=== PATIENT | female | born 2000 | race Two or more races ===

== ENCOUNTER 2024-02-28 10:11 | Observation (INO) | payer MEDICAID, SELFPAY ==
[2024-02-28] VITALS (130 sets, daily range): BP systolic 56–122; BP diastolic 35–86; PULSE 88–144; TEMP 36.6–37.2; O2SAT 60–100; BMI 33.1; BMI 34.4
--- NOTE | 2024-02-28 10:27 | ECG_ITS ---
[facility] Test Date: 2024-02-28 Pat Name: MAYELIN TAYLOR Department: Room: - Gender: Female Rn Lab: : 2000 Requested By: [id number] Order Number: [id number] Reading MD: LIZETH LARIOS Measurements Intervals [place] Rate: 90 P: 30 LA: 144 QRS: 49 QRSD: 72 T: 24 QT: 358 QTc: 406 Interpretive Statements 1100 Sinus rhythm 9110 normal ECG No previous ECG available for comparison Electronically Signed On 03-01-2024 7:32:32 EDT by LIZETH LARIOS
[2024-02-28] MEDS: 0.9 % SODIUM CHLORIDE 1,000 ML 1000 ML IV ×3 (10:45→19:00)
[2024-02-28 10:50] LABS: Basophils Percent Auto 0.2 % (0.2-2.0); Eosinophils Absolute Auto 0.1 10^3/uL (0.0-0.7); Eosinophils Percent Auto 0.8 % (0.9-7.0); Hematocrit 30.1 % (36.0-48.0); Hemoglobin 9.9 g/dL (12.0-16.0); Immature Granulocytes Abs Auto 0.02 10^3/uL (0.00-0.03); Immature Granulocytes Pct Auto 0.2 % (0.0-0.5); Lymphocytes Absolute Auto 2.1 10^3/uL (1.2-3.8); Lymphocytes Percent Auto 24.7 % (20.5-60.0); Mean Corpuscular HGB Conc 32.9 g/dL (29.9-35.2); Mean Corpuscular Hemoglobin 29.4 pg (26.7-34.0); Mean Corpuscular Volume 89.3 fL (81.0-99.0); Mean Platelet Volume 10.1 fL (9.5-13.5); Monocytes Absolute Auto 0.4 10^3/uL (0.3-0.8); Monocytes Percent Auto 4.8 % (1.7-12.0); Neutrophils Percent Auto 69.3 % (43.0-75.0); Platelet Count 335 10^3/uL (150-450); Red Blood Count 3.37 10^6/uL (4.20-5.40); Red Cell Distribution Width 13.8 % (11.0-15.0); White Blood Count 8.6 10^3/uL (4.0-11.0)
[2024-02-28 11:31] LABS: Alanine Aminotransferase 27 U/L (14-59); Albumin Level 3.4 g/dL (3.4-5.0); Alkaline Phosphatase 63 U/L (46-116); Anion Gap 11.8; Aspartate Amino Transferase 18 U/L (15-37); BUN Creatinine Ratio 11.9; Bilirubin Total 0.3 mg/dL (0.2-1.0); Calcium 8.3 mg/dL (8.5-10.1); Carbon Dioxide 24.9 mmol/L (21.0-32.0); Chloride 105 mmol/L (98-107); Estimated GFR (African America >60 (>=60); Estimated GFR (Non-African Ame >60 (>=60); Globulin 3.4 g/dL; Glucose 114 mg/dL (74-106); Potassium 3.7 mmol/L (3.5-5.1); Sodium 138 mmol/L (136-145); Total Protein 6.8 g/dL (6.4-8.2); Troponin I High Sensitivity 6.1 pg/mL (4.0-51.3)
[2024-02-28 11:32] LABS: HCG Quantitative 1747 mIU/mL; Magnesium 1.6 mg/dL (1.8-2.4)
--- NOTE | 2024-02-28 11:41 | US_ITS ---
[address] [address] Patient Name: MAYELIN TAYLOR MRN: [id number] date: 2000 Sex: F Assigned Patient Location: ER Current Patient Location: [place] Accession/Order Number: [id number] Exam Date: 02/28/2024 12:39 Report Date: 02/28/2024 14:51 At the request of: ANNMARIE NORRIS Procedure: US OB transvaginal EXAMINATION: US OB transvaginal INDICATION: vaginal bleeding 10 weeks . COMPARISON: 02/26/2024 TECHNIQUE: Transvaginal sonographic images of the pelvis were obtained. FINDINGS: Uterus size: 10.2 x 6.1 x 5.6 cm Uterus: Normal size and morphology. Normal myometrium. No intrauterine gestational sac identified. Closed cervical canal. Cervical length of 4.1 cm. Endometrial stripe thickness: 15 mm Endometrium: Normal thickness. Small volume heterogeneous avascular debris within the endometrial canal. Right Ovary: Not visualized. Right Adnexa: No abnormality. Left Ovary Size: 4.4 x 2.9 x 3.5 cm Left Ovary: Complicated 2.0 x 2.0 x 2.2 cm cyst containing echogenic debris. Left Ovarian Flow: Not performed. Left Adnexa: No abnormality. Free Fluid: None. US/US OB transvaginal IMPRESSION: 1. Gestational sac no longer present within the uterus. 2. Small volume hemorrhagic debris versus retained products of conception in the endometrial canal. 3. Left ovary 2.2 cm hemorrhagic cyst. 4. Right ovary not visualized. Electronically authenticated by: SILVESTRE ROLDAN Date: 02/28/2024 14:51
--- NOTE | 2024-02-28 12:25 | ED_ITS ---
HPI - Female Genitourinary General Chief complaint: Vaginal Bleeding Stated complaint: ABDOMINAL PAIN, POSSIBLE MISCARRIAGE Time Seen by Provider: 02/28/24 10:26 Source: patient Mode of arrival: walk-in Limitations: no limitations History of Present Illness HPI Narrative: The patient is 10 weeks according to her last evaluation by her OB doctor on February 09, at that time there was no heart sound detected and her was nonviable and she was supposed to go for D&C on March 08, 2 days ago the patient started having vaginal bleeding and she mentioned that she has been passing clots, she has been having sometimes episodes of blacking out when she is standing up or walking in the house, this happened 3 times one of them she was in the bathroom sitting up on the toilet seat. At that time she passed for few seconds and she woke up by herself according to her significant other at the bedside, the patient pale and look weak and tired She denies any nausea or vomiting and she denies any changes bowel movement, she mentioned that the bleeding has been a blood clot that according to her significant and more than her regular menstruation The patient last menstruation was December 05 Her last ultrasound done by her OB doctor on February 09 shows intrauterine and she did had 3 miscarriages before this 1 and she have only 1 kid who is 3 years old Related Data Home Medications ?Medication ?Instructions ?Recorded ?Confirmed No Known Home Medications 02/28/24 02/28/24 Allergies Allergy/AdvReac Type Severity Reaction Status Date / Time No Known Drug Allergies Allergy Verified 02/28/24 10:18 Review of Systems ROS Status of ROS 10 or more systems reviewed and unremark able except as noted in history and below [facility] Social History Highest level of school completed/degree received: Associate degree: o ccupational, technical, vocational program Exam Narrative Exam Narrative: Nurses notes and vital signs reviewed and patient is not hypoxic. General: Well-appearing and in no apparent distress. Skin: The patient is pale and tired No rash. Head: Normocephalic, atraumatic. Neck: Supple, non-tender. Eye: Pupils are equal, round and EOMI. No scleral icterus. Ears, Nose, Mouth, and Throat: TM are clear, no nasal mucosal hypertrophy. Oral mucosa is moist, no posterior oropharynx erythema, uvula is mid-line Cardiovascular: Regular Rate and Rhythm without murmur, gallop or rub. Respiratory: No accessory muscle use or respiratory distress. Lungs are clear to auscultation, no wheezing, rales or rhonchi Chest Wall: no tenderness Back: No midline thoracic or lumbar vertebral tenderness. No CVA tenderness Musculoskeletal: normal ROM, no calf or popliteal tenderness, no lower extremity edema/swelling GI: Abdomen is soft, non-distended. Normal bowel sounds. No masses appreciated. No tenderness to palpation. No rebound, guarding, or rigidity noted. Perineal exam shows a pad that almost have 50 cc of blood in it and almost 5 to 10 cc of blood dripping Neurological: A&O x4. No cranial nerve dysfunction observed. No truncal ataxia. Moves all extremities. Sensation intact. Psychiatric: Cooperative and interactive. Normal mood and affect. Constitutional Vital Signs, click to edit/add: Last Vital Signs Temp 99 F 02/28/24 20:57 Pulse 90 02/29/24 06:21 Resp 16 02/29/24 06:17 BP 93/55 02/29/24 06:15 Pulse Ox 99 02/29/24 01:30 O2 Del Method Room Air 02/28/24 20:57 Course Vital Signs Vital signs: Vital Signs Temperature 98.5 F 02/28/24 10:18 Pulse Rate 110 H 02/28/24 10:18 Respiratory Rate 18 02/28/24 10:18 Blood Pressure 100/74 02/28/24 10:18 Pulse Oximetry 100 02/28/24 10:18 Oxygen Delivery Method Room Air 02/28/24 10:18 Temperature 99 F 02/28/24 20:57 Pulse Rate 90 02/29/24 06:21 Respiratory Rate 16 02/29/24 06:17 Blood Pressure 93/55 02/29/24 06:15 Pulse Oximetry 99 02/29/24 01:30 Oxygen Delivery Method Room Air 02/28/24 20:57 MDM - Female Genitourinary MDM Narrative Medical decision making narrative: The patient EKG upon presentation showing sinus rhythm with a heart rate of [address] elevation or depression Patient was significantly orthostatic when she presented to us The patient initially was at the 90 systolic but she still looked pale and weak Her hemoglobin was 9.9 her last hemoglobin was 11.7 on February 09 according to the workup that she had and she did open her RemitPro nadine to show me the results from [facility] The patient after her blood pressure dropped to the 80s systolic she was put in Trendelenburg position. Back RBCs ordered for 2 units of blood ,initially the plan was to put her on Levophed but after speaking with Dr. Gonzalez and the FINANCIAL [employer]ER service we will hold on using the Levophed The patient will have ultrasound transvaginal obtained Patient be admitted for observation Right now the patient heart rate is 103 and her blood pressure is 103/56 Lab Data Labs: Lab Results 02/28/24 02/28/24 Range/Units 10:35 16:02 WBC 8.6 (4.0-11.0) 10^3/uL RBC 3.37 L (4.20-5.40) 10^6/uL Hgb 9.9 L 9.0 L (12.0-16.0) g/dL Hct 30.1 L 27.7 L (36.0-48.0) % MCV 89.3 (81.0-99.0) fL MCH 29.4 (26.7-34.0) pg MCHC 32.9 (29.9-35.2) g/dL RDW 13.8 (11.0-15.0) % Plt Count 335 (150-450) 10^3/uL MPV 10.1 (9.5-13.5) fL Neut % (Auto) 69.3 (43.0-75.0) % Lymph % (Auto) 24.7 (20.5-60.0) % Andrew % (Auto) 4.8 (1.7-12.0) % Eos % (Auto) 0.8 L (0.9-7.0) % Baso % (Auto) 0.2 (0.2-2.0) % Neut # (Auto) 6.0 (1.4-6.5) 10^3/uL Lymph # (Auto) 2.1 (1.2-3.8) 10^3/uL Andrew # (Auto) 0.4 (0.3-0.8) 10^3/uL Eos # (Auto) 0.1 (0.0-0.7) 10^3/uL Baso # (Auto) 0.0 (0.0-0.1) 10^3/uL Abs Immat Gran (auto) 0.02 (0.00-0.03) 10^3/uL Imm/Tot Granulo (auto) 0.2 (0.0-0.5) % PT 10.9 (9.0-11.6) sec INR 1.03 APTT 25.5 (22.3-36.2) sec Sodium 138 (136-145) mmol/L Potassium 3.7 (3.5-5.1) mmol/L Chloride 105 (98-107) mmol/L Carbon Dioxide 24.9 (21.0-32.0) mmol/L Anion Gap 11.8 BUN 8.0 (7.0-18.0) mg/dL Creatinine 0.67 (0.55-1.02) mg/dL Est GFR ( Amer) >60 (>=60) Est GFR (Non-Af Amer) >60 (>=60) BUN/Creatinine Ratio 11.9 Glucose 114 H (74-106) mg/dL Lactate 1.7 (0.4-2.0) mmol/L Calcium 8.3 L (8.5-10.1) mg/dL Magnesium 1.6 L 2.0 (1.8-2.4) mg/dL Total Bilirubin 0.3 (0.2-1.0) mg/dL AST 18 (15-37) U/L ALT 27 (14-59) U/L Alkaline Phosphatase 63 (46-116) U/L Troponin I High Sens 6.1 (4.0-51.3) pg/mL Total Protein 6.8 (6.4-8.2) g/dL Albumin 3.4 (3.4-5.0) g/dL Globulin 3.4 g/dL Albumin/Globulin Ratio 1.0 TSH 3.539 (0.358-3.740) uIU/mL Free T4 0.83 (0.76-1.46) ng/dL HCG, Quant 1747 mIU/mL Blood Type O Positive Antibody Screen Negative Crossmatch See Detail Discharge Plan Discharge Chief Complaint: Vaginal Bleeding Clinical Impression: Incomplete miscarriage, Abnormal vaginal bleeding, Acute hypotension, Hypomagnesemia Patient Disposition: Admitted as Observation Time of Disposition Decision: 11:49 Condition: Good Discharge Date/Time: 02/28/24 14:00
[2024-02-28] MEDS: ONDANSETRON PF 4 MG/2 ML VIAL IV ×2 (12:42→19:45)
[2024-02-28] MEDS: MAGNESIUM SULFATE IN WATER 2 GM/50 ML PREMIX IV (12:42)
--- NOTE | 2024-02-28 14:35 | PC.NURSE ---
Called Dr Gonzalez. No answer so left a message that patient has arrived to floor and awaiting orders.
--- NOTE | 2024-02-28 14:36 | PC.NURSE ---
Dr Gonzalez returned phone call and will be here in thirty minutes to see patient.
[2024-02-28 16:25] LABS: Hematocrit 27.7 % (36.0-48.0)
[2024-02-28] MEDS: 0.9 % SODIUM CHLORIDE 1,000 ML 999 ML IV (16:45)
--- NOTE | 2024-02-28 16:51 | P.HP_ITS ---
HPI H&P: HPI History of Present Illness Chief complaint: syncope, hypotension, hypothyroidism not treated Narrative: PATIENT PRESENTED TO ED COMPLAINING OF GENERAL DISCOMFORT, BLEEDING, S/P SAB FEBRUARY 27 AT TEN WEEKS. ORTHOSTATIC BY BLOOD PRESSURE AND HEART RATE. THE ED PHYSICIAN DID NOT RELAY THAT THIS PATIENT IS HYPOTHYROID AND HAS NOT TAKEN HER THYROID MEDICINE FOR THE LAST 12 PLUS WEEKS. THE REASON FOR NOT TAKING HER THYROID MEDICINE WAS THAT SHE WAS AND DID NOT KNOW IF THYROID MEDICINE WAS SAFE IN . HER HEALTH CARE IS [facility]IA [facility] VISITS IN A HEALTH CARE SETTING AND SHE NEVER HEARD BACK FROM THEM. HER CURRENT BLEEDING IS NOT HEAVY, JUST BLOOD CLOTS, AND THE UTERINE TRANSVAGINAL ULTRASOUND IS NOT INDICATING ANY NEED FOR URGENT D AND C. HER HEMOGLOBIN IS UNCHANGED FROM 02/27 THUS CAN NOT ATTRIBUTE THESE ORTHOSTATIC EPISODES TO OBSTETRIC REASONS. SHE HAS RECEIVED A UNIT OF PRBC'S, HER MAGNESIUM HAS BEEN REPLETED, THE REST OF HER CMP IS NORMAL. ECG IS NORMAL. A STAT THYROXINE, FREE T4 AND T3 ARE PENDING. DR. RIVERA THE HOSPITALIST HAS BEEN CONSULTED. AT THE TIME DR. RIVERA WAS CONSULTED IT WAS NOT KNOW TO ME (DR. DIALLO) OR DR. RIVERA THAT THIS PATIENT HAS HYPOTHYROIDISM AND HAS NOT BEEN TAKING HER MEDICATION FOR OVER A MONTH. PRESENTLY THE PATIENT IS IN ICU THOUGH ADMITTED TO MED SURG. THIS IS BECAUSE OF THE TWO SYNCOPAL EPISODES WHICH AT THE TIME NO EXPLANATION COULD BE FOUND. PRESENTLY DR. RIVERA IS EVALUATING THIS PATIENT AND AWAIT HER IMPRESSIONS ON FURTHER INVESTIGATIVE STUDIES NEEDED AND WHERE BEST TO COMPLETE THEM Opioid HPI Opioid Management Most Recent Pain and Opioid Data: Last Pain Scale 6 02/28/24 10:45 Last Pain Assessment 02/28/24 16:16 Last ED Pain Assessment 02/28/24 10:45 Last ORT Total Score 4 02/28/24 16:12 Last ORT Risk Category Moderate Risk 02/28/24 16:12 Pain management goals: NOT APPLICABLE Review of Systems ROS Narrative STATED ABOVE Constitutional Reports: fatigue Cardiovascular Reports: lightheadedness Gastrointestinal Reports: abdominal pain and nausea Neurological Reports: numbness in extremities Psychiatric Reports: other (CHANGE IN MOOD DESCRIBED BY PARTNER, NOT MOOD SWINGS) PFSH PFSH Social History Highest level of school completed/degree received: Associate degree: occupational, technical, vocational program Meds Home Medications and Allergies Home Medications ?Medication ?Instructions ?Recorded ?Confirmed ?Type No Known Home Medications 02/28/24 02/28/24 History Allergies Allergy/AdvReac Type Severity Reaction Status Date / Time No Known Drug Allergies Allergy Verified 02/28/24 10:18 Exam Narrative Exam Narrative: FEELS LETHARGIC, HAS NUMBNESS IN FINGERTIPS BILATERALLY, S/P SAB ON 02/28/24 WITHOUT SIGNIFICANT BLEEDING, DEMONSTRATING 4 DISTINCT SYNCOPAL EPISODES TWO OF WHICH WITNESSED BY DR. DIALLO, STOPPED TAKING HER THYROID MEDICINE OVER A MONTH AGO BECUASE SHE WAS AND CONCERNED MEDICATION WOULD HARM BABY AND DOCTORS CARING FOR HER DID NOT RETURN CALL REGARDING SAFETY OF THYROID IN . CURRENTLY HAS SOME NAUSEA WITHOUT VOMITING. URINALYSIS IS NORMAL. Constitutional Vital Signs, click to edit/add: Last Vital Signs Temp 98.9 F 02/28/24 14:25 Pulse 115 H 02/28/24 15:47 Resp 16 02/28/24 14:25 BP 111/64 02/28/24 14:25 Pulse Ox 100 02/28/24 14:25 O2 Del Method Room Air 02/28/24 14:25 Documenting provider has reviewed patient's vital signs: yes Common normals: oriented x3, alert and well nourished Exam limitations: altered mental status (HAS HAD 4 SYNCOPAL EPISODES IN LAST 5 HOURS) General appearance: cooperative, comfortable, well kempt, well developed and lethargic Nutritional appearance: overweight Orientation/consciousness: Yes oriented to person, Yes oriented to place and Yes oriented to time [place] Common normals: normocephalic, head/scalp atraumatic and hearing grossly normal bilaterally Head and scalp: normal to inspection Face and sinus: normal facial exam Nose: external nose normal General ear: other (STATES HER HEARING SEEMS MUTED) External ear: external ears normal Mouth: oral and palatal mucosa normal Eye Common normals: PERRL, conjunctivae normal and no scleral icterus General eye: normal appearance of both eyes Visual acuity: acuity normal Neck & C-Spine Common normals: full ROM, no lymphadenopathy, supple and no meningeal signs Thyroid: thyroid normal Chest Common normals: inspection of chest normal Respiratory Common normals: normal respiratory effort, no retractions and no use of accessory muscles Cardio Common normals: regular rate and regular rhythm GI Common normals: Normal to inspection, nondistended, normoactive bowel sounds present, soft to palpation, non-tender and no hepatosplenomegaly Inspection: pannus present Auscultation: normoactive bowel sounds Palpation: soft Common normals: no CVA tenderness, external appearance normal and appearance of the cervix normal (NORMAL TRANSVAGINAL ULTRASOUND) Bladder/kidney exam: catheter in place and other (BLEEDING CAUSED BY ANDRADE INSERTION) External Female Exam: normal appearance of the urethra Bimanual exam- vagina & uterus: normal bimanual exam (TRANSVAGINAL ULTRASOUND REVIEWED AND ESSENTIALLY UNREMARKABLE) Back & Pelvis Common normals: no thoracic nor lumbar tenderness Extremity Common normals: normal to inspection, full ROM, no joint enlargement and no calf tenderness Neuro Common normals: oriented x3, CN's II-XII intact bilaterally, moves all extremities, no focal motor deficits and no sensory deficits noted (BILATERAL FINGER TIPS NUMB) Sensorium/orientation: awake, alert, oriented to person, oriented to place and oriented to time Speech: speech normal Other: PER DR. RIVERA, THIS PATIENT HAD BEEN ON SSRI AND WELLBUTRIN AND VISTARIL. IN ADDITION SHE WAS ON THYROID MEDICATION WHICH WAS STARTED AFTER PATIENT STOPPED ALL OF HER MEDS COLD [place] AND BECAME SO DEPRESSED AND FEELING LETHARGIC THAT SHE STARTED DRINKING RED BULL. THESE MEDS WERE STOPPED BECAUSE THE PATIENT FOUND OUT SHE WAS AND WAS CONCERNED THEY WOULD HARM HER BABY. SHE DID NOT HAVE ADEQUATE CARE AT THE TIME AND DID WHAT SHE THOUGHT WAS BEST. Psych Common normals: mental status grossly normal, thought process normal, cooperative, affect normal and speech normal Appearance: well kempt Attitude: calm and engaged Activity/motor behavior: appropriate eye contact Speech: normal speech Mood and affect: euthymic mood Thought process: normal thought process Results Labs Labs: Short CBC 02/28/24 02/28/24 Range/Units 10:35 16:02 WBC 8.6 (4.0-11.0) 10^3/uL Hgb 9.9 L 9.0 L (12.0-16.0) g/dL Hct 30.1 L 27.7 L (36.0-48.0) % Plt Count 335 (150-450) 10^3/uL BMP 02/28/24 10:35 Sodium 138 Potassium 3.7 Chloride 105 Carbon Dioxide 24.9 BUN 8.0 Creatinine 0.67 Glucose 114 H Calcium 8.3 L Liver Function 02/28/24 Range/Units 10:35 Total Bilirubin 0.3 (0.2-1.0) mg/dL AST 18 (15-37) U/L ALT 27 (14-59) U/L Alkaline Phosphatase 63 (46-116) U/L Albumin 3.4 (3.4-5.0) g/dL Assessment and Plan Assessment and Plan (1) Hypomagnesemia: Assessment and Plan: MAGNESIUM DEFICIT CORRECTED IN ED (2) Acute hypotension: Assessment and Plan: IT IS NOW BELIEVED THAT THIS PATIENT'S SYNCOPAL EPISODES DUE TO CESSATION QUICK LY OF SSRI, WELLBUTRIN, VISTARIL, AND THYROID MEDICATION. NONE OF THESE MEDICATIONS WERE REPORTED BY THE ED PHYSICIAN WHO ASSUMED ALL PRESENTING PROBLEM DUE TO SAB. HOWEVER, NOT ACTIVELY BLEEDING, HEMOGLOBIN STABLE SINCE 02/27, AND PELVIC ULTRASOUND ESSENTIALLY UNREMARKABLE. HAS BEEN TRANSFERRED TO ICU GIVEN THESE 4 EPISODES OF SYNCOPE AND PENDING RESPONSE TO RESUMPTION OF HOME MEDICATIONS WHICH PATIENT ABRUPTLY STOPPED. (3) Abnormal vaginal bleeding: Assessment and Plan: S/P TEN WEEK LOSS WITH NORMAL BLEEDING AND CURRENT UNREMARKABLE ULTRASOUND OF UTERUS (4) Incomplete miscarriage: Assessment and Plan: FOLLOW HCG TO LESS THAN OR EQUAL TO 5 (5) Hypothyroidism: Assessment and Plan: PATIENT WAS PUT ON THYROID MEDICATION AFTER STOPPING HER TWO ANTIDEPRESSANTS ABRUPTLY AND COMPLAINING OF DEPRESSION AND LETHARGY TO PHYSICIAN, SHE WAS STARTED ON THYROXIN WHICH SHE ALSO ABRUPTLY STOPPED THINKING IT WOULD HARM BABY BUT BEGAN DRINKING REDBULL Qualifiers: Hypothyroidism type: unspecified Qualified Code(s): E03.9 - Hypothyroidism, unspecified (6) SAB (spontaneous ): Assessment and Plan: FOLLOWING QUANTS TO LESS THAN OR EQUAL TO 5 Urinary Catheter Management Urinary Catheter Management Urethral: Cath placed during this visit: yes Urethral indwelling: Yes Reason for continuing: other continuation reason (WILL BE ABLE TO DISCONTINUE ANDRADE WHEN NO LONGER SYNCOPAL WHICH IS LIKELY DUE TO CESSATION OF MEDICATIONS LISTED ABOVE WITHOUT TAPERING) Insertion date: 02/28/24 Insertion time: 16:12
--- NOTE | 2024-02-28 16:52 | P.CN_ITS ---
Consult Note: HPI Data of Consult Requesting Physician: Griselda Gonzalez MD Primary Care Provider: Non-Staff Physician, Consult Narrative Reason for consult: hypotension Narrative: Patient is a 23 y.o female who presented to the ER today after having a 10 week demise at home. She continues to pass large clots, and had an episode of bleeding for 1 hour while at work this week. She denies any prior complications with , but had 2 other 1st trimester miscarriages. She has been getting her OB care in [place] and recently moved to [place]. She recently diagnosed with hypothyroidism, also has history of depression. When she found out she was 10 weeks ago, she stopped all her medications including her thyroid medication. She is always tired so has been drinking red bulls and monster drinks. She has one healthy 3 year old boy. Her family history is limited but her mothers side has diabetes and HTN. She personally has no prior history of HTN or DM2. Her Boyfriend is present at bedside today. When she presented to ER she was treated for symptomatic anemia from vaginal/uterine bleeding from miscarriage. Patient received 1 unit of PRBC's. She continued to have hypotension 80's/50's [address] tachycardia. Dr. Gonzalez of director index evaluated the patient and ultrasound and feels that a d&C is not warranted at this time. I was consulted for continued hypotension, and a syncopal episode lasting a few seconds. She has no known heart issues and never had issues with this at home. cc:: CC: Griselda Gonzalez MD Review of Systems ROS Narrative ROS: a complete review of systems were reviewed with patient and are positive as below or listed in History of Chief Complaint. General: no fever, chills, night sweats Head: no headache, trauma, visual changes, nausea or vomiting Skin: no reported rashes, itching or sores Eyes: no blurriness of vision Ears: no reported hearing loss, vertigo, earache, or tinnitus Throat: no sore throat, hoarseness, swelling of neck, or tongue pain Heart: no chest pain Lungs: no shortness of breath or cough GI: no diarrhea or vomiting/nausea Urinary: no urinary urgency, frequency or pain Neuro: numbness or tingling in both hands HEM: vaginal bleeding ENDO:thyroid problems Psych: anxiety and depression PFSH PFSH Social History Highest level of school completed/degree received: Associate degree: occupational, technical, vocational program Meds Home Medications and Allergies Home Medications ?Medication ?Instructions ?Recorded ?Confirmed ?Type No Known Home Medications 02/28/24 02/28/24 History Allergies Allergy/AdvReac Type Severity Reaction Status Date / Time No Known Drug Allergies Allergy Verified 02/28/24 10:18 Exam Narrative Exam Narrative: General: Patient is alert, and oriented to person, place and time with normal affect, proper hygiene, skin pallor Skin: no visible rashes, or ulcers Head: atraumatic, acephalic Eyes: PERRLA, no nystagmus present, conjunctiva clear, no scleral icterus Ears: normal gross auditory acuity Heart: increased rate and normal rhythm, no murmurs/rubs/gallops Lungs: no audible wheezes, crackles and normal breath sounds all lung pantoja Abdomen: Normal audible bowel sounds, no distension, No palpable masses, no organomegaly, no rebound/guarding/ or rigidity Musculoskeletal:no swelling bilateral lower extremities Neuro: CN II-X grossly intact Constitutional Vital Signs, click to edit/add: Last Vital Signs Temp 98.9 F 02/28/24 14:25 Pulse 115 H 02/28/24 15:47 Resp 16 02/28/24 14:25 BP 111/64 02/28/24 14:25 Pulse Ox 100 02/28/24 14:25 O2 Del Method Room Air 02/28/24 14:25 Results Labs Labs: Short CBC 02/28/24 02/28/24 Range/Units 10:35 16:02 WBC 8.6 (4.0-11.0) 10^3/uL Hgb 9.9 L 9.0 L (12.0-16.0) g/dL Hct 30.1 L 27.7 L (36.0-48.0) % Plt Count 335 (150-450) 10^3/uL BMP 02/28/24 10:35 Sodium 138 Potassium 3.7 Chloride 105 Carbon Dioxide 24.9 BUN 8.0 Creatinine 0.67 Glucose 114 H Calcium 8.3 L Liver Function 02/28/24 Range/Units 10:35 Total Bilirubin 0.3 (0.2-1.0) mg/dL AST 18 (15-37) U/L ALT 27 (14-59) U/L Alkaline Phosphatase 63 (46-116) U/L Albumin 3.4 (3.4-5.0) g/dL Assessment and Plan Assessment and Plan (1) Acute hypotension: Assessment and Plan: Give 1 L fluid bolus, give 2 units of PRBC's, check CBC q12 hours, may need surgical intervention if Hb continues to drop. Rule out infection with UA, latic acid, thyroid studies, Urine drug screen and chest X-ray. patient also needs echo but cannot get at [facility] on the weekend. (2) Hypothyroidism: Assessment and Plan: recheck TSH and Free T4, restart levothyroxine as i think this is contributing. Qualifiers: Hypothyroidism type: unspecified Qualified Code(s): E03.9 - Hypothyroidism, unspecified (3) Hypomagnesemia: Assessment and Plan: replaced and recheck was normal 2.0. (4) Abnormal vaginal bleeding: Assessment and Plan: will follow along with director index (5) Depression: Assessment and Plan: patient was taking celexa, wellbutrin and Vistaril, restart Celexa. Qualifiers: Depression Type: unspecified Qualified Code(s): F32.A - Depression, unspecified Plan patient is a full code, work up pending, if symptoms worsen or do not improve will need transferred to higher level care for full cardiac work up, echocardiogram, etc.
--- NOTE | 2024-02-28 16:52 | XR_ITS ---
The [address] [address] Patient Name: MAYELIN TAYLOR MRN: [id number] date: 2000 Sex: F Assigned Patient Location: ICU Current Patient Location: ICU Accession/Order Number: [id number] Exam Date: 02/28/2024 17:10 Report Date: 02/28/2024 18:24 At the request of: WILL RIVERA Procedure: XR chest 1V EXAM: XR chest 1V HISTORY: hypotension, syncope COMPARISON: None. TECHNIQUE: Chest X-ray AP, 1 view FINDINGS: Support devices: None. Lungs/pleura: No consolidation, effusion, or pneumothorax. Heart and mediastinum: Normal contours. Bones: No acute abnormality identified. XR/XR chest 1V Impression: No radiographic evidence of acute cardiopulmonary process. Electronically authenticated by: JACE JARVIS Date: 02/28/2024 18:24
--- NOTE | 2024-02-28 17:01 | PC.NURSE ---
Patient rang to use restroom around 1330 to use the restroom. Patient dangled on the side of the bed, stood up, no dizziness. Walked to restroom with adjusto writer operator. Patient sat on the toilet and stated, I don't feel so good. Patient said I feel like I'm going to pass out adjusto writer operator stood in front of patient and continued saying her name and talking to her. Patient went unresponsive times 4 in about 3 minutes. Hot Packer was able to revive patient's concisus with a sternum rub. Hot Packer immediately put on the call light for assistance due to patient continuing to go in and out of consciousness. Hot Packer then yelled for help. Fabi, Maira, and Maliha arrived with Dr Gonzalez. patient was alert when they arrived. Fabi obtained vitals while Luly helped with stabilizing patients position on the toilet. Maira obtained a wheelchair. Patient was taken to bed via w/c and transferred without difficulty. Around 1600 Hot Packer was placing a Urbina catheter per Dr Gonzalez's order patient is on bedrest and she wanted an accurate output. Hot Packer had placed a blood pressure cuff on patient prior to this procedure in case she had another unresponsive event. Patient again stated again, I do not feel so well. Then patient went unresponsive as adjusto writer operator was giving patient the sternum rub she started the BP vitals machine. Patients BP was 63/57. Hot Packer continued to push the vitals machine while patient was becoming alert. The next BP was 79/54. The last one was 84/56. Hot Packer came out and gave the information to Dr Gonzalez. Hot Packer explained that patient's color during this even was very dusky and gutierrez. Dr Gonzalez went and assessed patient. During that time she had told me to do a hospitalist consult STAT. Dr Carl requested I call her. Upon conversation it was decided for patient to be transferred to the unit until the patient could be transferred out to another facility. Patient was taken immediately to ICU by Maira and myself.
[2024-02-28 17:02] LABS: INR 1.03; Partial Thromboplastin Time 25.5 sec (22.3-36.2); Prothrombin Time 10.9 sec (9.0-11.6)
[2024-02-28 17:11] LABS: Free T4 0.83 ng/dL (0.76-1.46)
[2024-02-28 17:14] LABS: Lactate/Lactic Acid 1.7 mmol/L (0.4-2.0)
[2024-02-28 17:15] LABS: Thyroid Stimulating Hormone 3.539 uIU/mL (0.358-3.740)
[2024-02-28] MEDS: ACETAMINOPHEN 325 MG TABLET 650 MG PO (19:44)
[2024-02-28] MEDS: METHYLERGONOVINE MALEATE 0.2 MG TABLET PO (20:00)
[2024-02-28] MEDS: 0.9 % SODIUM CHLORIDE 1,000 ML 100 ML IV (20:34)
[2024-02-28 23:53] LABS: Hematocrit 24.4 % (36.0-48.0); Hemoglobin 8.2 g/dL (12.0-16.0)
[2024-02-29] VITALS (154 sets, daily range): BP systolic 73–117; BP diastolic 37–73; PULSE 60–126; TEMP 36.4–37.1; O2SAT 97–100
[2024-02-29 05:52] LABS: Basophils Percent Auto 0.4 % (0.2-2.0); Eosinophils Percent Auto 0.5 % (0.9-7.0); Hemoglobin 7.2 g/dL (12.0-16.0); Immature Granulocytes Abs Auto 0.02 10^3/uL (0.00-0.03); Immature Granulocytes Pct Auto 0.2 % (0.0-0.5); Lymphocytes Absolute Auto 2.8 10^3/uL (1.2-3.8); Lymphocytes Percent Auto 34.4 % (20.5-60.0); Mean Corpuscular HGB Conc 33.8 g/dL (29.9-35.2); Mean Corpuscular Hemoglobin 30.3 pg (26.7-34.0); Mean Corpuscular Volume 89.5 fL (81.0-99.0); Mean Platelet Volume 10.7 fL (9.5-13.5); Monocytes Absolute Auto 0.7 10^3/uL (0.3-0.8); Monocytes Percent Auto 8.1 % (1.7-12.0); Neutrophils Absolute Auto 4.6 10^3/uL (1.4-6.5); Neutrophils Percent Auto 56.4 % (43.0-75.0); Platelet Count 173 10^3/uL (150-450); Red Blood Count 2.38 10^6/uL (4.20-5.40); Red Cell Distribution Width 13.8 % (11.0-15.0); White Blood Count 8.1 10^3/uL (4.0-11.0)
[2024-02-29 05:55] LABS: Hematocrit 21.3 % (36.0-48.0)
[2024-02-29 06:15] LABS: HCG Quantitative 573 mIU/mL
[2024-02-29 06:17] LABS: Anion Gap 8.3; BUN Creatinine Ratio 15.8; Calcium 7.7 mg/dL (8.5-10.1); Carbon Dioxide 23.5 mmol/L (21.0-32.0); Chloride 110 mmol/L (98-107); Estimated GFR (African America >60 (>=60); Estimated GFR (Non-African Ame >60 (>=60); Glucose 102 mg/dL (74-106); Potassium 3.8 mmol/L (3.5-5.1); Sodium 138 mmol/L (136-145)
[2024-02-29] MEDS: LACTATED RINGER'S SOLUTION 1,000 ML 200 ML IV (07:00)
--- NOTE | 2024-02-29 07:16 | PM.PN ---
Progress Note: Subjective Subjective Interval history: Overnight, patient continues to pass vaginal blood clots with some minimal cramping. Recheck Hemoglobin this morning was 7.9 despite transfusion of 2 units yesterday. Patient BP 90/50's. She says she feels better but still appears pale, still having feeling of passing out. She received 2L of fluid yesterday. I have ordered 2 more units of PRBC's today along with LR @200, minimal urine output. Per RESISTOR TESTING MACHINE OPERATOR recs she was given Methergine last night. She still continues to pass large clots. discussed normal thyroid labs despite not taking her medication recently, normal chest X-ray, lactate, liver and coagulation labs. At this point I feel her Uterine bleeding is causing, symptomatic anemia and hypotension related to volume loss. Exam Narrative Exam Narrative: General: Patient is alert, and oriented to person, place and time with normal affect, proper hygiene Skin: no visible rashes, or ulcers, pallor Head: atraumatic, acephalic Eyes: PERRLA, no nystagmus present, conjunctiva clear, no scleral icterus Ears: normal gross auditory acuity Heart: Normal rate and rhythm, no murmurs/rubs/gallops Lungs: no audible wheezes, crackles and normal breath sounds all lung pantoja Abdomen: Normal audible bowel sounds, no distension, No palpable masses, no organomegaly, no rebound/guarding/ or rigidity Neuro: CN II-X grossly intact Constitutional Vital Signs, click to edit/add: Last Vital Signs Temp 99 F 02/28/24 20:57 Pulse 90 02/29/24 06:21 Resp 16 02/29/24 06:17 BP 93/55 02/29/24 06:15 Pulse Ox 99 02/29/24 01:30 O2 Del Method Room Air 02/28/24 20:57 Progress Note: Objective Labs Labs: Short CBC 02/28/24 02/28/24 02/28/24 Range/Units 10:35 16:02 23:45 WBC 8.6 (4.0-11.0) 10^3/uL Hgb 9.9 L 9.0 L 8.2 L (12.0-16.0) g/dL Hct 30.1 L 27.7 L 24.4 L (36.0-48.0) % Plt Count 335 (150-450) 10^3/uL 07/21/24 Range/Units 05:42 WBC 8.1 (4.0-11.0) 10^3/uL Hgb 7.2 L (12.0-16.0) g/dL Hct 21.3 L* (36.0-48.0) % Plt Count 173 (150-450) 10^3/uL BMP 02/28/24 02/29/24 10:35 05:42 Sodium 138 138 Potassium 3.7 3.8 Chloride 105 110 H Carbon Dioxide 24.9 23.5 BUN 8.0 9.0 Creatinine 0.67 0.57 Glucose 114 H 102 Calcium 8.3 L 7.7 L Liver Function 02/28/24 Range/Units 10:35 Total Bilirubin 0.3 (0.2-1.0) mg/dL AST 18 (15-37) U/L ALT 27 (14-59) U/L Alkaline Phosphatase 63 (46-116) U/L Albumin 3.4 (3.4-5.0) g/dL Progress Note: A&P Assessment and Plan (1) Acute blood loss anemia: (2) Symptomatic anemia: (3) Abnormal vaginal bleeding: (4) Incomplete miscarriage: (5) Hypothyroidism: Assessment and Plan: continue levothyroxine 50mcg daily Qualifiers: Hypothyroidism type: unspecified Qualified Code(s): E03.9 - Hypothyroidism, unspecified (6) Hypomagnesemia: Assessment and Plan: replaced yesterday, normal today (7) Depression: Assessment and Plan: restart celexa Qualifiers: Depression Type: unspecified Qualified Code(s): F32.A - Depression, unspecified Plan patient still hypotensive, still having presyncopal events. I have restarted levothyroxine at 50mcg daily, and celexa 10mg daily. Patient still continues to Pass large blood clots vaginally. She was given Methergine x 1 last night. Hemoglobin down to 7.9, will transfuse with 2 more PRBC s, all other work up negative. I feel her uterine/vaginal blood loss is the only explanation, causing symptomatic anemia and significant hypovolemia. Continue fluid resuscitation and blood transfusions to maintain Hemoglobin >9. The goal is to stop her uterine/vaginal bleeding and would appreciate restrictive preparation operator recommendation on this. Patient may need Transferred to higher level of care if bleeding continues despite best efforts. Urinary Catheter Management Urinary Catheter Management Urethral: Cath placed during this visit: yes Urethral indwelling: Yes Reason for continuing: acute urinary retention Insertion date: 02/28/24 Insertion time: 16:12
[2024-02-29] MEDS: LEVOTHYROXINE SODIUM 25 MCG TABLET 50 MCG PO (08:26)
[2024-02-29] MEDS: METHYLERGONOVINE MALEATE 0.2 MG TABLET PO (08:27)
[2024-02-29] MEDS: CITALOPRAM HYDROBROMIDE 20 MG TABLET 10 MG PO (09:39)
--- NOTE | 2024-02-29 13:50 | PM.DST ---
Transfer Discharge Sum: Prov Provider Date of admission: 02/28/24 16:30 Primary care physician: Non-Staff Physician, Admitting clinician: Griselda Gonzalez Attending physician on admission: Griselda Gonzalez Consults: 02/28/24 16:30 Consult to Hospitalist Routine Consulting Provider: Sonya Carl Reason for consultation: medical/medication management Attending physician on discharge: Griselda Gonzalez Discharging clinician: Griselda Gonzalez Anticipated date of transfer: 02/29/24 DS: Diagnosis Discharge Diagnosis (1) Syncopal episodes: Assessment and plan: patient has recurrent syncopal episodes associated with changing position and lying supine in bed. not related to low magnesium, abnormal bleeding s /p SAB on 02/27, or hypothyroidism . needs a cardiology and heme-onc evaluation which this hospital can not provide. the patient is to be transferred to a tertiary care hospital, ([facility]) who can provide this patient with the necessary diagnostic evaluation (2) Acute blood loss anemia: Assessment and plan: not currently bleeding, s/p SAB 02/27. presented with hemoglobin of 9.9. not 7.1 due to dilutional effect of crystalloid. on pelvic ultrasound uterus normal size, endometrium normal, no products of conception, SAB occurred at ten weeks after ultrasound showed no pole. Has received two units of PRBC's (3) Depression: Assessment and plan: patient stopped celexa and wellbutrin when found out in late December early January. did not discuss with doctor. did not have OB. the celexa was restarted. no suicidal ideation or severe depression presently. apparently she was started on thyroid medication when the patient voiced complaint that her celexa and wellbutrin were not completely effective in treating depression however her T3 and free T4 normal Qualifiers: Depression Type: unspecified Qualified Code(s): F32.A - Depression, unspecified Plan RECURRENT SYNCOPAL EPISODES OF UNKNOWN ETIOLOGY. NEED TO TRANSFER TO [facility] TO HAVE CARDIOLOGY AND HEME-ONC CONSULT Transfer Discharge Sum: Med Medications Active and Home Medications: Home Medications No Known Home Medications 02/28/24 [History Confirmed 02/28/24] Active Medications Acetaminophen (Acetaminophen 325 Mg Tablet) 650 mg PO Q4H PRN PRN Reason: Pain Last Admin: 02/28/24 19:44 Dose: 650 mg Celecoxib (Citalopram Hydrobromide 20 Mg Tablet) 10 mg PO QD COUNT INCLUDES THE [facility] Last Admin: 02/29/24 09:39 Dose: 10 mg Sodium Chloride (Sodium Chloride 0.9% 250 Ml) 250 mls @ 10 mls/hr IV .Q24H PRN PRN Reason: LINE CLEARANCE Lactated Ringer's (Lactated Ringers) 1,000 mls @ 250 mls/hr IV .Q4H HUGH Sodium Chloride (Sodium Chloride 0.9% 1,000 Ml) 1,000 mls @ 1,000 mls/hr IV .Q1H ONE Stop: 02/29/24 14:41 Levothyroxine Sodium (Levothyroxine Sodium 25 Mcg Tablet) 50 mcg PO ACB HUGH Last Admin: 02/29/24 08:26 Dose: 50 mcg Methylergonovine Maleate (Methylergonovine Maleate 0.2 Mg Tablet) 0.2 mg PO Q6H PRN PRN Reason: Uterine Contractility/Contract Last Admin: 02/29/24 08:27 Dose: 0.2 mg Ondansetron HCl (Ondansetron Pf 4 Mg/2 Ml Vial) 4 mg IV Q6H PRN PRN Reason: Nausea And Vomiting Last Admin: 02/28/24 19:45 Dose: 4 mg Transfer Discharge Sum: Hosp Hospital Course Hospital course: STABLE IN ICU Status at Discharge Cognitive capacity at transfer: NORMAL COGNITIVE FUNCTION Functional capacity at transfer: bed bound Overall status at transfer: patient is not back to baseline Time Spent with Patient Time attestation: Total time spent providing and/or coordinating transfer services: Total time spent: greater than 30 minutes Exam Constitutional: Vital Signs, click to edit/add: Last Vital Signs Temp 98.4 F 02/29/24 10:57 Pulse 83 02/29/24 12:16 Resp 16 02/29/24 12:16 BP 89/48 L 02/29/24 12:15 Pulse Ox 98 02/29/24 12:15 O2 Del Method Room Air 02/29/24 10:57 Documenting provider has reviewed patient's vital signs: yes Common normals: no apparent distress, oriented x3, healthy appearing, alert and well nourished General appearance: cooperative, comfortable and well developed Nutritional appearance: overweight Orientation/consciousness: Yes oriented to person, Yes oriented to place and Yes oriented to time HENMT: Common normals: normocephalic, head/scalp atraumatic, hearing grossly normal bilaterally and moist oral mucous membranes Face and sinus: normal facial exam Eye: Common normals: PERRL, EOMs intact bilaterally, conjunctivae normal and no scleral icterus General eye: normal appearance of both eyes Alignment: alignment normal Neck & C-Spine: Common normals: full ROM, no lymphadenopathy, supple, no meningeal signs and thyroid normal Respiratory: Common normals: normal respiratory effort, no retractions, no use of accessory muscles and clear to auscultation bilaterally Effort & inspection: able to speak in complete sentences Auscultation: clear to auscultation bilaterally Cardio: Common normals: no JVD, regular rate and regular rhythm GI: Common normals: Normal to inspection, nondistended, normoactive bowel sounds present, soft to palpation and non-tender : Common normals: no CVA tenderness Bladder/kidney exam: catheter in place Bimanual exam- vagina & uterus: other (TRANSVAGINAL PELVIC ULTRASOUND ESSENTIALLY WNL, SMALL BLOOD COLLECTION A) Discharge Plan Discharge Disposition: [facility] Acute Care Hospital Condition: Serious Assessment: stable but continued diagnostic evaluation needs to occur at a tertiary care hospital Activity Restrictions/Additional Instructions: bedrest Discharge Location: [facility]
[2024-02-29] MEDS: 0.9 % SODIUM CHLORIDE 1,000 ML 1000 ML IV (14:00)
[2024-02-29 14:13] LABS: Hematocrit 25.3 % (36.0-48.0); Hemoglobin 8.8 g/dL (12.0-16.0)
[2024-02-29] MEDS: LACTATED RINGER'S SOLUTION 1,000 ML 250 ML IV (15:27)
--- NOTE | 2024-02-29 19:16 | PC.NURSE ---
Patient transfered to [facility] rm A539, [facility] transport left with patient at 1848, patient was alert, orientated, stable. Nurse report called to [phone].
[2024-03-02 08:11] LABS: Triiodothyronine (T3) 113 ng/dL (71-180)
== END 2024-02-29 18:48 | disposition short-term general hospital (02) ==
LOC: ER 12:30 → ICU 16:53
PROVIDERS: Family Medicine; Admitting Provider Obstetrics & Gynecology; Emergency Provider Emergency Medicine; Visit Provider Obstetrics & Gynecology
DX: R55 Syncope and collapse (principal); D62 Acute posthemorrhagic anemia; E83.42 Hypomagnesemia; I95.9 Hypotension, unspecified; E03.9 Hypothyroidism, unspecified; N93.9 Abnormal uterine and vaginal bleeding, unspecified; O03.4 Incomplete spontaneous abortion without complication; F32.A Depression, unspecified; T43.206A Underdosing of unspecified antidepressants, initial encounter; T38.1X6A Underdosing of thyroid hormones and substitutes, initial encounter
CPT/HCPCS: 36410; 36415; 36430; 36592; 51702; 71045; 76817; 80048; 80053; 80307; 83605; 83735; 83880; 84439; 84443; 84480; 84484; 84702; 85014; 85018; 85025; 85610; 85730; 86850; 86900; 86901; 86923; 93005; 96361; 96376; 99285; C1887; G0378; J2405; J3475; P9016

== ENCOUNTER 2024-03-03 11:02 | Emergency (ER) | payer MEDICAID, SELFPAY ==
[2024-03-03] VITALS (19 sets, daily range): BP systolic 94–108; BP diastolic 58–73; PULSE 68–89; TEMP 36.7; O2SAT 98–100; BMI 33.7
--- NOTE | 2024-03-03 11:32 | ECG_ITS ---
[facility] Test Date: 2024-03-03 Pat Name: MAYELIN TAYLOR Department: Room: - Gender: Female Whittling Room Operator: : 2000 Requested By: Order Number: [id number] Reading MD: LIZETH LARIOS Measurements Intervals [place] Rate: 78 P: 24 SD: 156 QRS: 60 QRSD: 78 T: 53 QT: 368 QTc: 401 Interpretive Statements 1100 Sinus rhythm 9110 normal ECG Compared to ECG 02/28/2024 10:53:39 No significant changes Electronically Signed On 03-03-2024 13:37:26 EDT by LIZETH LARIOS
--- NOTE | 2024-03-03 11:49 | ED.CHESTPAI1 ---
HPI - Chest Pain General Chief Complaint: Chest Pain Stated Complaint: SOB Time Seen by Provider: 03/03/24 11:20 Source: patient Mode of arrival: walk-in Limitations: no limitations History of Present Illness HPI narrative: The patient was just in the hospital after she was discharged Friday from [facility] for vaginal bleeding and D&C after miscarriage The patient is coming to us with chest pressure that she started having last night she is denying any nausea vomiting or dizziness She also denying any coughing but she mentioned that it is mostly a pressure in the middle of the chest that been continuous since last night Related Data Home Medications ?Medication ?Instructions ?Recorded ?Confirmed bupropion HCl 150 mg 24 hr tablet, 150 mg PO DAILY 03/03/24 03/03/24 extended release citalopram 10 mg tablet 10 mg PO DAILY 03/03/24 03/03/24 hydroxyzine HCl 25 mg tablet 25 mg PO DAILY 03/03/24 03/03/24 ketorolac 10 mg tablet 10 mg PO BID 03/03/24 03/03/24 levothyroxine 50 mcg tablet 50 mcg PO DAILY 03/03/24 03/03/24 Allergies Allergy/AdvReac Type Severity Reaction Status Date / Time No Known Drug Allergies Allergy Verified 02/28/24 10:18 Review of Systems ROS Status of ROS 10 or more systems reviewed and unremarkable except as noted in history and below [facility] Medical History (Updated 02/29/24 @ 14:03 by Griselda Gonzalez MD) Incomplete miscarriage ?O03.4 - Incomplete spontaneous without complication (ICD-10) Hypomagnesemia ?E83.42 - Hypomagnesemia (ICD-10) Abnormal vaginal bleeding ?N93.9 - Abnormal uterine and vaginal bleeding, unspecified (ICD-10) Acute hypotension ?I95.9 - Hypotension, unspecified (ICD-10) Hypothyroidism ?E03.9 - Hypothyroidism, unspecified (ICD-10) SAB (spontaneous ) ?O03.9 - Complete or unspecified spontaneous without complication (ICD-10) Social History Highest level of school completed/degree received: Associate degree: occupational, technical, vocational program Exam Narrative Exam Narrative: Nurses notes and vital signs reviewed and patient is not hypoxic. General: Well-appearing and in no apparent distress. Skin: Warm, dry, no pallor noted. No rash. Head: Normocephalic, atraumatic. Neck: Supple, non-tender. Eye: Pupils are equal, round and EOMI. No scleral icterus. Ears, Nose, Mouth, and Throat: TM are clear, no nasal mucosal hypertrophy. Oral mucosa is moist, no posterior oropharynx erythema, uvula is mid-line Cardiovascular: Regular Rate and Rhythm without murmur, gallop or rub. Respiratory: No accessory muscle use or respiratory distress. Lungs are clear to auscultation, no wheezing, rales or rhonchi Chest Wall: no tenderness Back: No midline thoracic or lumbar vertebral tenderness. No CVA tenderness Musculoskeletal: normal ROM, no calf or popliteal tenderness, no lower extremity edema/swelling GI: Abdomen is soft, non-distended. Normal bowel sounds. No masses appreciated. No tenderness to palpation. No rebound, guarding, or rigidity noted. Neurological: A&O x4. No cranial nerve dysfunction observed. No truncal ataxia. Moves all extremities. Sensation intact. Psychiatric: Cooperative and interactive. Normal mood and affect. Constitutional Vital Signs, click to edit/add: Last Vital Signs Temp 98.1 F 03/03/24 11:17 Pulse 80 03/03/24 11:17 Resp 18 03/03/24 11:17 BP 107/73 03/03/24 11:17 Pulse Ox 99 03/03/24 11:17 O2 Del Method Room Air 03/03/24 11:17 Course Vital Signs Vital signs: Vital Signs Temperature 98.1 F 03/03/24 11:17 Pulse Rate 80 03/03/24 11:17 Respiratory Rate 18 03/03/24 11:17 Blood Pressure 107/73 03/03/24 11:17 Pulse Oximetry 99 03/03/24 11:17 Oxygen Delivery Method Room Air 03/03/24 11:17 Temperature 98.1 F 03/03/24 11:17 Pulse Rate 80 03/03/24 11:17 Respiratory Rate 18 03/03/24 11:17 Blood Pressure 107/73 03/03/24 11:17 Pulse Oximetry 99 03/03/24 11:17 Oxygen Delivery Method Room Air 03/03/24 11:17 MDM - Chest Pain MDM Narrative Medical decision making narrative: The patient EKG showing sinus rhythm with a heart rate of [address] elevation or depression The patient had a CBC chemistry as well as D-dimer ordered test is not ordered at the patient just had miscarriage few days ago Discharge Plan Discharge Patient Disposition: Still a Patient
[2024-03-03 11:51] LABS: Basophils Absolute Auto 0.1 10^3/uL (0.0-0.1); Basophils Percent Auto 0.7 % (0.2-2.0); Eosinophils Absolute Auto 0.1 10^3/uL (0.0-0.7); Eosinophils Percent Auto 1.6 % (0.9-7.0); Hematocrit 27.5 % (36.0-48.0); Hemoglobin 8.9 g/dL (12.0-16.0); Immature Granulocytes Abs Auto 0.03 10^3/uL (0.00-0.03); Immature Granulocytes Pct Auto 0.4 % (0.0-0.5); Lymphocytes Absolute Auto 3.1 10^3/uL (1.2-3.8); Lymphocytes Percent Auto 40.7 % (20.5-60.0); Mean Corpuscular HGB Conc 32.4 g/dL (29.9-35.2); Mean Corpuscular Hemoglobin 29.9 pg (26.7-34.0); Mean Corpuscular Volume 92.3 fL (81.0-99.0); Mean Platelet Volume 9.5 fL (9.5-13.5); Monocytes Absolute Auto 0.4 10^3/uL (0.3-0.8); Monocytes Percent Auto 5.8 % (1.7-12.0); Neutrophils Absolute Auto 3.9 10^3/uL (1.4-6.5); Neutrophils Percent Auto 50.8 % (43.0-75.0); Platelet Count 284 10^3/uL (150-450); Red Blood Count 2.98 10^6/uL (4.20-5.40); Red Cell Distribution Width 14.2 % (11.0-15.0); White Blood Count 7.7 10^3/uL (4.0-11.0)
[2024-03-03 12:16] LABS: D Dimer 1.03 mg/L FEU (<=0.59)
[2024-03-03 12:17] LABS: Alanine Aminotransferase 35 U/L (14-59); Alkaline Phosphatase 57 U/L (46-116); Anion Gap 9.4; Aspartate Amino Transferase 19 U/L (15-37); BUN Creatinine Ratio 15.3; Bilirubin Total 0.3 mg/dL (0.2-1.0); Calcium 8.4 mg/dL (8.5-10.1); Carbon Dioxide 28.3 mmol/L (21.0-32.0); Chloride 103 mmol/L (98-107); Estimated GFR (African America >60 (>=60); Estimated GFR (Non-African Ame >60 (>=60); Globulin 3.1 g/dL; Glucose 81 mg/dL (74-106); Potassium 3.7 mmol/L (3.5-5.1); Sodium 137 mmol/L (136-145); Total Protein 6.1 g/dL (6.4-8.2); Troponin I High Sensitivity <4.0 pg/mL (4.0-51.3)
--- NOTE | 2024-03-03 12:24 | CT_ITS ---
The [address] [address] Patient Name: MAYELIN TAYLOR MRN: [id number] date: 2000 Sex: F Assigned Patient Location: ER Current Patient Location: ER Accession/Order Number: [id number] Exam Date: 03/03/2024 13:23 Report Date: 03/03/2024 13:58 At the request of: SHANNON ROMANO Procedure: CT angio chest EXAM: CT pulmonary angiogram of the chest using 98 mL of IV iodinated contrast. 3-D imaging was performed. Dose reduction technique used: Automated exposure control and/or adjustment of the mA and/or kV according to patient size and/or use of iterative reconstruction technique. REASON FOR EXAM: dimer elevated COMPARISON: None FINDINGS: No pulmonary emboli. No aortic dissection. No pneumothorax. No acute airspace opacities. No acute fractures. No concerning pulmonary nodules. No definite lymphadenopathy in the chest. Trace bilateral pleural effusions. Remainder unremarkable. CT/CT angio chest IMPRESSION: No pulmonary embolism or acute abnormalities in chest. Electronically authenticated by: ANDRE VELIZ Date: 03/03/2024 13:58
== END 2024-03-03 14:38 | disposition home or self-care (01) ==
PROVIDERS: Emergency Medicine; Emergency Provider Emergency Medicine
DX: D64.9 Anemia, unspecified (principal)
CPT/HCPCS: 36415; 71275; 80053; 84484; 85025; 85378; 93005; 99285; Q9967

== ENCOUNTER 2024-11-23 09:06 | Emergency (ER) | payer MEDICAID, SELFPAY ==
[2024-11-23 09:17] VITALS: BP 99/73; PULSE 74; TEMP 36.9; O2SAT 100; BMI 31.9
--- OUTSIDE RECORDS SUMMARY | 2024-11-23 09:23 | XMS_ITS | CCD ---
Author Organization [facility] Care Team Providers Care Wind Instrument Repairer Name Role Phone MELISSA HERNANDEZ Referring Unavail able ANISHA GEORGE Admitting Unavailable ANISHA GEORGE Attending Unavailable PHYSICIAN, UNKNOWN Referring Unavailable PCP, NOT IN SYSTEM Primary Care Unavailable QUINN ZAVALETA Consulting Unavailable LINDSEY HAWKINS I Consulting Unavailable ZAIRA BEAN Consulting Unavailable ACE SERNA Attending Unavailable PCP, NOT IN SYSTEM Primary Care Unavailable MOISÉS DIALLO Referring Unavailable PCP, NOT IN SYSTEM Primary Care Unavailable Le Scott K Attending Unavailable Le, Scott K Admitting Unavailable Provider, None Primary Care Unavailable PCP, NOT IN SYSTEM Primary Care Unavailable PCP, NOT IN SYSTEM Primary Care Unavailable PCP, NOT IN SYSTEM Primary Care Unavailable PCP, NOT IN SYSTEM Primary Care Unavailable GABRIEL BOOKER Attending Unavailable [place]YES Referring Unavailable PCP, NOT IN SYSTEM Primary Care Unavailable ZACH TOMI M Attending Unavailable GABRIEL BOOKER Referring Unavailable PCP, NOT IN SYSTEM Primary Care Unavailable ZACH TOMI M Admitting Unavailable ZACH TOMI M Attending Unavailable ZACH TOMI M Referring Unavailable PCP, NOT IN SYSTEM Primary Care Unavailable YAMEL JAY Attending Unavailable PCP, NOT IN SYSTEM Primary Care Unavailable Unavailable Primary Care Provider Unavailabl e RANJITH KIRBY Attending Unavailable KIRBY, RANJITH Referring Unavailable PCP, NOT IN SYSTEM Primary Care Unavailable RANJITH KIRBY Attending Unavailable RANJITH KIRBY Referring Unavailable PCP, NOT IN SYSTEM Primary Care Unavailable AILYN GARCIA Attending Unavailable AILYN GARCIA Referring Unavailable PCP, NOT IN SYSTEM Primary Care Unavailable JAREK WILKES Referring Unavailable GIL DEWEY Primary Care Unavailable PCP, NOT IN SYSTEM Primary Care Unavailable JONATHAN LEMA Attending Unavailable PCP, NOT IN SYSTEM Primary Care Unavailable GABRIEL BOOKER Referring Unavailable PCP, NOT IN SYSTEM Primary Care Unavailable GABRIEL BOOKER Referring Unavailable PCP, NOT IN SYSTEM Primary Care Unavailable PCP, NOT IN SYSTEM Primary Care Unavailable AILYN GARCIA Attending Unavailable SKY GUERRA Attending Unavailable SKY GUERRA Referring Unavailable PCP, NOT IN SYSTEM Primary Care Unavailable KRISTEL ALFARO Attending Unavailable PCP, NOT IN SYSTEM Primary Care Unavailable Allergies Allergy Classification Reported Allergen(s) Allergy Type Date of Onset Reaction(s) Facility (5 sources) peanut allergenic extract; Translations: [PEANUT] Drug Allergy 2 [facility] Repository (1 source) Peanut-Containin g Drug Products Propensity to adverse reactions to drug 2 Rash [facility] Problems Active Problems Problem Classification Problem Date Documented Date Episodic/Chronic Abdominal pain (7 sources) Generalized abdominal pain; Translations: [Epigastric pain] Onset: 01-03-2024 Episodic Administrative/social admission (2 sources) Persons encountering health services in other specified circumstances; Translations: [Persons encountering health services in other specified circumstances] Onset: 03-01-2024 Episodic Biliary tract disease (3 sources) Cholesterolosis of gallbladder; Translations: [Calculus of gallbladder without cholecystitis without obstruction] Onset: 04-05-2024 Episodic Menstrual disorders (3 sources) Amenorrhea, unspecified; Translations: [Amenorrhea] Onset: 02-04-2024 02-04-2024 Chronic Mood disorders (1 source) Severe major depression, single episode, without psychotic features; Translations: [Major depressive disorder, single episode, severe without psychotic features] Onset: 10-08-2023 02-04-2024 Chronic Other complications of (2 sources) Missed ; Translations: [Missed ] Onset: 02-29-2024 Episodic Other nervous system disorders (1 source) Other acute postprocedural pain; Translations: [Other acute postprocedural pain] Onset: 04-13-2024 Episodic Residual codes; unclassified (1 source) Less than 8 weeks gestation of ; Translations: [Less than 8 weeks gestation of ] Onset: 02-04-2024 Episodic Residual codes; unclassified (1 source) Pain, unspecified; Translations: [Pain, unspecified] Onset: 03-01-2024 Episodic Syncope (2 sources) Syncope and collapse; Translations: [Syncope] Onset: 02-29-2024 Episodic Thyroid disorders (3 sources) Hypothyroidism, unspecified; Translations: [Hypothyroidism, unspecified] Onset: 03-01-2024 Chronic Unclassified (1 source) New Patient Onset: 03-15-2024 Unclassified (1 source) Cholelithiasis Onset: 04-05-2024 Past or Other Problems Problem Classification Problem Date Documented Da te Episodic/Chronic Nonspecific chest pain (2 sources) Chest pain, unspecified; Translations: [Chest pain] Onset: 03-14-2024 Episodic Nutritional deficiencies (2 sources) Deficiency of other specified B group vitamins; Translations: [Deficiency of other specified B group vitamins] Onset: 03-15-2024 Episodic Other and delivery including normal (3 sources) Encounter for supervision of other normal , first trimester; Translations: [Normal ] Onset: 01-03-2024 02-04-2024 Episodic Residual codes; unclassified (1 source) Gestation period, 6 weeks; Translations: [Less than 8 weeks gestation of ] 02-04-2024 Episodic Results Test Name Value Interpretation Reference Range Facil ity HCG.beta subunit IA 3rd IS Q non 11-19-2024 SERUM B HCG,3RD I.S. <5 Normal [facility] Comment on above: Result Comment: NEW REFERENCE RANGE WEEKS (SINCE LMP) MIU/mL 3 WEEKS 5 - 50 4 WEEKS 5 - 426 5 WEEKS 18 - 7,340 6 WEEKS 1,080 - 56,500 7-8 WEEKS 7,650 - 229,000 9-12 WEEKS 25,700 - 288,000 13-16 WEEKS 13,300 - 254,000 17-24 WEEKS 4,060 - 165,400 25-40 WEEKS 3,640 - 117,000 MALES AND NON- FEMALES - <5 MIU/mL This test has been FDA approved for use in only. Elevated levels are not necessarily diagnostic for trophoblastic or nontrophoblastic neoplasms. Performed By: #### C MINNIE, CMP, 53175-4 #### [facility] ([id number]) [address] [place] [address] 82614 CBC AND AUTO DIFFon 11-01-19 ABSOLUTE BASOPHIL 0.1 X10E9/L Normal 0.0-0.2 [facility] Comment on above: Performed By: #### Isabel HARTMAN CMP, #### [facility] ([id number]) [address] [place] [address] 75755 ABSOLUTE NEUTROPHIL 3.5 X10E9/L Normal 1.5-6.6 [facility] Comment on above: Performed By: #### Isabel HARTMAN [facility], #### [facility] ([id number]) [address] [place] [address] 71856 Basophils/100 WBC (Bld) 0.8 % Normal [facility] Comment on above: Performed By: #### Isabel HARTMAN [facility], #### [facility] ([id number]) [address] [place] [address] 63136 Eosinophils (Bld) [#/Vol] 0.1 10*3/uL Normal 0.0-0.4 [facility] Comment on above: Performed By: #### Isabel HARTMAN [facility], #### [facility] ([id number]) [address] [place] [address] 80558 Eosinophils/100 WBC (Bld) 1.7 % Normal [facility] Comment on above: Performed By: #### Isabel HARTMAN [facility], #### [facility] ([id number]) [address] [place] [address] 55648 Erythrocyte distribution width (RBC) [Ratio] 14.4 % Normal 11.5-15.0 [facility] Comment on above: Performed By: #### Isabel HARTMAN CMP, #### [facility] ([id number]) [address] [place] [address] 25745 Hematocrit (Bld) [Volume fraction] 35.7 % Normal 35-47 [facility] Comment on above: Performed By: #### C MONALISA HARTMAN, #### [facility] ([id number]) [address] [place] [address] 41942 Hemoglobin (Bld) [Mass/Vol] 11.9 g/dL Normal 11.7-15.5 [facility] Comment on above: Performed By: #### Isabel HARTMAN CMP, #### [facility] ([id number]) [address] [place] [address] 72355 Lymphocytes (Bld) [#/Vol] 3.2 10*3/uL Normal 1.0-3.5 [facility] Comment on above: Performed By: #### Isabel HARTMAN CMP, #### [facility] ([id number]) [address] [place] [address] 39173 Lymphocytes/100 WBC (Bld) 43.6 % Normal [facility] Comment on above: Performed By: #### Isabel HARTMAN CMP, #### [facility] ([id number]) [address] [place] [address] 69549 MCH (RBC) [Entitic mass] 28.7 pg Normal 27-34 [facility] Comment on above: Performed By: #### Isabel HARTMAN CMP, #### [facility] ([id number]) [address] [place] [address] 76224 MCHC (RBC) [Mass/Vol] 33.5 g/dL Normal 32-36 [facility] Comment on above: Performed By: #### Isabel HARTMAN CMP, #### [facility] ([id number]) [address] [place] [address] 94226 MCV (RBC) [Entitic vol] 86 fL Normal 80-100 [facility] Comment on above: Performed By: #### C MINNIE, CMP, #### [facility] ([id number]) [address] [place] [address] 69868 Monocytes (Bld) [#/Vol] 0.4 10*3/uL Normal 0-0.9 [facility] Comment on above: Performed By: #### Isabel HARTMAN, CMP, #### [facility] ([id number]) [address] [place] [address] 28953 Monocytes/100 WBC (Bld) 6.2 % Normal [facility] Comment on above: Performed By: #### Isabel HARTMAN, CMP, #### [facility] ([id number]) [address] [place] [address] 44515 Neutrophils/100 WBC (Bld) 47.7 % Normal [facility] Comment on above: Performed By: #### Isabel BCA, CMP, #### [facility] ([id number]) [address] [place] [address] 02706 Platelet mean volume (Bld) [Entitic vol] 8.5 fL Normal 7-12 [facility] Comment on above: Performed By: #### Isabel HARTMAN, CMP, #### [facility] ([id number]) [address] [place] [address] 18664 Platelets (Bld) [#/Vol] 325 10*3/uL Normal 150-450 [facility] Comment on above: Performed By: #### Isabel HARTMAN, CMP, #### [facility] ([id number]) [address] [place] [address] 50361 RBC COUNT 4.16 X10E12/L Normal 3.80-5.20 [facility] Comment on above: Performed By: #### Isabel HARTMAN, CMP, #### [facility] ([id number]) [address] [place] [address] 82247 WBC (Bld) [#/Vol] 7.3 10*3/uL Normal 4.0-11.0 [facility] Comment on above: Performed By: #### C BCA, CMP, #### [facility] ([id number]) [address] [place] [address] 42470 COMPREHENSIVE METABOLIC PANE Dylan 10-31-2024 Albumin [Mass/Vol] 4.0 g/dL Normal 3.2-5.3 [facility] Comment on above: Performed By: #### C MINNIE, CMP, #### [facility] ([id number]) [address] [place] [address] 80848 ALP [Catalytic activity/Vol] 76 U/L Normal 39-130 [facility] Comment on above: Performed By: #### C BCA, CMP, #### [facility] ([id number]) [address] [place] [address] 32388 ALT [Catalytic activity/Vol] 25 U/L Normal 0-31 [facility] Comment on above: Performed By: #### C BCA, CMP, #### [facility] ([id number]) [address] [place] [address] 76652 Anion gap [Moles/Vol] 7 mmol/L Normal 5-15 [facility] Comment on above: Performed By: #### C BCA, CMP, #### [facility] ([id number]) [address] [place] [address] 94290 AST [Catalytic activity/Vol] 29 U/L Normal 0-41 [facility] Comment on above: Performed By: #### C BCA, CMP, #### [facility] ([id number]) [address] [place] [address] Bilirubin [Mass/Vol] 0.3 mg/dL Normal 0.3-1.2 [facility] Comment on above: Performed By: #### C MONALISA HARTMAN, #### [facility] ([id number]) [address] [place] [address] 94558 Calcium [Mass/Vol] 8.8 mg/dL Normal 8.5-10.5 [facility] Comment on above: Performed By: #### C MONALISA HARTMAN, #### [facility] ([id number]) [address] [place] [address] 36035 Chloride [Moles/Vol] 106 mmol/L Normal 98-109 [facility] Comment on above: Performed By: #### C MONALISA HARTMAN, #### [facility] ([id number]) [address] [place] [address] 51832 CO2 [Moles/Vol] 25 mmol/L Normal 22-32 [facility] Comment on above: Performed By: #### C MONALISA HARTMAN, #### [facility] ([id number]) [address] [place] [address] 48148 Creatinine [Mass/Vol] 0.55 mg/dL Normal 0.40-1.00 [facility] Comment on above: Result Comment: METH OD TRACEABLE TO IDMS STANDARD Performed By: #### C MONALISA HARTMAN, #### [facility] ([id number]) [address] [place] [address] [place] [address] eGFR (CKD-EPI) NON-RACE DEPENDENT >90 Normal >59 [facility] Comment on above: Result Comment: Reported eGFR is based on the CKD-EPI 2020 equation that does not use a race coefficient. Performed By: #### C MONALISA HARTMAN, #### [facility] ([id number]) [address] [place] [address] 42195 Glucose [Mass/Vol] 97 mg/dL Normal 65-99 [facility] Comment on above: Performed By: #### C MONALISA HARTMAN, #### [facility] ([id number]) [address] [place] [address] 62198 Potassium [Moles/Vol] 3.9 mmol/L Normal 3.5-5.0 [facility] Comment on above: Performed By: #### C MONALISA HARTMAN, #### [facility] ([id number]) [address] [place] [address] 16756 Protein [Mass/Vol] 7.2 g/dL Normal 6.0-8.0 [facility] Comment on above: Performed By: #### C MONALISA HARTMAN, #### [facility] ([id number]) [address] [place] [address] 00286 Sodium [Moles/Vol] 138 mmol/L Normal 134-146 [facility] Comment on above: Performed By: #### C MONALISA HARTMAN, #### [facility] ([id number]) [address] [place] [address] 30948 Urea nitrogen [Mass/Vol] 10 mg/dL Normal 5-23 [facility] Comment on above: Performed By: #### C MONALISA HARTMAN, #### [facility] ([id number]) [address] [place] [address] 42925 HCG ( test) Ql (U)o n 10-31-2024 Beta HCG ( test) Ql (U) Negative Normal NEG [facility] Comment on above: Performed By: #### C MINNIE CMP, #### [facility] ([id number]) [address] [place] [address] 77764 LIPASEon 10-31-2024 Lipase [Catalytic activity/Vol] 36 U/L Normal 17-40 [facility] Comment on above: Performed By: #### C MINNIE CMP, #### [facility] ([id number]) [address] [place] [address], [place] [address] URN MACROSCOPIC NURon 2024 BILIRUBIN VICKI Negative Normal NEG [facility] Comment on above: Performed By: #### C MINNIE CMP, #### [facility] ([id number]) [address] [place] [address] [place] [address] BLOOD/HGB VICKI Negative Normal NEG [facility] Comment on above: Performed By: #### C MINNIE CMP, #### [facility] ([id number]) [address] [place] [address], [place] [address] GLUCOSE VICKI Negative Normal NEG [facility] Comment on above: Performed By: #### Isabel HARTMAN CMP, #### [facility] ([id number]) [address] [place] [address], [place] [address] KETONES VICKI Negative Normal NEG [facility] Comment on above: Performed By: #### Isabel HARTMAN CMP, #### [facility] ([id number]) [address] [place] [address], [place] [address] LEUKOCYTE ESTERASE VICKI Negative Normal NEG [facility] Comment on above: Performed By: #### Isabel HARTMAN CMP, #### [facility] ([id number]) [address] [place] [address], [place] [address] NITRITE VICKI Negative Normal NEG [facility] Comment on above: Performed By: #### Isabel HARTMAN, CMP, #### [facility] ([id number]) [address] [place] [address] [place] [address] PH VICKI 5.5 Normal 5.0-8.5 [facility] Comment on above: Performed By: #### Isabel HARTMAN CMP, #### [facility] ([id number]) [address] [place] [address] PROTEIN VICKI Trace Abnormal NEG [facility] Comment on above: Performed By: #### C BCA, [facility], #### [facility] ([id number]) [address] [place] [address] 33052 SPECIFIC GRAVITY VICKI >=1.030 Normal 1.003-1.035 [facility] Comment on above: Performed By: #### C BCA, [facility], 75336-5 #### [facility] ([id number]) [address] [place] [address] 79296 UROBILINOGEN VICKI 0.2 eu/dL Normal <1.1 [facility] Comment on above: Performed By: #### C MINNIE, [facility], 19843-3 #### [facility] ([id number]) [address] [place] [address] 76767 HCG ( test) Ql (U)o n 04-13-2024 Beta HCG ( test) Ql (U) Negative Normal NEG [facility] Comment on above: Performed By: #### 2 106-3 #### [facility] ([id number]) [address] [place] [address] Surgical Pathologyon 024 Surgical Pathology Normal [facility] Comment on above: Result Comment: [facility] [address] [place] [address] Surgical Pathology Consultation Patient Name:JOSÉ MIGUEL TAYLORB:2000 (Age: 23)Gender:FTaken:4Reported:4Physician(s):TOMI SERRANO ([id number])Copy To: Rec. #:[id number]: #[id number] Final Pathologic Diagnosis Gallbladder, cholecystectomy: Chronic cholecystitis and cholelithiasis. Report Electronically Signed Out cjb/04/19/2024vimal Rendon MD Interpretation performed at [facility], [address] [place] [address], License number: [id number]. Clinical History Calculus of gallbladder without cholecystitis without obstruction K80.20. Gallbladder polyp K82.4. Gross Description Received in formalin labeled TAYLOR, gallbladder is an intact gallbladder that measures, 7.4 x 2.9 x 2.5 cm with a cystic duct of 0.2 cm. No lymph node is identified adjacent to the cystic duct. The serosal surface is green-olivares with an area of green-olivares granular soft tissue consistent with hepatic bed. The gallbladder is opened and filled with green tenacious bile. Yellow granular calculi are identified within the lumen, 0.2-1.7 cm. The mucosa is green and velvety with yellow striations. The gallbladder wall is 0.1-0.2 cm in thickness. Marine Equipment Test Engineer cross-sections are submitted within a single cassette. (1, ss, [id number],m2) DM. dm/04/14/2024GR Specimen(s) Received Gallbladder Fee Codes(s): 1; 36786 US ABDOMEN LMTDon 03-24-2024 US ABDOMEN LMTD US ABDOMEN LMTD US ABDOMEN LMTD HISTORY: Generalized postprandial abdominal pain COMPARISON: None TECHNIQUE: Multiple real-time grayscale images were obtained in transverse and sagittal projections of the right upper quadrant. Color Doppler was used. FINDINGS: Visualized portions of liver are homogenous in echotexture without demonstrated focal lesion. No intrahepatic biliary dilatation. The common duct is not dilated and measures 0.3 cm. Echogenic focus with posterior acoustic shadowing and twinkling artifact in the gallbladder neck measuring 1.5 cm. Multiple echogenic, nonmobile bowel, non-shadowing foci projecting into the gallbladder lumen from the gallbladder wall measuring up to 2 mm. No gallbladder wall thickening or pericholecystic fluid demonstrated. Technologist reports negative sonographic Hankins's sign. The gallbladder wall measures 0.2 cm. Pancreas difficult to visualize secondary to overlying bowel gas. Provided images of the right kidney show no abnormalities. IMPRESSION: * Cholelithiasis without sonographic evidence of acute cholecystitis. If clinical concern for acute cholecystitis, consider HIDA scan. * Multiple tiny gallbladder polyps. Approved by Resident Rolanda Hopper DO on 03/24/2024 10:30 AM Johnny Tobar MD have personally reviewed the image(s) and agree with and/or edited the report Finalized by Johnny Alatorre MD on 03/24/2024 10:48 AM Normal [facility] FREE T4on 03-22-2024 Free T4 [Mass/Vol] 0.77 ng/dL Normal 0.61-1.60 [facility] Comment on above: Performed By: #### C MINNIE [facility], 05828-0 #### [facility] ([id number]) [address] [place] [address] 30171 TSH Qnon 03-22-2024 TSH 7.04 uIU/mL High 0.49-4.67 [facility] Comment on above: Performed By: #### C MINNIE [facility], #### [facility] ([id number]) [address] [place] [address] 19001 VITAMIN B12on 03-22-2024 Cobalamin (Vitamin B12) [Mass/Vol] 207 pg/mL Normal 180-914 [facility] Comment on above: Performed By: #### C MINNIE [facility], 92224-1 #### [facility] ([id number]) [address] [place] [address] CTA CHESTon 03-15-[address] CTA CHEST CTA CHEST HISTORY: Chest pain, pulmonary embolism suspected. COMPARISON: CT earlier same day TECHNIQUE: Multidetector CT Angiogram performed with 100 mL of Omnipaque 350 IV contrast. Images obtained through the Chest including 3 -D Maximum intensity projection reconstructions constructed under concurrent physician supervision on a independent workstation. 3 D images obtained to improve visualization of vascular detail. Automatic exposure control (AEC) was utilized. 3D reformatted images confirm the source data findings. All CT scans at this facility use dose modulation, iterative reconstruction, and/or weight based dosing when appropriate to reduce radiation dose to as low as reasonably achievable. FINDINGS: Lower neck: Visible thyroid unremarkable Lymph nodes: No supraclavicular, axillary, mediastinal adenopathy. Chest wall/Osseous structures: Vertebral body heights and alignment maintained. Upper abdomen: No acute findings in the visualized upper abdomen. Heart and Aorta: Heart is not enlarged. No pericardial effusion. No significant coronary artery calcifications. Thoracic aorta is nonaneurysmal. Lung: Central airways patent. No pneumothorax or pleural effusion. No focal airspace disease. Pulmonary artery: No filling defect in the main portal trunk, lobar, or segmental branches to suggest pulmonary embolism. IMPRESSION: * No acute cardiopulmonary process. No pulmonary embolism. Approved by Resident Donte Forbes DO on 03/14/2024 11:55 PM I, Alan Dyer MD have personally reviewed the image(s) and agree with and/or edited the report Finalized by Alan Dyer MD on 03/15/2024 12:01 AM Normal [facility] CBC AND AUTO DIFFon 03-14-20 24 ABSOLUTE BASOPHIL 0.0 X10E9/L Normal 0.0-0.2 [facility] Comment on above: Performed By: #### 2 0415-6, 43018-2, PINR, CMP, 60627-6, 86295-4, 86868-3, CBCA #### [facility] ([id number]) [address] [place] [address] 16510 ABSOLUTE NEUTROPHIL 4.4 X10E9/L Normal 1.5-6.6 [facility] Comment on above: Performed By: #### 2 0415-6, 85011-4, PINR, CMP, 59036-9, 64353-4, 00353-1, CBCA #### [facility] ([id number]) [address] [place] [address] 70715 Basophils/100 WBC (Bld) 0.5 % Normal [facility] Comment on above: Performed By: #### 2 0415-6, 41315-5, PINR, CMP, 48300-6, 91030-1, 54100-9, CBCA #### [facility] ([id number]) [address] [place] [address] 45157 Eosinophils (Bld) [#/Vol] 0.1 10*3/uL Normal 0.0-0.4 [facility] Comment on above: Performed By: #### 2 0415-6, 37544-6, PINR, CMP, 96744-5, 05347-2, 63445-0, CBCA #### [facility] ([id number]) [address] [place] [address] 74998 Eosinophils/100 WBC (Bld) 1.2 % Normal [facility] Comment on above: Performed By: #### 2 0415-6, 75067-0, PINR, CMP, 16523-7, 13953-4, 07601-8, CBCA #### [facility] ([id number]) [address] [place] [address] 25413 Erythrocyte distribution width (RBC) [Ratio] 13.8 % Normal 11.5-15.0 [facility] Comment on above: Performed By: #### 2 0415-6, 93340-0, PINR, CMP, 38349-2, 63618-7, 19511-0, CBCA #### [facility] ([id number]) [address] [place] [address] 27712 Hematocrit (Bld) [Volume fraction] 28.6 % Low 35-47 [facility] Comment on above: Performed By: #### 2 0415-6, 08865-8, PINR, CMP, 96492-3, 00139-0, 68467-4, CBCA #### [facility] ([id number]) [address] [place] [address] 99542 Hemoglobin (Bld) [Mass/Vol] 9.5 g/dL Low 11.7-15.5 [facility] Comment on above: Performed By: #### 2 0415-6, 17035-0, PINR, CMP, 79503-6, 38322-3, 08183-9, CBCA #### [facility] ([id number]) [address] [place] [address] 74002 Lymphocytes (Bld) [#/Vol] 2.1 10*3/uL Normal 1.0-3.5 [facility] Comment on above: Performed By: #### 2 0415-6, 46257-5, PINR, CMP, 31677-3, 39327-5, 98190-8, CBCA #### [facility] ([id number]) [address] [place] [address] 53725 Lymphocytes/100 WBC (Bld) 30.1 % Normal [facility] Comment on above: Performed By: #### 2 0415-6, 93325-9, PINR, CMP, 28365-1, 05830-2, 39054-3, CBCA #### [facility] ([id number]) [address] [place] [address] 33948 MCH (RBC) [Entitic mass] 29.5 pg Normal 27-34 [facility] Comment on above: Performed By: #### 2 0415-6, 21502-4, PINR, CMP, 15680-5, 53450-1, 66267-5, CBCA #### [facility] ([id number]) [address] [place] [address] 30406 MCHC (RBC) [Mass/Vol] 33.4 g/dL Normal 32-36 [facility] Comment on above: Performed By: #### 2 0415-6, 46995-6, PINR, CMP, 18990-6, 20114-7, 90846-0, CBCA #### [facility] ([id number]) [address] [place] [address] 02409 MCV (RBC) [Entitic vol] 89 fL Normal 80-100 [facility] Comment on above: Performed By: #### 2 0415-6, 36079-0, PINR, CMP, 08449-0, 71937-6, 71549-6, CBCA #### [facility] ([id number]) [address] [place] [address] 15655 Monocytes (Bld) [#/Vol] 0.4 10*3/uL Normal 0-0.9 [facility] Comment on above: Performed By: #### 2 0415-6, 38569-1, PINR, CMP, 97502-5, 88258-2, 73190-7, CBCA #### [facility] ([id number]) [address] [place] [address] 16458 Monocytes/100 WBC (Bld) 5.1 % Normal [facility] Comment on above: Performed By: #### 2 0415-6, 05402-9, PINR, CMP, 76986-5, 23029-6, 14803-6, CBCA #### [facility] ([id number]) [address] [place] [address] 53277 Neutrophils/100 WBC (Bld) 63.1 % Normal [facility] Comment on above: Performed By: #### 2 0415-6, 59138-7, PINR, CMP, 45227-7, 84152-1, 58389-2, CBCA #### [facility] ([id number]) [address] [place] [address] 18602 Platelet mean volume (Bld) [Entitic vol] 8.1 fL Normal 7-12 [facility] Comment on above: Performed By: #### 2 0415-6, 36456-0, PINR, CMP, 40293-6, 16661-7, 23329-8, CBCA #### [facility] ([id number]) [address] [place] [address] 65666 Platelets (Bld) [#/Vol] 349 10*3/uL Normal 150-450 [facility] Comment on above: Performed By: #### 2 0415-6, 67733-9, PINR, CMP, 07377-1, 21626-2, 13766-4, CBCA #### [facility] ([id number]) [address] [place] [address] 69142 RBC COUNT 3.23 X10E12/L Low 3.80-5.20 [facility] Comment on above: Performed By: #### 2 0415-6, 93933-5, PINR, CMP, 86235-2, 70072-3, 99414-7, CBCA #### [facility] ([id number]) [address] [place] [address] 77194 WBC (Bld) [#/Vol] 6.9 10*3/uL Normal 4.0-11.0 [facility] Comment on above: Performed By: #### 2 0415-6, 30144-4, PINR, CMP, 94041-8, 53931-5, 53936-5, CBCA #### [facility] ([id number]) [address] [place] [address] 94029 COMPREHENSIVE METABOLIC PANE Dylan 03-14-2024 Albumin [Mass/Vol] 3.6 g/dL Normal 3.2-5.3 [facility] Comment on above: Performed By: #### 2 106-3 #### [facility] ([id number]) [address] [place] [address] 37268 ALP [Catalytic activity/Vol] 61 U/L Normal 39-130 [facility] Comment on above: Performed By: #### 2 106-3 #### [facility] ([id number]) [address] [place] [address] 44168 ALT [Catalytic activity/Vol] 21 U/L Normal 0-31 [facility] Comment on above: Performed By: #### 2 106-3 #### [facility] ([id number]) [address] [place] [address] 48449 Anion gap [Moles/Vol] 6 mmol/L Normal 5-15 [facility] Comment on above: Performed By: #### 2 106-3 #### [facility] ([id number]) [address] [place] [address] 44002 AST [Catalytic activity/Vol] 21 U/L Normal 0-41 [facility] Comment on above: Performed By: #### 2 106-3 #### [facility] ([id number]) [address] [place] [address] 01025 Bilirubin [Mass/Vol] 0.4 mg/dL Normal 0.3-1.2 [facility] Comment on above: Performed By: #### 2 106-3 #### [facility] ([id number]) [address] [place] [address] 20035 Calcium [Mass/Vol] 8.5 mg/dL Normal 8.5-10.5 [facility] Comment on above: Performed By: #### 2 106-3 #### [facility] ([id number]) [address] [place] [address] 53809 Chloride [Moles/Vol] 107 mmol/L Normal 98-109 [facility] Comment on above: Performed By: #### 2 106-3 #### [facility] ([id number]) [address] [place] [address] 73315 CO2 [Moles/Vol] 24 mmol/L Normal 22-32 [facility] Comment on above: Performed By: #### 2 106-3 #### [facility] ([id number]) [address] [place] [address] 33310 Creatinine [Mass/Vol] 0.67 mg/dL Normal 0.40-1.00 [facility] Comment on above: Result Comment: METH OD TRACEABLE TO IDMS STANDARD Performed By: #### 2 106-3 #### [facility] ([id number]) [address] [place] [address] 22531 eGFR (CKD-EPI) NON-RACE DEPENDENT >90 Normal >59 [facility] Comment on above: Result Comment: Reported eGFR is based on the CKD-EPI 2020 equation that does not use a race coefficient. Performed By: #### 2 106-3 #### [facility] ([id number]) [address] [place] [address] 18426 Glucose [Mass/Vol] 116 mg/dL High 65-99 [facility] Comment on above: Performed By: #### 2 106-3 #### [facility] ([id number]) [address] [place] [address] 04541 Potassium [Moles/Vol] 3.4 mmol/L Low 3.5-5.0 [facility] Comment on above: Performed By: #### 2 106-3 #### [facility] ([id number]) [address] [place] [address] 95309 Protein [Mass/Vol] 6.6 g/dL Normal 6.0-8.0 [facility] Comment on above: Performed By: #### 2 106-3 #### [facility] ([id number]) [address] [place] [address] 83625 Sodium [Moles/Vol] 137 mmol/L Normal 134-146 [facility] Comment on above: Performed By: #### 2 106-3 #### [facility] ([id number]) [address] [place] [address] 42810 Urea nitrogen [Mass/Vol] 9 mg/dL Normal 5-23 [facility] Comment on above: Performed By: #### 2 106-3 #### [facility] ([id number]) [address] [place] [address] CTA CHESTon 03-14-[address] CTA CHEST STUDY: CT angiography of the chest with contrast CLINICAL HISTORY: High pretest probability for pulmonary embolus. COMPARISON: None. TECHNIQUE: CT angiography of the chest was performed utilizing thin section axial images with coronal and sagittal reformatted images generated. 3-D maximum intensity projection coronal and sagittal reformatted images generated and reviewed. Images acquired following the uneventful administration of 100 cc Omnipaque 350 nonionic intravenous contrast. Automated exposure control was utilized. FINDINGS: Motion degraded exam, findings may be obscured. No pulmonary embolus to the lobar level. Dependent atelectasis. No pneumothorax or pleural effusion. Nonenlarged heart. No acute aortic pathology. Patent great vessels. No acute findings visualized upper abdomen. No aggressive osseous lesions. IMPRESSION: 1. Significantly motion degraded exam, confirmation and assessment. No pulmonary embolus to the lobar level. All CT scans at this facility use dose modulation, iterative reconstruction, and/or weight based dosing when appropriate to reduce radiation dose to as low as reasonably achievable. Finalized by Polo Duran MD on 03/14/2024 9:57 PM Normal [facility] Fibrin D-dimer DDU (PPP) [Ma ss/Vol]on 03-14-2024 D DIMER 281 ng/mL DDU High <255 [facility] Comment on above: Result Comment: Results >=255ng/mL DDU: Results may be indicative of the presence of VTE. The use of the Wells score and further diagnostic tests should be considered. Elevated D-Dimer levels can also be associated with DIC, neoplasm, , trauma and liver disease. Elevated levels of rheumatoid factor may lead to an overestimation of the D-Dimer level. Performed By: #### 2 0415-6, 53676-5, PINR, CMP, 67781-4, 50891-2, 45565-0, CBCA #### [facility] ([id number]) [address] [place] [address] HCG ( test) IAjeremiah bradshaw Ql (S)on 03-14-2024 SERUM Positive Abnormal NEG [facility] Comment on above: Performed By: #### 2 106-3 #### [facility] ([id number]) [address] [place] [address] 38339 HCG ( test) Ql (U)o n 03-14-2024 Beta HCG ( test) Ql (U) Indeterminate: Repeat in 48-72 hrs Abnormal NEG [facility] Comment on above: Performed By: #### 2 106-3 #### [facility] ([id number]) [address] [place] [address] 86418 HCG.beta subunit IA 3rd IS Q non 03-14-2024 HCG.beta subunit Qn 11 m[IU]/mL Normal [facility] Comment on above: Result Comment: NEW REFERENCE RANGE WEEKS (SINCE LMP) MIU/mL 3 WEEKS 5 - 50 4 WEEKS 5 - 426 5 WEEKS 18 - 7,340 6 WEEKS 1,080 - 56,500 7-8 WEEKS 7,650 - 229,000 9-12 WEEKS 25,700 - 288,000 13-16 WEEKS 13,300 - 254,000 17-24 WEEKS 4,060 - 165,400 25-40 WEEKS 3,640 - 117,000 MALES AND NON- FEMALES - <5 MIU/mL This test has been FDA approved for use in only. Elevated levels are not necessarily diagnostic for trophoblastic or nontrophoblastic neoplasms. Performed By: #### 2 106-3 #### [facility] ([id number]) [address] [place] [address] 71549 MAGNESIUMon 03-14-2024 Magnesium [Mass/Vol] 2.1 mg/dL Normal 1.8-2.6 [facility] Comment on above: Performed By: #### 2 106-3 #### [facility] ([id number]) [address] [place] [address] 99071 PROTIME AND INRon 03-14-2024 INR Coag (PPP) [Relative time] 1.0 {INR} Normal 0.8-1.1 [facility] Comment on above: Performed By: #### 2 0415-6, 39663-9, PINR, CMP, 40682-3, 77896-8, 59297-2, CBCA #### [facility] ([id number]) [address] [place] [address] [place] [address] PT Coag (PPP) [Time] 11.9 s Normal 9.8-13.2 [facility] Comment on above: Result Comment: NEW REFERENCE RANGE Performed By: #### 2 0415-6, 90027-2, PINR, CMP, 86306-1, 49016-9, 59120-4, CBCA #### [facility] ([id number]) [address] [place] [address] [place] [address] Troponin I.cardiac High sens itivity method [Mass/Vol]on 03-14-2024 1 HOUR TROP I, HIGH SENSITIVITY <2 Normal <16 [facility] Comment on above: Performed By: #### 2 106-3 #### [facility] ([id number]) [address] [place] [address] [place] [address] TROPONIN I, HIGH SENSITIVITY <2 Normal <16 [facility] Comment on above: Performed By: #### 2 106-3 #### [facility] ([id number]) [address] [place] [address] [place] [address] URN MACROSCOPIC NURon 2023 BILIRUBIN VICKI Negative Normal NEG [facility] Comment on above: Performed By: #### 2 106-3 #### [facility] ([id number]) [address] [place] [address] [place] [address] BLOOD/HGB VICKI Trace Abnormal NEG [facility] Comment on above: Performed By: #### 2 106-3 #### [facility] ([id number]) [address] [place] [address] [place] [address] GLUCOSE VICKI Negative Normal NEG [facility] Comment on above: Performed By: #### 2 106-3 #### [facility] ([id number]) [address] [place] [address] 28388 KETONES VICKI Trace Abnormal NEG [facility] Comment on above: Performed By: #### 2 106-3 #### [facility] ([id number]) [address] [place] [address] 00300 LEUKOCYTE ESTERASE VICKI Negative Normal NEG [facility] Comment on above: Performed By: #### 2 106-3 #### [facility] ([id number]) [address] [place] [address] 71606 NITRITE VICKI Negative Normal NEG [facility] Comment on above: Performed By: #### 2 106-3 #### [facility] ([id number]) [address] [place] [address] 69487 PH VICKI 6.0 Normal 5.0-8.5 [facility] Comment on above: Performed By: #### 2 106-3 #### [facility] ([id number]) [address] [place] [address] 12555 PROTEIN VICKI Negative Normal NEG [facility] Comment on above: Performed By: #### 2 106-3 #### [facility] ([id number]) [address] [place] [address] 21556 SPECIFIC GRAVITY VICKI >=1.030 Normal 1.003-1.035 [facility] Comment on above: Performed By: #### 2 106-3 #### [facility] ([id number]) [address] [place] [address] 13998 UROBILINOGEN VICKI 0.2 eu/dL Normal <1.1 [facility] Comment on above: Performed By: #### 2 106-3 #### [facility] ([id number]) [address] [place] [address] 83530 XR CHEST 1 VWon 03-14-2024 XR CHEST 1 VW XR CHEST 1 VW XR CHEST 1 VW: 03/14/2024 6:30 PM CLINICAL INDICATION: Pain TECHNIQUE: AP view of the chest COMPARISON: 02/28/2024. FINDINGS: The cardiomediastinal silhouette and pulmonary vessels are within normal limits. Lungs and pleural spaces are clear. There is no pneumothorax. IMPRESSION: No acute cardiopulmonary process. Finalized by Celestine Mcdonnell MD on 03/14/2024 6:50 PM Normal [facility] aPTT Coag (PPP) [Time]on aPTT Coag (Bld) [Time] 35 s Normal 26-37 [facility] Comment on above: Result Comment: NEW REFERENCE RANGE Performed By: #### 2 106-3 #### [facility] ([id number]) [address] [place] [address], [place] [address] Coding Summaryon 03-08-2024 Coding Summary HTMLBase 64 YcbnastpLEq0jUe+PGhlYW Q+BH9JNMTpE96lvOCqdN7c Y1OUIKzDFltjNNQJOUbHGr GdzqEcJD8yrIYbTAFj IC8+ZT5aHGKxJflmnFUck2 J2mTB2E10kdn4sPPbxmEJ5 VRSjKlIiaeovt2jxhZb4DG cuNmluOyBt RZHadJ87PBF8mW60Gg37wD CwySEej7dhwQx2ZiUtIMOa CIF7uZzfTDslu0ZpCRSsV7 4rqSTtq4Z6 HOTrgCpdhDRyZpOroCK6kW 4cMUelytiad5qpcvciRbg2 yw26oIPnp5M2oOW3G9Zzba X4XKOhbHDn PkczgYMVmI3bczjmi4cuit lpSzPmJYSwKMd3VEs3LJLv gVdgBwJtBC14DIU8QUQegw SyF7KfQGZk vTjoIkZ0s6N6Wn8YB2PIEz mcO4HUCFJWGMemyWD+PC90 pt37E2DrMmqgUsy2ZUBxSF G2jAR5dX3i JRBkADqls0T1uFP2R0Wgge Rkdc3cg1ppGBNlCQrjH13d uIVsg3U6KTZhcCW9DTJieI axKwZtkE15 Oyc+LFDcjAqsz2PlXiajv0 ewe8elfAu3OaciOOEosrSo sCykVIQ6v4XlVl0wZLNmqO I0kGK0lQ2k PsFgMdC5JAjwC260ZxLffM GgEnhfE11fU7XbzUX+PHRy Djq8IFBdaNglOP8eJ0AvSA RpbmctbGVm nVakSP6cRFFtxfedGQVpdU 1aZUEpK9m7LlZyTaW0JJgi V9CfHLNoewprQy45oI6gIm HfJtA6IMjx D2KyheT8UWAduGXhZYcrFO L9L30fl2Y5FUGbUZBqYRE3 eUH5zX3ntDerbbnycNEnvQ sgdmVydGlj AWzmIAlmH864WQSpnPsoRc NvZGluZyBEYXRlOiAgMDcv MjkvMjAyNDwvdGQ+PHRkIH K8wAfxULGd vEXfAQezHv0tgHpirTrnEU 0pQAXvnqnqDONcgN9hNOSu bTHexIdfBD2aUSBkanxmw9 59QoQmBSY0 VBGikJYfZ1HbpO2sWvRdTQ PqWGGvP8HcwGCvXIabM107 ZKpwXjB0VLOulePnX3IrWI FsaWduOiB0 y6X2Ew6Lc3KuwlqxE9EyiD QtHsFwAjqwXLw3T6TtKxwp dHI+TP07BXCoIV10KRb5IB H5eBjhYRmr OWWqS8VawS5kFqTeGKWbFP RkOyc+PHRhYmxlIHdpZHRo QCvuXFAzYgKxqYjpZO4fCi 9yZGVyLWNv dQrhuHVcPyTqv2ocIFYrSQ vzCO1asYqnE0AwwIC8YJTn o1n8Sw96O83pG1YygBT+PG OrgOB0yEF1 oL8lSqIgPlE9ZJcbC241Li MnyRSlFrpdn3ktx8rnjCb5 RfI0ZZBrdyNanLosHPB5e3 NgPv90D64r IHdpZHRoPSIxNSUiIHZhbG hwbj5irE2wIz4+PGNvbCB3 eUI9yC8tBoXjJuK9ZItnT8 49InRvcCIv Malmp6ftd2lnaYi0ClQrVO OlbxUytYlpALV4z1OpHr71 D8MwrAaar9YuNnc5ho51wG Aen2M4uAJ2 N8GwEGWcowdteMSdyQqwSB 4mVGVixdwqEPDggS8bHMXf A0a1KtBfLqJ4WDxuD1Djqz V7MGPjeBHj TSBxiIEMvU3efnbnj0grcp ppArUiBDTbQCm1BGh4KQYc nAzvNnRkCBG9EjN5DYP2lW FqaE2saTsy rytftY0eIgs+SVW4xFIgnW SWGG2sLkuriNW+PHRkIHN0 gQjzCRqiDUIicI9bSXUtW1 v1AsQhBtP2 OKieR1NcaqW4LAFntCLbNB WguHZUhI4rwxugi3hnktir DgCuVKTpRQs3GZn3KFMilL duOiBsZWZ0 SmO1KSA4wKPthL0foOejok zfzL2tBsb+QmlydGggRGF0 LKx9Y2ZjWxl1FKRdkLruET 0ncGFkZGlu Ox6gzLseaVvcMX9gJJYxwa twu690XnDue2kfIXKjsSXo GSrgBQE3V84ba5W5CGNqOT ZwBFE0iUO1 eY7imRayxeqyaYZbsFsedu FwhFsqARqlKEdcX299SYOb kLsdPjGgXVs7V9KgAgz3AZ GdjBdsGC6j bCNpCNyaSl3ryTyfvKscUS 3lJCYzhqmnv409LuAgd9as UUIemOLoESqwYNN4H73qr7 Q7OETyPEWy ISF6cQW1aI2klJxuebcvcN VmdDsgdmVydGljYWwtYWxp S267SCJzsZvlFpJzvMh7J9 JjJzi0LLEh yIdkCS5zwZSvJHneXz3rnX qitJcqWI3oQGFedncto649 LeQtv8xoPVPjeOVkVOouIM B0V74ex5I8 MSZiONEaCDA8qXA7vA6wwT lnbjogbGVmdDsgdmVydGlj SCqvDXmuL513YUVhaRhuCg BhdGllbnQg XMbsTEi9M1SlGzykvUJ+PC 34GHWdAW25sCBpsLTco9au hSh3FeWtVSEjZNR6eKghWA zfd5DgVHBu M30koTGkp6U3ENYocAcqjY LnGaEivJU8qU7qVNezcjhk l8txpcupGygjj8gaed08qX 94E74wLXwp ZHRoPSIzMCUiIHZhbGlnbj 3vzZ4nBt9+NYUpnDI9xTT8 fK5gFBVcXqR2RYqmW025Ch RvcCIvPjxj h2agj1hbuPg4MkK6FWYshx MovNueWOS0d0AmGe96G09w IHdpZHRoPSIyMCUiIHZhbG ugfj9joK9u Ii8+MDTbyAW4wAM5pU5eKy NmKwJ0PMsgV512PgWhtEQl BljfV00pN7ZhjHD+PHRyPj n1PEXnpAfs GW1kvWMxGRlhXp3oZHA6Go DsGyLyCLobS0GpUIYybkvr crdtmKM0FVFdNRKcrE27Bq 9udDogMTBw uFCDnM7gqnrds9nydebwSr NrXBRaXTx2WOq8KHEtwHvv TfDqQRF5RuH7ZWB3gKJrrQ 1hbGlnbjog oD8mR8RcNLSpgdmlQg89aZ 7tBaYuSqK3YEfoIoh+R09N MLshUByCPUMATZzYBD93AZ 38kUSun1Z9 gQN6G3FdLZTvgciyptmhyV E3TLCsRNEkoY67bVGgASwf Of1qy3A9l019JTEuEGCtiE 10Gu4hsHvo XEDskYCOrH5kbwkns0jvxe waHjRaQKDpENc0SYc9SWBu pZwiIcUpLTI1ItV3RAJ2dX SimF6qmRya jqrliV8oDhd+MDQvMjMvMj AwMjwvdGQ+OGXgEWL9xIxy LBltTZZpjW1nHGRmJ3u7Rn IiVbJ3DUxy H0PqAPVewcakBy71jX6yCg QuCyA5UOwvW2TpkgD7LREv uGVmRPjaKSO7M05yr1Y9ET MwMDAwMDA7 iRI8mN2xvIevqzuliHDpvN ibsgTroKnbKHnlDYeyZ623 IHRvcDsnPjIyIFllYXJzPC 39OJ14vCAj b8X8nOH6V4OmMVSkolcmfy nffXO8LSNdRSZfbB64eWYr GDmyMz2ab9R5j910UTJwYZ PijQ47Xu1i lMarGHPigBVLdB5igphae6 bljegiZfRbOARqDFc0TSw3 IMMjxRawLfAoYRY8DrW8YD L2lMEnlR1n cMysemhjoS0cVpi+RkVNQU iDFY49RV43rYIdz2C9qKT6 C7VwFHCqavokdkkobBT5ES NtCCAeqH88 iVTvYTujFd7nt5T4i171KF LjMIKbkE14Fx4yoCerTHFp tYMAqK0jglrjh9jlydvmRs AwMDAwMDt0 GLi9THEcgEovZqVxHZD3Cz D6KGQ4vNQoyQ5xvQfxuuae vM5qDph+VS4slxrdhqO4CW 16NZ88G3Rr PjwvdGFibGU+PHRhYmxlIH dpZHRoPScxMDAlJyBzdHls HH2dZs5qBVBpQFRipZiyyW XwOcBtn6uk NFYsQBllIB9bzLfiH1JzbK S5LSFib4q8Ew28S75cU9Mp dXA+QUZnxOW8aRL9mR1aKr GbOvJ6RJzt R401NfIlfSJaPdekb4dvz6 ujoUj3YjRfOOYrtrYbyEdx OOM8t9QbAo82I29jMOvkHF RoPSIyMCUi TSIgaUpfkb3uaN6xVn8+PG GrvGO1tPG3uO8xDyChBaJ2 ICttM635WlWatTOmQdewY3 8uF6RxpRC+ CGVkBom3RHXkeGhwUM6bbD DzYDaqVk5xPHG5RnYzWiXa WYnxO1QzJKYsiihstorlcC R3PDRuITGc xL27Ho3jyFduVe0mVSNnCV E1HQMfcLCnP5UwrV5yItGt LNDxATCcL6XblNXjNCahT5 36FHzzXzR1 SEYodlTnJ1GoDBOquIhrWp K8n4E5Iu8QtBjfsMYaEL6m WcHfOTx8R9KrGjy2GBDbwG ziSF3vbKDg NGjgHr4crEthlEfnTT6gZU Dsgwpvk711AsPjc5qbIRFp nWTjPQkaZZJ0B05ri0W7VY MwMDAwMDA7 hMM8bX4wdKpocqvnbULovS spyrQtoTxfXRnaOYpvH957 UDFsyMihWrHYLnx6E3GbEh r3GVWduXfu VM2cbQRmAZagNl6nuIwlgE vxDZ5zAFBoitcyl271ZdQv w5dkKSMmaCCqEEapIIQ2V5 7ny6C4EEUj KZIqDPV9fRN6cZ8crTjcrf ogbGVmdDsgdmVydGljYWwt AEenQ291JPOtqSysHb2MOk u7A7AbShf4 TOMewKsvXG3hyEByEKnbHl 1heIkfwUnqAC2yYHIyufff e605WtXma9dyVNCcuXPkER muWKP9Z78u n9C6YYBxETNdSIX3iLB2uW 1hbGlnbjogbGVmdDsgdmVy dDvjILmxKHafF579AEArrQ snPlBheWVy OjwvdGQ+OF76qh53F8OfAe ouYfu0SBKfARU2hCS2wE2r YLOuROgwc7A5rCJ4P8Brez Okjp2yz5nt YXB (more content not included)... Normal [facility] CBC AND AUTO DIFFon 03-01-20 24 ABSOLUTE BASOPHIL 0.0 X10E9/L Normal 0.0-0.[address] [facility] Comment on above: Performed By: #### C BCA, 4679-7, 45490-2, 68215-4, 2143-6, THYR, 2276-4, 2284-8, 2132-9, CMP, FEPR, 2532-0, 04214-1, 2777-1, 47408-6 #### [facility] ([id number]) [address], [address] [place] [address] ABSOLUTE NEUTROPHIL 6.2 X10E9/L Normal 1.5-6.6 [facility] Comment on above: Performed By: #### C BCA, 4679-7, 36652-2, 88086-0, 2143-6, THYR, 2276-4, 2284-8, 2132-9, CMP, FEPR, 2532-0, 19490-9, 2777-1, 10704-8 #### [facility] ([id number]) [address], [address] [place] [address] Basophils/100 WBC (Bld) 0.2 % Normal [facility] Comment on above: Performed By: #### C BCA, 4679-7, 86594-1, 00758-6, 2143-6, THYR, 2276-4, 2284-8, 2132-9, CMP, FEPR, 2532-0, 91407-8, 2777-1, 62177-3 #### [facility] ([id number]) [address], [address] [place] [address] Eosinophils (Bld) [#/Vol] 0.0 10*3/uL Normal 0.0-0.4 [facility] Comment on above: Performed By: #### C BCA, 4679-7, 43810-8, 44764-6, 2143-6, THYR, 2276-4, 2284-8, 2132-9, CMP, FEPR, 2532-0, 27389-9, 7-1, 55689-7 #### [facility] ([id number]) [address], [address] [place] [address] Eosinophils/100 WBC (Bld) 0.2 % Normal [facility] Comment on above: Performed By: #### C BCA, 4679-7, 32289-4, 17407-4, 2143-6, THYR, 2276-4, 2284-8, 2132-9, CMP, FEPR, 2532-0, 06986-4, 2777-1, 99882-4 #### [facility] ([id number]) [address], [address] [place] [address] Erythrocyte distribution width (RBC) [Ratio] 14.6 % Normal 11.5-15.0 [facility] Comment on above: Performed By: #### C BCA, 4679-7, 38850-0, 47262-7, 2143-6, THYR, 2276-4, 2284-8, 2132-9, CMP, FEPR, 2532-0, 40162-6, 2777-1, 01391-2 #### [facility] ([id number]) [address], [facility] [address] [place] [address] Hematocrit (Bld) [Volume fraction] 26.9 % Low 35-47 [facility] Comment on above: Performed By: #### C BCA, 4679-7, 94652-0, 99032-6, 2143-6, THYR, 2276-4, 2284-8, 2132-9, CMP, FEPR, 2532-0, 97379-7, 2777-1, 87122-1 #### [facility] ([id number]) [address], [facility] [address] [place] [address] Hemoglobin (Bld) [Mass/Vol] 9.3 g/dL Low 11.7-15.5 [facility] Comment on above: Performed By: #### C BCA, 4679-7, 21591-3, 30337-6, 2143-6, THYR, 2276-4, 2284-8, 2132-9, CMP, FEPR, 2532-0, 35024-4, 2777-1, 44620-4 #### [facility] ([id number]) [address] [address] Lymphocytes (Bld) [#/Vol] 1.1 10*3/uL Normal 1.0-3.5 [facility] Comment on above: Performed By: #### C BCA, 4679-7, 66775-1, 97821-3, 2143-6, THYR, 2276-4, 2284-8, 2132-9, CMP, FEPR, 2532-0, 58718-2, 2777-1, 40101-7 #### [facility] ([id number]) [address], [address] [place] [address] Lymphocytes/100 WBC (Bld) 14.6 % Normal [facility] Comment on above: Performed By: #### C BCA, 4679-7, 46104-7, 81170-0, 2143-6, THYR, 2276-4, 2284-8, 2132-9, CMP, FEPR, 2532-0, 79051-6, 2777-1, 50350-3 #### [facility] ([id number]) [address], [address] [place] [address] MCH (RBC) [Entitic mass] 30.3 pg Normal 27-34 [facility] Comment on above: Performed By: #### C BCA, 4679-7, 25598-9, 80631-8, 2143-6, THYR, 2276-4, 2284-8, 2132-9, CMP, FEPR, 2532-0, 34100-8, 2777-1, 67727-6 #### [facility] ([id number]) [address], [address] [place] [address] MCHC (RBC) [Mass/Vol] 34.5 g/dL Normal 32-36 [facility] Comment on above: Performed By: #### C BCA, 4679-7, 50918-0, 58159-5, 2143-6, THYR, 2276-4, 2284-8, 2132-9, CMP, FEPR, 2532-0, 40427-8, 2777-1, 62733-3 #### [facility] ([id number]) [address], [address] [place] [address] MCV (RBC) [Entitic vol] 88 fL Normal 80-100 [facility] Comment on above: Performed By: #### C BCA, 4679-7, 35425-3, 42762-8, 2143-6, THYR, 2276-4, 2284-8, 2132-9, CMP, FEPR, 2532-0, 39881-4, 2777-1, 64056-8 #### [facility] ([id number]) [address], [address] [place] [address] Monocytes (Bld) [#/Vol] 0.2 10*3/uL Normal 0-0.9 [facility] Comment on above: Performed By: #### C BCA, 4679-7, 88446-5, 92578-5, 2143-6, THYR, 2276-4, 2284-8, 2132-9, CMP, FEPR, 2532-0, 31424-2, 7-1, 73126-8 #### [facility] ([id number]) [address], [address] [place] [address] Monocytes/100 WBC (Bld) 2.4 % Normal [facility] Comment on above: Performed By: #### C BCA, 4679-7, 40198-9, 99314-1, 2143-6, THYR, 2276-4, 2284-8, 2-9, CMP, FEPR, 2532-0, 02762-7, 7-1, 88240-8 #### [facility] ([id number]) [address], [address] [place] [address] Neutrophils/100 WBC (Bld) 82.6 % Normal [facility] Comment on above: Performed By: #### C BCA, 4679-7, 86496-2, 71152-7, 2143-6, THYR, 2276-4, 2284-8, 2132-9, CMP, FEPR, 2532-0, 92571-7, 2777-1, 43552-5 #### [facility] ([id number]) [address], [address] [place] [address] Platelet mean volume (Bld) [Entitic vol] 8.6 fL Normal 7-12 [facility] Comment on above: Performed By: #### C BCA, 4679-7, 05288-4, 93755-8, 2143-6, THYR, 2276-4, 2284-8, 2132-9, CMP, FEPR, 2532-0, 19877-8, 2777-1, 87426-0 #### [facility] ([id number]) [address], [address] [place] [address] Platelets (Bld) [#/Vol] 195 10*3/uL Normal 150-450 [facility] Comment on above: Performed By: #### C MINNIE, 4679-7, 77365-0, 29268-4, 2143-6, THYR, 2276-4, 2284-8, 2132-9, CMP, FEPR, 2532-0, 31054-0, 2777-1, 80676-8 #### [facility] ([id number]) [address], [facility] [address] [place] [address] RBC COUNT 3.07 X10E12/L Low 3.80-5.20 [facility] Comment on above: Performed By: #### C BCA, 4679-7, 91290-9, 64435-3, 2143-6, THYR, 2276-4, 2284-8, 2132-9, CMP, FEPR, 2532-0, 42461-8, 2777-1, 28051-5 #### [facility] ([id number]) [address], [address] [place] [address] WBC (Bld) [#/Vol] 7.6 10*3/uL Normal 4.0-11.[address] [facility] Comment on above: Performed By: #### C BCA, 4679-7, 05379-0, 09524-0, 2143-6, THYR, 2276-4, 2284-8, 2132-9, CMP, FEPR, 2532-0, 31695-4, 2777-1, 97849-5 #### [facility] ([id number]) [address], [address] [place] [address] COMPREHENSIVE METABOLIC PANE Dylan 03-01-2024 Albumin [Mass/Vol] 3.5 g/dL Normal 3.2-5.[address] [facility] Comment on above: Performed By: #### C BCA, 4679-7, 62642-8, 89187-4, 2143-6, THYR, 2276-4, 2284-8, 2132-9, CMP, FEPR, 2532-0, 63998-6, 2777-1, 43025-6 #### [facility] ([id number]) [address], [address] [place] [address] ALP [Catalytic activity/Vol] 39 U/L Normal 39-130 [facility] Comment on above: Performed By: #### C BCA, 4679-7, 80888-0, 14276-3, 2143-6, THYR, 2276-4, 2284-8, 2131-9, CMP, FEPR, 2532-0, 32130-3, 2777-1, 19826-0 #### [facility] ([id number]) [address], [address] [place] [address] ALT [Catalytic activity/Vol] 13 U/L Normal 0-31 [facility] Comment on above: Performed By: #### C BCA, 4679-7, 37740-4, 35085-7, 2143-6, THYR, 2276-4, 2284-8, 2132-9, CMP, FEPR, 2532-0, 74335-7, 2777-1, 91431-9 #### [facility] ([id number]) [address], [address] [place] [address] Anion gap [Moles/Vol] 5 mmol/L Normal 5-15 [facility] Comment on above: Performed By: #### C BCA, 4679-7, 70504-2, 76523-7, 2143-6, THYR, 2276-4, 2284-8, 2132-9, CMP, FEPR, 2532-0, 40191-1, 2777-1, 41567-5 #### [facility] ([id number]) [address], [address] [place] [address] AST [Catalytic activity/Vol] 15 U/L Normal 0-41 [facility] Comment on above: Performed By: #### C BCA, 4679-7, 95227-3, 96932-8, 2143-6, THYR, 2276-4, 2284-8, 2132-9, CMP, FEPR, 2532-0, 76566-7, 2777-1, 14286-3 #### [facility] ([id number]) [address], [address] [place] [address] Bilirubin [Mass/Vol] 0.3 mg/dL Normal 0.3-1.2 [facility] Comment on above: Performed By: #### C BCA, 4679-7, 30640-6, 32605-3, 2143-6, THYR, 2276-4, 2284-8, 2132-9, CMP, FEPR, 2532-0, 85129-1, 2777-1, 60170-2 #### [facility] ([id number]) [address], [address] [place] [address] Calcium [Mass/Vol] 8.4 mg/dL Low 8.5-10.[address] [facility] Comment on above: Performed By: #### C BCA, 4679-7, 73290-5, 96921-2, 2143-6, THYR, 2276-4, 2284-8, 2132-9, CMP, FEPR, 2532-0, 98547-3, 2777-1, 88216-0 #### [facility] ([id number]) [address], [address] [place] [address] Chloride [Moles/Vol] 110 mmol/L High 98-109 [facility] Comment on above: Performed By: #### C BCA, 4679-7, 74799-2, 90967-1, 2143-6, THYR, 2276-4, 2284-8, 2132-9, CMP, FEPR, 2532-0, 89439-8, 2777-1, 61174-6 #### [facility] ([id number]) [address], [address] [place] [address] CO2 [Moles/Vol] 26 mmol/L Normal 22-32 [facility] Comment on above: Performed By: #### C BCA, 4679-7, 33459-4, 17451-2, 2143-6, THYR, 2276-4, 2284-8, 2132-9, CMP, FEPR, 2532-0, 02498-6, 2777-1, 38838-5 #### [facility] ([id number]) [address], [address] [place] [address] Creatinine [Mass/Vol] 0.48 mg/dL Normal 0.40-1.00 [facility] Comment on above: Result Comment: METH OD TRACEABLE TO IDMS STANDARD Performed By: #### C BCA, 4679-7, 91815-4, 54470-4, 2143-6, THYR, 2276-4, 2284-8, 2132-9, CMP, FEPR, 2532-0, 63677-3, 2777-1, 73361-8 #### [facility] ([id number]) [address], [address] [place] [address] eGFR (CKD-EPI) NON-RACE DEPENDENT >90 Normal >59 [facility] Comment on above: Result Comment: Reported eGFR is based on the CKD-EPI 2020 equation that does not use a race coefficient. Performed By: #### C BCA, 4679-7, 77634-7, 48225-5, 2143-6, THYR, 2276-4, 2284-8, 2132-9, CMP, FEPR, 2532-0, 64407-7, 2777-1, 41120-4 #### [facility] ([id number]) [address], [address] [place] [address] Glucose [Mass/Vol] 117 mg/dL High 65-[address] [facility] Comment on above: Performed By: #### C BCA, 4679-7, 31298-2, 23772-8, 2143-6, THYR, 2276-4, 2284-8, 2132-9, CMP, FEPR, 2532-0, 32450-0, 7-1, 81579-6 #### [facility] ([id number]) [address], [address] [place] [address] Potassium [Moles/Vol] 4.3 mmol/L Normal 3.5-5.0 [facility] Comment on above: Performed By: #### C BCA, 4679-7, 19515-5, 47522-2, 2143-6, THYR, 2276-4, 2284-8, 2131-9, CMP, FEPR, 2532-0, 25433-7, 7-1, 02436-0 #### [facility] ([id number]) [address], [address] [place] [address] Protein [Mass/Vol] 5.3 g/dL Low 6.0-8.[address] [facility] Comment on above: Performed By: #### C BCA, 4679-7, 30611-9, 84248-6, 2143-6, THYR, 2276-4, 2284-8, 2132-9, CMP, FEPR, 2532-0, 13043-4, 2777-1, 95671-5 #### [facility] ([id number]) [address], [address] [place] [address] Sodium [Moles/Vol] 141 mmol/L Normal 134-[address] [facility] Comment on above: Performed By: #### C BCA, 4679-7, 27415-9, 17817-7, 2143-6, THYR, 2276-4, 2284-8, 2132-9, CMP, FEPR, 2532-0, 34703-3, 2777-1, 18002-5 #### [facility] ([id number]) [address], [address] [place] [address] Urea nitrogen [Mass/Vol] 5 mg/dL Normal 5-23 [facility] Comment on above: Performed By: #### C BCA, 4679-7, 38340-0, 35097-2, 2143-6, THYR, 2276-4, 2284-8, 2132-9, CMP, FEPR, 2532-0, 68096-2, 2777-1, 57790-6 #### [facility] ([id number]) [address] [facility], [address] [place] [address] PROTIME AND INRon 03-01-2024 INR Coag (PPP) [Relative time] 1.1 {INR} Normal 0.8-1.1 [facility] Comment on above: Performed By: #### C BCA, 4679-7, 89475-0, 12059-6, 2143-6, THYR, 2276-4, 2284-8, 2-9, CMP, FEPR, 2532-0, 32004-2, 2777-1, 01464-2 #### [facility] ([id number]) [address] [facility], [address] [place] [address] PT Coag (PPP) [Time] 12.7 s Normal 9.8-13.2 [facility] Comment on above: Performed By: #### C BCA, 4679-7, 88049-5, 17657-1, 2143-6, THYR, 2276-4, 2284-8, 2132-9, CMP, FEPR, 2532-0, 18961-5, 2777-1, 48064-8 #### [facility] ([id number]) [address], [address] [place] [address] aPTT Coag (PPP) [Time]on aPTT Coag (Bld) [Time] 31 s Normal 26-37 [facility] Comment on above: Performed By: #### C BCA, 4679-7, 74979-0, 70103-1, 2143-6, THYR, 2276-4, 2284-8, 2132-9, CMP, FEPR, 2532-0, 67423-3, 2777-1, 11122-0 #### [facility] ([id number]) [address], [address] [place] [address] CBC AND AUTO DIFFon 02-29-20 24 ABSOLUTE BASOPHIL 0.0 X10E9/L Normal 0.0-0.[address] [facility] Comment on above: Performed By: #### C BCA, 4679-7, 68311-1, 97714-8, 2143-6, THYR, 2276-4, 2284-8, 2131-9, CMP, FEPR, 2532-0, 46453-9, 2777-1, 74406-2 #### [facility] ([id number]) [address], [address] [place] [address] ABSOLUTE NEUTROPHIL 4.1 X10E9/L Normal 1.5-6.6 [facility] Comment on above: Performed By: #### C BCA, 4679-7, 12070-3, 81726-7, 2143-6, THYR, 2276-4, 2284-8, 2-9, CMP, FEPR, 2532-0, 39236-1, 2777-1, 15499-3 #### [facility] ([id number]) [address], [address] [place] [address] Basophils/100 WBC (Bld) 0.5 % Normal [facility] Comment on above: Performed By: #### C MINNIE, 4679-7, 44451-6, 64420-4, 2143-6, THYR, 2276-4, 2284-8, 2132-9, CMP, FEPR, 2532-0, 17797-9, 2777-1, 62845-9 #### [facility] ([id number]) [address], [address] [place] [address] Eosinophils (Bld) [#/Vol] 0.1 10*3/uL Normal 0.0-0.4 [facility] Comment on above: Performed By: #### C MINNIE, 4679-7, 29255-8, 70359-8, 2143-6, THYR, 2276-4, 2284-8, 2132-9, CMP, FEPR, 2532-0, 99494-3, 2777-1, 04984-2 #### [facility] ([id number]) [address], [address] [place] [address] Eosinophils/100 WBC (Bld) 0.9 % Normal [facility] Comment on above: Performed By: #### C MINNIE, 4679-7, 48773-5, 91164-9, 2143-6, THYR, 2276-4, 2284-8, 2132-9, CMP, FEPR, 2532-0, 17443-4, 7-1, 04076-1 #### [facility] ([id number]) [address], [address] [place] [address] Erythrocyte distribution width (RBC) [Ratio] 13.9 % Normal 11.5-15.0 [facility] Comment on above: Performed By: #### C MINNIE, 4679-7, 27345-6, 47903-7, 2143-6, THYR, 2276-4, 2284-8, 2132-9, CMP, FEPR, 2532-0, 29183-5, 2777-1, 67994-7 #### [facility] ([id number]) [address], [address] [place] [address] Hematocrit (Bld) [Volume fraction] 25.7 % Low 35-47 [facility] Comment on above: Performed By: #### C BCA, 4679-7, 76237-0, 70265-0, 2143-6, THYR, 2276-4, 2284-8, 2132-9, CMP, FEPR, 2532-0, 83805-3, 2777-1, 11439-4 #### [facility] ([id number]) [address], [address] [place] [address] Hemoglobin (Bld) [Mass/Vol] 9.0 g/dL Low 11.7-15.5 [facility] Comment on above: Performed By: #### C BCA, 4679-7, 10878-5, 21706-4, 2143-6, THYR, 2276-4, 2284-8, 2132-9, CMP, FEPR, 2532-0, 79796-0, 2776-1, 05639-8 #### [facility] ([id number]) [address], [address] [place] [address] Lymphocytes (Bld) [#/Vol] 3.1 10*3/uL Normal 1.0-3.5 [facility] Comment on above: Performed By: #### C BCA, 4679-7, 25479-4, 84412-1, 2143-6, THYR, 2276-4, 2284-8, 2132-9, CMP, FEPR, 2532-0, 01053-3, 277-1, 86968-5 #### [facility] ([id number]) [address], [address] [place] [address] Lymphocytes/100 WBC (Bld) 39.6 % Normal [facility] Comment on above: Performed By: #### C BCA, 4679-7, 57104-8, 18139-0, 2143-6, THYR, 2276-4, 2284-8, 2132-9, CMP, FEPR, 2532-0, 17941-7, 2777-1, 26206-2 #### [facility] ([id number]) [address], [address] [place] [address] MCH (RBC) [Entitic mass] 30.1 pg Normal 27-34 [facility] Comment on above: Performed By: #### C BCA, 4679-7, 41801-7, 78835-6, 2143-6, THYR, 2276-4, 2284-8, 2132-9, CMP, FEPR, 2532-0, 27520-0, 2777-1, 43304-7 #### [facility] ([id number]) [address], [address] [place] [address] MCHC (RBC) [Mass/Vol] 34.8 g/dL Normal 32-36 [facility] Comment on above: Performed By: #### C BCA, 4679-7, 58535-7, 31699-4, 2143-6, THYR, 2276-4, 2284-8, 2132-9, CMP, FEPR, 2532-0, 48601-4, 2777-1, 75495-3 #### [facility] ([id number]) [address], [address] [place] [address] MCV (RBC) [Entitic vol] 87 fL Normal 80-100 [facility] Comment on above: Performed By: #### C BCA, 4679-7, 47331-0, 56222-6, 2143-6, THYR, 2276-4, 2284-8, 2132-9, CMP, FEPR, 2532-0, 06708-6, 2777-1, 62121-9 #### [facility] ([id number]) [address], [address] [place] [address] Monocytes (Bld) [#/Vol] 0.5 10*3/uL Normal 0-0.9 [facility] Comment on above: Performed By: #### C MINNIE, 4679-7, 99143-3, 65437-6, 2143-6, THYR, 2276-4, 2284-8, 2132-9, CMP, FEPR, 2532-0, 05448-9, 2777-1, 62354-0 #### [facility] ([id number]) [address], [address] [place] [address] Monocytes/100 WBC (Bld) 6.2 % Normal [facility] Comment on above: Performed By: #### C MINNIE, 4679-7, 10589-4, 36221-9, 2143-6, THYR, 2276-4, 2284-8, 2132-9, CMP, FEPR, 2532-0, 35058-5, 7-1, 96824-9 #### [facility] ([id number]) [address], [address] [place] [address] Neutrophils/100 WBC (Bld) 52.8 % Normal [facility] Comment on above: Performed By: #### C MINNIE, 4679-7, 50311-8, 78352-0, 2143-6, THYR, 2276-4, 2284-8, 2132-9, CMP, FEPR, 2532-0, 72451-7, 2776-1, 50240-5 #### [facility] ([id number]) [address], [address] [place] [address] Platelet mean volume (Bld) [Entitic vol] 8.3 fL Normal 7-12 [facility] Comment on above: Performed By: #### C MINNIE, 4679-7, 11359-8, 94616-7, 2143-6, THYR, 2276-4, 2284-8, 2132-9, CMP, FEPR, 2532-0, 57416-4, 2777-1, 21400-5 #### [facility] ([id number]) [address], [address] [place] [address] Platelets (Bld) [#/Vol] 176 10*3/uL Normal 150-450 [facility] Comment on above: Performed By: #### C BCA, 4679-7, 51973-2, 73854-0, 2143-6, THYR, 2276-4, 2284-8, 2132-9, CMP, FEPR, 2532-0, 52078-2, 2777-1, 10688-5 #### [facility] ([id number]) [address], [address] [place] [address] RBC COUNT 2.98 X10E12/L Low 3.80-5.20 [facility] Comment on above: Performed By: #### C BCA, 4679-7, 67732-0, 91821-1, 2143-6, THYR, 2276-4, 2284-8, 2132-9, CMP, FEPR, 2532-0, 89104-3, 2777-1, 70699-0 #### [facility] ([id number]) [address], [address] [place] [address] WBC (Bld) [#/Vol] 7.9 10*3/uL Normal 4.0-11.[address] [facility] Comment on above: Performed By: #### C BCA, 4679-7, 58036-9, 27311-0, 2143-6, THYR, 2276-4, 2284-8, 2132-9, CMP, FEPR, 2532-0, 64124-1, 2777-1, 15191-0 #### [facility] ([id number]) [address], [address] [place] [address] COMPREHENSIVE METABOLIC PANE Dylan 02-29-2024 Albumin [Mass/Vol] 2.7 g/dL Low 3.2-5.[address] [facility] Comment on above: Performed By: #### C BCA, 4679-7, 58887-5, 33044-3, 2143-6, THYR, 2276-4, 2284-8, 2132-9, CMP, FEPR, 2532-0, 52413-2, 2777-1, 16884-8 #### [facility] ([id number]) [address], [address] [place] [address] ALP [Catalytic activity/Vol] 43 U/L Normal 39-130 [facility] Comment on above: Performed By: #### C BCA, 4679-7, 43377-4, 09748-6, 2143-6, THYR, 2276-4, 2284-8, 2132-9, CMP, FEPR, 2532-0, 54302-3, 2777-1, 81360-9 #### [facility] ([id number]) [address] [facility], [address] [place] [address] ALT [Catalytic activity/Vol] 9 U/L Normal 0-31 [facility] Comment on above: Performed By: #### C BCA, 4679-7, 00788-3, 79811-8, 2143-6, THYR, 2276-4, 2284-8, 2132-9, CMP, FEPR, 2532-0, 18864-4, 2777-1, 01804-4 #### [facility] ([id number]) [address], [address] [place] [address] Anion gap [Moles/Vol] 5 mmol/L Normal 5-15 [facility] Comment on above: Performed By: #### C BCA, 4679-7, 21413-3, 88082-5, 2143-6, THYR, 2276-4, 2284-8, 2132-9, CMP, FEPR, 2532-0, 70189-2, 2777-1, 28987-0 #### [facility] ([id number]) [address] [facility], [address] [place] [address] AST [Catalytic activity/Vol] 12 U/L Normal 0-41 [facility] Comment on above: Performed By: #### C BCA, 4679-7, 04590-0, 55568-4, 2143-6, THYR, 2276-4, 2284-8, 2132-9, CMP, FEPR, 2532-0, 86857-3, 2777-1, 18544-7 #### [facility] ([id number]) [address] [facility], [address] [place] [address] Bilirubin [Mass/Vol] 0.3 mg/dL Normal 0.3-1.2 [facility] Comment on above: Performed By: #### C BCA, 4679-7, 60085-2, 62927-8, 2143-6, THYR, 2276-4, 2284-8, 2-9, CMP, FEPR, 2532-0, 84503-4, 2776-1, 14192-0 #### [facility] ([id number]) [address] [facility], [address] [place] [address] Calcium [Mass/Vol] 7.8 mg/dL Low 8.5-10.[address] [facility] Comment on above: Performed By: #### C BCA, 4679-7, 56388-5, 91255-1, 2143-6, THYR, 2276-4, 2284-8, 2-9, CMP, FEPR, 2532-0, 07212-3, 7-1, 08152-3 #### [facility] ([id number]) [address] [facility], [address] [place] [address] Chloride [Moles/Vol] 115 mmol/L High 98-109 [facility] Comment on above: Performed By: #### C BCA, 4679-7, 86410-3, 06955-7, 2143-6, THYR, 2276-4, 2284-8, 2132-9, CMP, FEPR, 2532-0, 68552-1, 2777-1, 74013-0 #### [facility] ([id number]) [address], [address] [place] [address] CO2 [Moles/Vol] 21 mmol/L Low 22-32 [facility] Comment on above: Performed By: #### C BCA, 4679-7, 71050-6, 22237-2, 2143-6, THYR, 2276-4, 2284-8, 2132-9, CMP, FEPR, 2532-0, 19983-6, 2777-1, 98627-8 #### [facility] ([id number]) [address], [address] [place] [address] Creatinine [Mass/Vol] 0.40 mg/dL Normal 0.40-1.00 [facility] Comment on above: Result Comment: METH OD TRACEABLE TO IDMS STANDARD Performed By: #### C BCA, 4679-7, 06941-0, 28671-4, 2143-6, THYR, 2276-4, 2284-8, 2132-9, CMP, FEPR, 2532-0, 83045-0, 2777-1, 68903-9 #### [facility] ([id number]) [address], [address] [place] [address] eGFR (CKD-EPI) NON-RACE DEPENDENT >90 Normal >59 [facility] Comment on above: Result Comment: Reported eGFR is based on the CKD-EPI 2020 equation that does not use a race coefficient. Performed By: #### C BCA, 4679-7, 00478-3, 87604-2, 2143-6, THYR, 2276-4, 2284-8, 2132-9, CMP, FEPR, 2532-0, 98025-8, 2777-1, 70176-4 #### [facility] ([id number]) [address], [address] [place] [address] Glucose [Mass/Vol] 91 mg/dL Normal 65-[address] [facility] Comment on above: Performed By: #### C BCA, 4679-7, 53699-4, 43017-2, 2143-6, THYR, 2276-4, 2284-8, 2132-9, CMP, FEPR, 2532-0, 88560-4, 2777-1, 91273-2 #### [facility] ([id number]) [address], [address] [place] [address] Potassium [Moles/Vol] 3.9 mmol/L Normal 3.5-5.0 [facility] Comment on above: Performed By: #### C BCA, 4679-7, 80815-6, 18325-1, 2143-6, THYR, 2276-4, 2284-8, 2132-9, CMP, FEPR, 2532-0, 88165-6, 2777-1, 55871-9 #### [facility] ([id number]) [address], [address] [place] [address] Protein [Mass/Vol] 4.4 g/dL Low 6.0-8.[address] [facility] Comment on above: Performed By: #### C BCA, 4679-7, 58740-3, 97856-7, 2143-6, THYR, 2276-4, 2284-8, 2132-9, CMP, FEPR, 2532-0, 33237-3, 2777-1, 91129-4 #### [facility] ([id number]) [address], [address] [place] [address] Sodium [Moles/Vol] 141 mmol/L Normal 134-[address] [facility] Comment on above: Performed By: #### C BCA, 4679-7, 16114-2, 40006-4, 2143-6, THYR, 2276-4, 2284-8, 2132-9, CMP, FEPR, 2532-0, 42668-7, 2777-1, 64566-3 #### [facility] ([id number]) [address], [address] [place] [address] Urea nitrogen [Mass/Vol] 5 mg/dL Normal 5-23 [facility] Comment on above: Performed By: #### C BCA, 4679-7, 96130-1, 33654-6, 2143-6, THYR, 2276-4, 2284-8, 213-9, CMP, FEPR, 2532-0, 47186-8, 7-1, 93452-2 #### [facility] ([id number]) [address], [address] [place] [address] Cortisol [Mass/Vol]on 2023 CORTISOL 1.5 ug/dL Normal [facility] Comment on above: Result Comment: Due to the diurnal variation of cortisol levels in normal subjects, all cortisol measurements should be referenced to the time of day of sample collection. AM Cortisol Age>=6 6.7-22.4 ug/dL PM Cortisol Age>=6 <10 ug/dL Performed By: #### C BCA, 4679-7, 27344-6, 69547-5, 2143-6, THYR, 2276-4, 2284-8, 2131-9, CMP, FEPR, 2532-0, 18785-0, 2776-1, 71865-7 #### [facility] ([id number]) [address], [address] [place] [address] FERRITINon 02-29-2024 Ferritin [Mass/Vol] 56 ng/mL Normal 11-307 [facility] Comment on above: Performed By: #### C BCA, 4679-7, 32877-2, 12795-8, 2143-6, THYR, 2276-4, 2284-8, 213-9, CMP, FEPR, 2532-0, 60295-6, 2777-1, 63247-0 #### [facility] ([id number]) [address], [address] [place] [address] Folate [Mass/Vol]on 02-29-20 24 FOLIC ACID 9.5 ng/mL Normal >5.8 [facility] Comment on above: Result Comment: NEW REFERENCE RANGE Performed By: #### C BCA, 4679-7, 45502-7, 13448-8, 2143-6, THYR, 2276-4, 2284-8, 213-9, CMP, FEPR, 2532-0, 79721-4, 7-1, 02973-7 #### [facility] ([id number]) [address], [address] [place] [address] Glucose Glucometer (BldC) [M ass/Vol]on 02-29-2024 Glucose [Mass/Vol] 88 mg/dL Normal 65-[address] [facility] Haptoglobin Nephelometry [Ma ss/Vol]on 02-29-2024 HAPTOGLOBIN 33 mg/dL Normal 32-228 [facility] Comment on above: Performed By: #### C BCA, 4679-7, 64390-5, 13736-6, 2143-6, THYR, 2276-4, 2284-8, 213-9, CMP, FEPR, 2532-0, 21675-2, 7-1, 14017-8 #### [facility] ([id number]) [address], [address] [place] [address] IRON PROFILEon 02-29-2024 Iron [Mass/Vol] 171 ug/dL High 50-170 [facility] Comment on above: Performed By: #### C BCA, 4679-7, 30851-4, 47889-0, 2143-6, THYR, 2276-4, 2284-8, 2132-9, CMP, FEPR, 2532-0, 44986-7, 2777-1, 52776-4 #### [facility] ([id number]) [address], [address] [place] [address] IRON BINDING 287 ug/dL Normal 250-425 [facility] Comment on above: Performed By: #### C BCA, 4679-7, 61596-5, 04252-9, 2143-6, THYR, 2276-4, 2284-8, 2132-9, CMP, FEPR, 2532-0, 68667-7, 2777-1, 22946-0 #### [facility] ([id number]) [address], [address] [place] [address] IRON SATURATION 60 % SATURATION High 15-50 [facility] Comment on above: Performed By: #### C BCA, 4679-7, 08514-4, 48190-3, 2143-6, THYR, 2276-4, 2284-8, 2132-9, CMP, FEPR, 2532-0, 07272-5, 7-1, 51654-0 #### [facility] ([id number]) [address], [address] [place] [address] LDH [Catalytic activity/Vol] on 02-29-2024 LDH 124 U/L Normal 100-235 [facility] Comment on above: Performed By: #### C BCA, 4679-7, 26114-2, 70452-3, 2143-6, THYR, 2276-4, 2284-8, 2-9, CMP, FEPR, 2532-0, 99914-6, 7-1, 92857-5 #### [facility] ([id number]) [address], [address] [place] [address] Lactate (P carola) [Moles/Vol]o n 02-29-2024 LACTATE W/REFLEX 1.1 mmol/L Normal 0.4-2.0 [facility] Comment on above: Result Comment: Result did not trigger repeat Lactate, re-order if needed. Performed By: #### C BCA, 4679-7, 56117-8, 88364-9, 2143-6, THYR, 2276-4, 2284-8, 2132-9, CMP, FEPR, 2532-0, 90539-5, 2776-1, 82130-3 #### [facility] ([id number]) [address], [address] [place] [address] MAGNESIUMon 02-29-2024 Magnesium [Mass/Vol] 1.6 mg/dL Low 1.8-2.6 [facility] Comment on above: Performed By: #### C MINNIE, 4679-7, 67933-8, 68996-1, 2143-6, THYR, 2276-4, 2284-8, 2131-9, CMP, FEPR, 2532-0, 59761-8, 2776-, 81736-1 #### [facility] ([id number]) Formerly [facility], [facility], [address] [place] [address] PHOSPHORUSon 02-29-2024 Phosphate [Mass/Vol] 2.2 mg/dL Low 2.4-4.9 [facility] Comment on above: Performed By: #### C MINNIE, 4679-7, 29989-8, 62756-9, 2143-6, THYR, 2276-4, 2284-8, 2131-9, CMP, FEPR, 2532-0, 42314-0, 2776-1, 40984-5 #### [facility] ([id number]) [address] [address] [address], [address] [place] [address] Reticulocytes/100 RBC (Bld)o n 02-29-2024 RETICULOCYTE COUNT 1.4 % Normal 0.4-2.[address] [facility] Comment on above: Performed By: #### C MINNIE, 4679-7, 29272-4, 80018-2, 2143-6, THYR, 2276-4, 2284-8, 2132-9, CMP, FEPR, 2532-0, 84870-4, 7-1, 34127-8 #### [facility] ([id number]) [address], [address] [place] [address] THYROID PROFILEon 02-29-2024 Free T4 [Mass/Vol] 0.83 ng/dL Normal 0.61-1.[address] [facility] Comment on above: Performed By: #### C BCA, 4679-7, 01441-6, 00441-0, 2143-6, THYR, 2276-4, 2284-8, 2132-9, CMP, FEPR, 2532-0, 10398-3, 2777-1, 44107-9 #### [facility] ([id number]) [address], [address] [place] [address] TSH 11.84 uIU/mL High 0.49-4.67 [facility] Comment on above: Performed By: #### C BCA, 4679-7, 89293-5, 43981-1, 2143-6, THYR, 2276-4, 2284-8, 2132-9, CMP, FEPR, 2532-0, 20427-7, 2777-1, 40628-6 #### [facility] ([id number]) [address] [address], [address] [place] [address] Troponin I.cardiac High sens itivity method [Mass/Vol]on 02-29-2024 1 HOUR TROP I, HIGH SENSITIVITY <2 Normal <16 [facility] Comment on above: Performed By: #### C BCA, 4679-7, 11210-1, 32214-2, 2143-6, THYR, 2276-4, 2284-8, 2132-9, CMP, FEPR, 2532-0, 24473-2, 2777-1, 44520-7 #### [facility] ([id number]) [address], [address] [place] [address] TROPONIN I, HIGH SENSITIVITY <2 Normal <16 [facility] Comment on above: Performed By: #### C BCA, 4679-7, 92782-9, 75069-5, 2143-6, THYR, 2276-4, 2284-8, 2132-9, CMP, FEPR, 2532-0, 26841-7, 2777-1, 84036-0 #### [facility] ([id number]) [address] [address], [address] [place] [address] VITAMIN B12on 02-29-2024 Cobalamin (Vitamin B12) [Mass/Vol] 125 pg/mL Low 180-914 [facility] Comment on above: Performed By: #### C BCA, 4679-7, 14552-7, 07691-1, 2143-6, THYR, 2276-4, 2284-8, 2132-9, CMP, FEPR, 2532-0, 32871-0, 2777-1, 61349-0 #### [facility] ([id number]) [address], [address] [place] [address] ED Clinical Summaryon 2023 ED Clinical Summary [facility] Emergency Department [address] [place] [address] ED Clinical Summary PERSON INFORMATION Name: MAYELIN TAYLOR Age: 23 Years Sex: FEMALE : 2000 MRN: Acct#: Visit Reason: Vaginal bleeding - < 20 wks ; POSS MISCARRIGE Arrival: 02/26/2024 18:28:31 Discharge: 02/26/2024 20:06:00 LOS: 000 01:38 Check In: 02/26/2024 18:28:31 Checkout:02/26/2024 20:06:00 Address: [address] [address] PCP: Provider, None PROVIDER INFORMATION Provider Role Assigned Unassigned Scott Toney MD ED Provider 02/26/2024 18:34:07 Cathleen Whitney PROGRAM MANAGEMENT INTERN Nurse 02/26/2024 18:46:23 VITALS INFORMATION Vital Sign Triage Latest Temperature Tympanic Temperature Temporal Artery Pulse Rate O2 Sat 98 % 98 % Respiratory Rate 16 br/min 16 br/min Blood Pressure /73 mmHg /73 mmHg MEDICAL INFORMATION Medications Given: Medication Dose Route ketorolac 10 mg Oral Allergy Information: No known allergies PHYSICIAN DOCUMENTATION Patient: MAYELIN TAYLOR Age: 23 years Sex: FEMALE : 2000 Associated Diagnoses: demise before 20 weeks with retention of fetus; Incomplete miscarriage Author: Scott Toney MD Basic Information Time seen: Date & time 02/26/2024 18:41:00. History source: Patient. Arrival mode: Private vehicle. History limitation: None. History of Present Illness The patient presents with vaginal bleeding. presents with vaginal bleed. 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 US with 5wk demise. 10 wk gestation. At work today. Vaginal bleed and pelvic cramping. Using tampons. Advised to use pads Review of Systems Additional review of systems information: All other systems reviewed and otherwise negative, All systems reviewed as documented in chart. Health Status Allergies: No active allergies have been recorded.. Past Medical/ Family/ Social History Medical history: No active or resolved past medical history items have been selected or recorded., Reviewed as documented in chart. Surgical history: No active procedure history items have been selected or recorded., Reviewed as documented in chart. Family history: No family history items have been selected or recorded., Reviewed as documented in chart. Social history: Social & Psychosocial Habits No Data Available , Reviewed as documented in chart. Problem list: No qualifying data available , per nurse's notes. Physical Examination Vital Signs Vital Signs 02/26/2024 18:30 EDT Temperature Oral 37.0 DegC Heart Rate Monitored 86 bpm Respiratory Rate 16 br/min Systolic Blood Pressure 107 mmHg Diastolic Blood Pressure 73 mmHg SpO2 98 % Oxygen Therapy Room air . General: Alert, no acute distress. Skin: Warm, dry, intact. Head: Normocephalic, atraumatic. Eye: Normal conjunctiva. Cardiovascular: Regular rate and rhythm, No murmur, Normal peripheral perfusion, No edema. Respiratory: Lungs are clear to auscultation, respirations are non-labored, breath sounds are equal. Gastrointestinal: Soft, Non distended, Normal bowel sounds, Tenderness: Mild, suprapubic. Back: Normal range of motion. Musculoskeletal: Normal ROM, normal strength. Neurological: Alert and oriented to person, place, time, and situation, No focal neurological deficit observed. Medical Decision Making Differential Diagnosis: Vaginal bleeding, threatened , incomplete . Orders Launch Orders Radiology: US Limited (Order): 02/26/2024 18:57 EDT Stat, first trimester bleed. hx of demise, Allow Modification Per Radiologist, Transport Mode: Wheelchair, Launch Orders Pharmacy: ketorolac (Order): 10 mg, Oral, Once. Reexamination/ Reevaluation MDM: see above ddx Medical decision: stable with vaginal bleed. Rh+. Known demise at 5wk. Scheduled for d/c 03/08/24 Vag bleed today. Workup: Pelv US shows still retained product. Prelim US - still has product in uterus. ovaries neg. dispo: stable for OP f/u discussed with patient. 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 Disposition: Discharged: Time 02/26/2024 19:49:00, to home. Prescriptions: Launch prescriptions Pharmacy: ketorolac 10 mg oral tablet (Prescribe): 10 mg = 1 tab(s), Oral, TID, for 5 day(s), PRN: for pain, 15 tab(s), 0 Refill(s). Patient was given the following educational materials: Incomplete Miscarriage, Incomplete Miscarriage. Follow up with: ; Follow up with specialist Within 3 to 5 days Take ketorolac as needed for pain - every 6-8hr. May take Tylenol every 6hr as needed for pain. Contact CLAMSHELL OPERATOR for follow up. Return to ER as needed for any concerns. Counseled: Patient, Regarding diagnosis, Regarding diagnostic results, Regarding treatment plan, Re (more content not included)... Normal [facility] ED Note - Physicianon 2023 ED Note - Physician Patient: MAYELIN TAYLOR Age: 23 years Sex: FEMALE : 2000 Associated Diagnoses: demise before 20 weeks with retention of fetus; Incomplete miscarriage Author: Scott Toney MD Basic Information Time seen: Date & time 02/26/2024 18:41:00. History source: Patient. Arrival mode: Private vehicle. History limitation: None. History of Present Illness The patient presents with vaginal bleeding. presents with vaginal bleed. 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 US with 5wk demise. 10 wk gestation. At work today. Vaginal bleed and pelvic cramping. Using tampons. Advised to use pads Review of Systems Additional review of systems information: All other systems reviewed and otherwise negative, All systems reviewed as documented in chart. Health Status Allergies: No active allergies have been recorded.. Past Medical/ Family/ Social History Medical history: No active or resolved past medical history items have been selected or recorded., Reviewed as documented in chart. Surgical history: No active procedure history items have been selected or recorded., Reviewed as documented in chart. Family history: No family history items have been selected or recorded., Reviewed as documented in chart. Social history: Social & Psychosocial Habits No Data Available , Reviewed as documented in chart. Problem list: No qualifying data available , per nurse's notes. Physical Examination Vital Signs Vital Signs 02/26/2024 18:30 EDT Temperature Oral 37.0 DegC Heart Rate Monitored 86 bpm Respiratory Rate 16 br/min Systolic Blood Pressure 107 mmHg Diastolic Blood Pressure 73 mmHg SpO2 98 % Oxygen Therapy Room air . General: Alert, no acute distress. Skin: Warm, dry, intact. Head: Normocephalic, atraumatic. Eye: Normal conjunctiva. Cardiovascular: Regular rate and rhythm, No murmur, Normal peripheral perfusion, No edema. Respiratory: Lungs are clear to auscultation, respirations are non-labored, breath sounds are equal. Gastrointestinal: Soft, Non distended, Normal bowel sounds, Tenderness: Mild, suprapubic. Back: Normal range of motion. Musculoskeletal: Normal ROM, normal strength. Neurological: Alert and oriented to person, place, time, and situation, No focal neurological deficit observed. Medical Decision Making Differential Diagnosis: Vaginal bleeding, threatened , incomplete . Orders Launch Orders Radiology: US Limited (Order): 02/26/2024 18:57 EDT Stat, first trimester bleed. hx of demise, Allow Modification Per Radiologist, Transport Mode: Wheelchair, Launch Orders Pharmacy: ketorolac (Order): 10 mg, Oral, Once. Reexamination/ Reevaluation MDM: see above ddx Medical decision: stable with vaginal bleed. Rh+. Known demise at 5wk. Scheduled for d/c 03/08/24 Vag bleed today. Workup: Pelv US shows still retained product. Prelim US - still has product in uterus. ovaries neg. dispo: stable for OP f/u discussed with patient. 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 Disposition: Discharged: Time 02/26/2024 19:49:00, to home. Prescriptions: Launch prescriptions Pharmacy: ketorolac 10 mg oral tablet (Prescribe): 10 mg = 1 tab(s), Oral, TID, for 5 day(s), PRN: for pain, 15 tab(s), 0 Refill(s). Patient was given the following educational materials: Incomplete Miscarriage, Incomplete Miscarriage. Follow up with: ; Follow up with specialist Within 3 to 5 days Take ketorolac as needed for pain - every 6-8hr. May take Tylenol every 6hr as needed for pain. Contact CLAMSHELL OPERATOR for follow up. Return to ER as needed for any concerns. Counseled: Patient, Regarding diagnosis, Regarding diagnostic results, Regarding treatment plan, Regarding prescription, Patient indicated understanding of instructions. Notes: O+ type - no rhogam needed. [Electronically Signed on: 02/26/2024 19:54 EDT] Scott Toney MD [Verified on: 02/26/2024 19:54 EDT] Scott Toney MD [facility] ED Note-Nursingon 02-26-2024 ED Note-Nursing Patient arrives with c/o vaginal bleeding since noon and is 8 weeks . Patient states that she saturated 3-4 pads before coming in today, had to wait until she was off of work. 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 Patient states she has thyroid issues and did not know until this , does not take any medication. Patient is A+Ox4. Normal [facility] ED Patient Summaryon 024 ED Patient Summary [facility] - Emergency Department [address] [place] [address] PATIENT DISCHARGE INSTRUCTIONS Patient Information Name: MAYELIN TAYLOR Age: 23 Years Date of : 2000 Reason For Visit: Vaginal bleeding - < 20 wks ; POSS MISCARRIGE Arrival Time: 02/26/2024 18:28:31 Primary Care Physician: Provider, None Attending Physician: Scott Toney MD Comment: Visit Diagnosis: Diagnoses This Visit demise before 20 weeks with retention of fetus (O02.1) Incomplete miscarriage (O03.4) Vaginal bleeding - < 20 wks ([id number]) The Pharmacy at [facility] is open Friday through Friday from 9A to 6P and Friday and Friday from 9A to 5P Prescription Information: If you have been given a prescription for narcotics, seek immediate medical attention if you have any difficulty breathing or any sudden status changes such as confusion and sleepiness. If you or anyone you know is experiencing suicidal thoughts, mental health, alcohol and/or drug addiction problems; contact the [facility] 03/03 Crisis Hotline -Text 5ERTC lq 900703. If you received any narcotics, sedation, or any other medication that causes drowsiness for the next 24 hours, unless otherwise directed: ? Do not drive a car. ? Do not operate machinery such as power tools, lawn mowers, drills, sewing machines, or stoves ? Avoid alcoholic beverages and drugs for allergies, nerves, or sleep ? Do not make important personal or business decisions or sign any legal documents With: Address: When: Follow up with specialist Within 3 to 5 days Comments: Take ketorolac as needed for pain - every 6-8hr. May take Tylenol every 6hr as needed for pain. Contact CLAMSHELL OPERATOR for follow up. Return to ER as needed for any concerns Medication Information: The exam and treatment you received today in the [facility] Emergency Department were for an urgent problem and are not intended as complete care. It is important for you to follow up with a doctor, nurse practitioner, or physician?s first assistant manager for ongoing care. If your symptoms become worse or you do not improve as expected and you are unable to reach your usual health care provider, you should return to the Emergency Department, we are available 24 hours a day. For those patients who have received Radiology results, the interpretation of your X-ray as given to you by our Emergency Department physician is only a preliminary report. The Radiologist will review your films and if there is a change in the diagnosis you will be notified by phone. Please make sure you have provided a working phone number so we can reach you if necessary. In the event that you had a lab culture while you were a patient in the Emergency Department, you will be notified by phone if there is a need to change your antibiotic. Please make sure you have provided a working phone number so we can reach you if necessary. [facility] Emergency Department has provided you with a complete list of medications post discharge. Please inform your pharmacy technician/provider of your visit and for further instruction on these medications. Any specific questions regarding your chronic medications and dosages should be discussed with your primary care physician(s) and/or pharmacist. New Medications Printed Prescriptions ketorolac (ketorolac 10 mg oral tablet) 1 tab(s) Oral (given by mouth) 3 times per day as needed for pain for 5 Days. Refills: 0. Visit Information Allergies: Substance Reaction Symptoms Type Comments No known allergies Drug Vital Signs: Vitals and Measurements this Visit (last charted value for your 02/26/2024 visit) Vital Signs This Visit Temperature Oral: 37.0 DegC Heart Rate Monitored: 86 bpm Respiratory Rate: 16 br/min Systolic Blood Pressure: 107 mmHg Diastolic Blood Pressure: 73 mmHg SpO2: 98 % Oxygen Therapy: Room air Measurements This Visit Height/Length Measured: 160 cm Weight Measured: 88 kg Weight Dosin.000 kg Body Mass Index: 34.38 kg/m2 Problems List: Problem Onset Comments No Problems found Patient Education Incomplete Miscarriage An incomplete miscarriage happens when tissue from or part of the placenta, known as products of conception, remain in the body after a miscarriage. A miscarriage is the loss of before the 20th week. Most miscarriages happen in the first 3 months of . Sometimes, a miscarriage happens before a woman knows she is . Having a miscarriage can be an emotional experience. If you have had a miscarriage, talk with your health care provider about any questions you may have about: ? The loss of your baby. ? The grieving process. ? Your future plans. What are the causes? Many times, the cause of an incomplete miscarriage is not known. What increases (more content not included)... Normal [facility] US Limitedon 02-25 US Limited EXAM: US Limited HISTORY: first trimester bleed. hx of demise COMPARISON: None. TECHNIQUE: Transabdominal ultrasound of the pelvis with grayscale and Doppler interrogation FINDINGS: The uterus measured 9.71 cm in length x 4.60 cm AP x 6.23 cm transverse. On the images obtained, there appears to be hypoechoic blood products surrounding a 2.2 cm gestational sac. No pole or secondary yolk sac is seen. The right ovary measures 3.31 x 2.47 x 1.82 cm and the left ovary measures 3.80 x 2.57 x 2.40 cm. Blood flow within each ovary documented with color Doppler with normal arterial waveforms. No free fluid is seen within the pelvis. IMPRESSION: 1. Evidence for blood products distending the endometrial canal surrounding a retained gestational sac. No pole is seen, consistent with the clinical history of demise. 2. Normal ovaries. Final Dictated by: Zaira Del Cid MD Dictated DT/TM: 02/26/24 8:47 Signed (Electronic Signature): Zaira Del Cid MD 02/26/24 8:57 pm Technologist: PM Normal [facility] Chlamydia/GC DNA, Uron 02-04 Chlamydia Probe, Ur Negative Normal [facility] Comment on above: Result Comment: CHLA MYDIA TRACHOMATIS DNA not detected by nucleic acid amplification. This test is intended for medical purposes only and is not valid for the evaluation of suspected sexual abuse or for other forensic purposes. In certain contexts, culture may be required to meet applicable laws and regulations for diagnosis of C. trachomatis and N. gonorrhoeae infections. Per 2014 CDC recommendations, this test does not include confirmation of positive results by an alternative nucleic acid target. Performed By: #### U CGP #### [facility] [address] [place] [id number] Instructional Design Manager: Ferdinand Avelar MD Gonorrhea Probe, Ur Negative Normal NEG [facility] Comment on above: Result Comment: NEIS SERIA GONORRHOEAE DNA not detected by nucleic acid amplification. This test is intended for medical purposes only and is not valid for the evaluation of suspected sexual abuse or for other forensic purposes. In certain contexts, culture may be required to meet applicable laws and regulations for diagnosis of C. trachomatis and N. gonorrhoeae infections. Per 2014 CDC recommendations, this test does not include confirmation of positive results by an alternative nucleic acid target. Performed By: #### U CGP #### [address] [id number] Instructional Design Manager: Ferdinand Avelar MD Cult,Urineon 02-05-2024 Cult,Urine Specimen Description .CLEAN CATCH URINE Special Requests Site: Urine Culture NO GROWTH Report Status FINAL 02/05/[address] [facility] Comment on above: Performed By: #### U RC #### [address] [address] Instructional Design Manager: Ferdinand Avelar MD [facility] [address] [place] [address] Instructional Design Manager: Zaira Lizarraga MD HIV Ag/Abon 02-05-2024 HIV Ag/Ab Non-Reactive Normal NR [facility] Comment on above: Result Comment: No l aboratory evidence of HIV infection. If acute HIV infection is suspected, consider testing for HIV-1 RNA. Performed By: #### H IVCMB, GLYHGB, AHCV #### [facility] [address] [place] [address] [id number] Instructional Design Manager: Ferdinand Avelar MD HIV Screenon 02-05-2024 HIV 1+2 Ab+HIV1 p24 Ag IA Ql Non-Reactive NONREACTIVE [facility] Comment on above: No laboratory eviden ce of HIV infection. If acute HIV infection is suspected, consider testing for HIV-1 RNA. [facility] Hemoglobin A1Con 02-05-2024 Glucose [Mass/Vol] 100 mg/dL Normal [facility] Comment on above: Result Comment: The ADA and AACC recommend providing the estimated average glucose result to permit better patient understanding of their HBA1c result. Performed By: #### H IVCMB, GLYHGB, AHCV #### [facility] [address] [place], [place] [id number] Instructional Design Manager: Ferdinand Avelar MD HbA1c (Bld) [Mass fraction] 5.1 % Normal 4.0-6.0 [facility] Comment on above: Performed By: #### H IVCMB, GLYHGB, AHCV #### [facility] [address] [place] [id number] Instructional Design Manager: Ferdinand Avelar MD Hep C Abon 02-05-2024 Hep C Ab Non-Reactive Normal NR [facility] Comment on above: Result Comment: The hepatitis C procedure used in our laboratory is a Chemiluminescent test specific for three recombinant HCV antigens. A negative anti-HCV result indicates that the antibodies to hepatitis C virus are not present at this time. Individuals with reactive anti-HCV should be considered infected and infectious until proven otherwise. Confirmation of all equivocal or reactive results is recommended by ordering HCV RNA by PCR. Performed By: #### H IVCMB, GLYHGB, AHCV #### [facility] [address] [place] [address] Instructional Design Manager: Ferdinand Avelar MD Hepatitis C Antibodyon 02-04 HCV Ab IA Ql Non-Reactive NONREACTIVE [facility] Comment on above: The hepatitis C procedure used in our laboratory is a Chemiluminescent test specific for three recombinant HCV antigens. A negative anti-HCV result indicates that the antibodies to hepatitis C virus are not present at this time. Individuals with reactive anti-HCV should be considered infected and infectious until proven otherwise. Confirmation of all equivocal or reactive results is recommended by ordering HCV RNA by PCR. [facility] Profileon T.pallidum Ab Screen Non-Reactive Normal NR [facility] Comment on above: Result Comment: T. pallidum antibodies are not detected. There is no serological evidence of infection with T. pallidum (early primary syphilis cannot be excluded). Retest in 2-4 weeks if syphilis is clinically suspect. Performed By: #### P RENAT #### [facility] [address] [place], [place] [address] Instructional Design Manager: Ferdinand Avelar MD [facility] [address] [place] [address] Instructional Design Manager: Zaira Lizarraga MD Profile Ion 024 Basophils (Bld) [#/Vol] 0.03 10*3/uL [facility] Basophils/100 WBC (Bld) 0 % 0 - 2 % [facility] Eosinophils (Bld) [#/Vol] 0.08 10*3/uL [facility] Eosinophils/100 WBC (Bld) 1 % 1 - 4 % [facility] Erythrocyte distribution width (RBC) [Ratio] 14.6 % High 11.8 - 14.4 % [facility] HBV surface Ag IA Ql Non-Reactive NONREACTIVE [facility] Hematocrit (Bld) [Volume fraction] 34.6 % Low 36.3 - 47.1 % [facility] Hemoglobin (Bld) [Mass/Vol] 11.8 g/dL Low 11.9 - 15.1 g/dL [facility] Immature granulocytes (Bld) [#/Vol] [facility] Immature granulocytes/100 WBC (Bld) 0 % 0 [facility] Interpretation and review of laboratory results Abnormal [facility] Lymphocytes/100 WBC (Bld) 31 % 24 - 43 % [facility] Lymphocytes/100 WBC (Bld) 2.35 % [facility] MCH (RBC) [Entitic mass] 30.1 pg 25.2 - 33.5 pg [facility] MCHC (RBC) [Mass/Vol] 34.1 g/dL 28.4 - 34.8 g/dL [facility] MCV (RBC) [Entitic vol] 88.3 fL 82.6 - 102.9 fL [facility] Monocytes/100 WBC (Bld) 8 % 3 - 12 % [facility] Monocytes/100 WBC (Bld) 0.58 % [facility] Neutrophils/100 WBC (Bld) 60 % 36 - 65 % [facility] Nucleated RBC/100 WBC (Bld) [Ratio] 0.0 % 0.0 per 100 WBC [facility] Platelet mean volume (Bld) [Entitic vol] 10.5 fL 8.1 - 13.5 fL [facility] Platelets (Bld) [#/Vol] 372 10*3/uL [facility] RBC (Bld) [#/Vol] 3.92 10*6/uL Low 3.95 - 5.11 m/uL [facility] Rubella virus IgG IA Ql 59.7 IU/mL [facility] Comment on above: <10 NON REACTIVE Negative for Anti-Rubella IgG >=10 REACTIVE Positive for Anti Rubella IgG The presence of IgG antibody to Rubella virus is an indication of previous exposure either by prior infection or vaccination. Segmented neutrophils/100 WBC (Bld) 4.53 % [facility] T. pallidum Ab IA Ql (S) Non-Reactive NONREACTIVE [facility] Comment on above: T. pallidum antibodies are not detected. There is no serological evidence of infection with T. pallidum (early primary syphilis cannot be excluded). Retest in 2-4 weeks if syphilis is clinically suspect. WBC other (Bld) [#/Vol] 7.6 [facility] T4, 02-05-2024 Free T4 [Mass/Vol] 0.8 ng/dL Low 0.92 - 1. 68 ng/dL [facility] Interpretation and review of laboratory results Abnormal [facility] Thyroxine, 02-05-2024 Thyroxine, Free 0.8 ng/dL Low 0.92-1.68 [facility] Comment on above: Performed By: #### T SHX #### [facility] [address] [place] [address] Instructional Design Manager: Zaira Lizarraga MD #### FT4 #### [id number] [place], [place] [id number] Instructional Design Manager: Ferdinand Avelar MD TYPE AND SCREENon 0 02-04-2024 ABO and Rh group Nom (Bld) Blood group O Rh(D) positive [facility] Blood group antibodies identified Nom Negative [facility] Profileon Hep B Surf Ag Non-Reactive Normal NR [facility] Comment on above: Performed By: #### P RENAT #### [address] [address] Instructional Design Manager: Ferdinand Avelar MD [facility] [address] [place] [address] Dr. [place] [phone] Instructional Design Manager: Zaira Lizarraga MD Rubella Ab, IgG 59.7 IU/mL Normal [facility] Comment on above: Result Comment: <10 NON REACTIVE Negative for Anti-Rubella IgG >=10 REACTIVE Positive for Anti Rubella IgG The presence of IgG antibody to Rubella virus is an indication of previous exposure either by prior infection or vaccination. Performed By: #### P RENAT #### [address] [address] Instructional Design Manager: Ferdinand Avelar MD [facility] [address] [place] [address] Dr. [place] [phone] Instructional Design Manager: Zaira Lizarraga MD Abs. Basophil 0.03 k/uL Normal 0.00-0.20 [facility] Comment on above: Performed By: #### P RENAT #### [address] [address] Instructional Design Manager: Ferdinand Avelar MD [facility] [address] [place] [address] [place] [address] Instructional Design Manager: Zaira Lizarraga MD Abs.Imm.Granulocyte <0.03 Normal 0.00-0.30 [facility] Comment on above: Performed By: #### P RENAT #### [address] [address] Instructional Design Manager: Ferdinand Avelar MD [address] [place] [phone] Instructional Design Manager: Zaira Lizarraga MD Abs.Neutrophil (Seg) 4.53 k/uL Normal 1.50-8.10 [facility] Comment on above: Performed By: #### P RENAT #### [address] [address] Instructional Design Manager: Ferdinand Avelar MD [address] [place] [phone] Instructional Design Manager: Zaira Lizarraga MD Basophils/100 WBC (Bld) 0 % Normal 0-2 [facility] Comment on above: Performed By: #### P RENAT #### [address] [address] Instructional Design Manager: Ferdinand Avelar MD [address] [place] [phone] Instructional Design Manager: Zaira Lizarraga MD Eosinophils (Bld) [#/Vol] 0.08 10*3/uL Normal 0.00-0.44 [facility] Comment on above: Performed By: #### P RENAT #### [address] [address] Instructional Design Manager: Ferdinand vAelar MD [facility] [address] [place] [address] [place] [address] Instructional Design Manager: Zaira Lizarraga MD Eosinophils/100 WBC (Bld) 1 % Normal 1-4 [facility] Comment on above: Performed By: #### P RENAT #### [address] [address] Instructional Design Manager: Ferdinand Avelar MD [facility] [address] [place] [address] [place] [address] Instructional Design Manager: Zaira Lizarraga MD Erythrocyte distribution width (RBC) [Ratio] 14.6 % High 11.8-14.4 [facility] Comment on above: Performed By: #### P RENAT #### [facility] [address] [place] [address] Instructional Design Manager: Ferdinand Avelar MD [facility] [address] [place] [address] Dr. [place] [phone] Instructional Design Manager: Zaira Lizarraga MD Hematocrit (Bld) [Volume fraction] 34.6 % Low 36.3-47.1 [facility] Comment on above: Performed By: #### P RENAT #### [address] [place] [address] Instructional Design Manager: Ferdinand Avelar MD [address] [place] [phone] Instructional Design Manager: Zaira Lizarraga MD Hemoglobin (Bld) [Mass/Vol] 11.8 g/dL Low 11.9-15.1 [facility] Comment on above: Performed By: #### P RENAT #### [address] [place] [address] Instructional Design Manager: Ferdinand Avelar MD [facility] [address] [place] [address] Dr. [place] [phone] Instructional Design Manager: Zaira Lizarraga MD Immature granulocytes/100 WBC (Bld) 0 % Normal 0 [facility] Comment on above: Performed By: #### P RENAT #### [address] [address] Instructional Design Manager: Ferdinand Avelar MD [facility] [address] [place] [address] Dr. [place] [phone] Instructional Design Manager: aZira Lizarraga MD Lymphocytes (Bld) [#/Vol] 2.35 10*3/uL Normal 1.10-3.70 [facility] Comment on above: Performed By: #### P RENAT #### [address] [place] [address] Instructional Design Manager: Ferdinand Avelar MD [address] [place] [address] Instructional Design Manager: Zaira Lizarraga MD Lymphocytes/100 WBC (Bld) 31 % Normal 24-43 [facility] Comment on above: Performed By: #### P RENAT #### [address] [address] Instructional Design Manager: Ferdinand Avelar MD [address] [place] [address] Instructional Design Manager: Zaira Lizarraga MD MCH (RBC) [Entitic mass] 30.1 pg Normal 25.2-33.5 [facility] Comment on above: Performed By: #### P RENAT #### [address] [address] Instructional Design Manager: Ferdinand Avelar MD [address] [place] [phone] Instructional Design Manager: Zaira Lizarraga MD MCHC (RBC) [Mass/Vol] 34.1 g/dL Normal 28.4-34.8 [facility] Comment on above: Performed By: #### P RENAT #### [address] [address] Instructional Design Manager: Ferdinand Avelar MD [address] [place] [phone] Instructional Design Manager: Zaira Lizarraga MD MCV (RBC) [Entitic vol] 88.3 fL Normal 82.6-102.9 [facility] Comment on above: Performed By: #### P RENAT #### [address] [address] Instructional Design Manager: Ferdinand Avelar MD [address] [place] [address] Instructional Design Manager: Zaira Lizarraga MD Monocytes (Bld) [#/Vol] 0.58 10*3/uL Normal 0.10-1.20 [facility] Comment on above: Performed By: #### P RENAT #### [address] [address] Instructional Design Manager: Ferdinand Avelar MD [facility] [address] [place] [address] Dr. [place] [phone] Instructional Design Manager: Zaira Lizarraga MD Monocytes/100 WBC (Bld) 8 % Normal 3-12 [facility] Comment on above: Performed By: #### P RENAT #### [address] [address] Instructional Design Manager: Ferdinand Avelar MD [facility] [address] [place] [address] Dr. [place] [phone] Instructional Design Manager: Zaira Lizarraga MD Neutrophil (Seg) 60 % Normal 36-65 [facility] Comment on above: Performed By: #### P RENAT #### [address] [address] Instructional Design Manager: Ferdinand Avelar MD [address] [place] [address] Instructional Design Manager: Zaira Lizarraga MD NRBC Automated 0.0 per [address] [facility] Comment on above: Performed By: #### P RENAT #### [address] [address] Instructional Design Manager: Ferdinand Avelar MD [facility] [address] [place] [address] [place] [phone] Instructional Design Manager: Zaira Lizarraga MD Platelet mean volume (Bld) [Entitic vol] 10.5 fL Normal 8.1-13.5 [facility] Comment on above: Performed By: #### P RENAT #### [address] [address] Instructional Design Manager: Ferdinand Avelar MD [facility] [address] [place] [address] Dr. [place], [place] [phone] Instructional Design Manager: Zaira Lizarraga MD Platelets (Bld) [#/Vol] 372 10*3/uL Normal 138-453 [facility] Comment on above: Performed By: #### P RENAT #### [address] [place] [address] Instructional Design Manager: Ferdinand Avelar MD [address] [place] [phone] Instructional Design Manager: Zaira Lizarraga MD RBC (Bld) [#/Vol] 3.92 10*6/uL Low 3.95-5.11 [facility] Comment on above: Performed By: #### P RENAT #### [address] [address] Instructional Design Manager: Ferdinand Avelar MD [address] [place] [phone] Instructional Design Manager: Zaira Lizarraga MD WBC (Bld) [#/Vol] 7.6 10*3/uL Normal 3.5-11.3 [facility] Comment on above: Performed By: #### P RENAT #### [address] [address] Instructional Design Manager: Ferdinand Avelar MD [address] [address] Instructional Design Manager: Zaira Lizarraga MD Type + Scrnon 02-03 Type + Scrn Negative Normal [facility] Comment on above: Performed By: #### P RTYS #### [address] [place], [place] [phone] Instructional Design Manager: Zaira Lizarraga MD TSH w/reflex to FT4on 2023 Thyroid Stim. Horm. 6.24 uIU/mL High 0.30-5.00 [facility] Comment on above: Performed By: #### T SHX #### [facility] [address] [place] [address] Instructional Design Manager: Zaira Lizarraga MD #### FT4 #### [facility] [address] [place] [address] Instructional Design Manager: Ferdinand Avelar MD TSH with Reflexon 02-04-2024 Interpretation and review of laboratory results Abnormal [facility] TSH Qn 6.24 m[IU]/L High [facility] CBC AND AUTO DIFFon 01-03-20 ABSOLUTE BASOPHIL 0.0 X10E9/L Normal 0.0-0.2 [facility] Comment on above: Performed By: #### C MINNIE [facility], #### [facility] ([id number]) [address] [place] [address] ABSOLUTE NEUTROPHIL 4.3 X10E9/L Normal 1.5-6.6 [facility] Comment on above: Performed By: #### Isabel HARTMAN [facility], #### [facility] ([id number]) [address] [place] [address] Basophils/100 WBC (Bld) 0.4 % Normal [facility] Comment on above: Performed By: #### Isabel HARTMAN [facility], #### [facility] ([id number]) [address] [place] [address] Eosinophils (Bld) [#/Vol] 0.1 10*3/uL Normal 0.0-0.4 [facility] Comment on above: Performed By: #### Isabel HARTMAN CMP, #### [facility] ([id number]) [address] [place] [address] Eosinophils/100 WBC (Bld) 0.9 % Normal [facility] Comment on above: Performed By: #### Isabel HARTMAN CMP, #### [facility] ([id number]) [address] [place] [address] Erythrocyte distribution width (RBC) [Ratio] 15.0 % Normal 11.5-15.0 [facility] Comment on above: Performed By: #### Isabel HARTMAN CMP, #### [facility] ([id number]) [address] [place] [address] Hematocrit (Bld) [Volume fraction] 38.0 % Normal 35-47 [facility] Comment on above: Performed By: #### Isabel HARTMAN CMP, #### [facility] ([id number]) [address] [place] [address] Hemoglobin (Bld) [Mass/Vol] 12.9 g/dL Normal 11.7-15.5 [facility] Comment on above: Performed By: #### Isabel HARTMAN [facility], #### [facility] ([id number]) [address] [place] [address] Lymphocytes (Bld) [#/Vol] 0.8 10*3/uL Low 1.0-3.5 [facility] Comment on above: Performed By: #### Isabel HARTMAN CMP, #### [facility] ([id number]) [address] [place] [address] Lymphocytes/100 WBC (Bld) 14.8 % Normal [facility] Comment on above: Performed By: #### Isabel HARTMAN CMP, #### [facility] ([id number]) [address] [place] [address] MCH (RBC) [Entitic mass] 28.9 pg Normal 27-34 [facility] Comment on above: Performed By: #### Isabel HARTMAN CMP, #### [facility] ([id number]) [address] [place] [address] [place] [address] MCHC (RBC) [Mass/Vol] 33.9 g/dL Normal 32-36 [facility] Comment on above: Performed By: #### Isabel HARTMAN CMP, #### [facility] ([id number]) [address] [place] [address] MCV (RBC) [Entitic vol] 85 fL Normal 80-100 [facility] Comment on above: Performed By: #### Isabel HARTMAN CMP, #### [facility] ([id number]) [address] [place] [address] Monocytes (Bld) [#/Vol] 0.4 10*3/uL Normal 0-0.9 [facility] Comment on above: Performed By: #### Isabel HARTMAN CMP, #### [facility] ([id number]) [address] [place] [address] Monocytes/100 WBC (Bld) 7.6 % Normal [facility] Comment on above: Performed By: #### Isabel HARTMAN [facility], #### [facility] ([id number]) [address] [place] [address] Neutrophils/100 WBC (Bld) 76.3 % Normal [facility] Comment on above: Performed By: #### Isabel HARTMAN CMP, #### [facility] ([id number]) [address] [place] [address] Platelet mean volume (Bld) [Entitic vol] 7.7 fL Normal 7-12 [facility] Comment on above: Performed By: #### Isabel HARTMAN CMP, #### [facility] ([id number]) [address] [place] [address] Platelets (Bld) [#/Vol] 305 10*3/uL Normal 150-450 [facility] Comment on above: Performed By: #### C MINNIE, CMP, #### [facility] ([id number]) [address] [place] [address] RBC COUNT 4.45 X10E12/L Normal 3.80-5.20 [facility] Comment on above: Performed By: #### C BCA, CMP, #### [facility] ([id number]) [address] [place] [address] WBC (Bld) [#/Vol] 5.7 10*3/uL Normal 4.0-11.0 [facility] Comment on above: Performed By: #### C MINNIE, CMP, #### [facility] ([id number]) [address] [place] [address] COMPREHENSIVE METABOLIC PANE [facility] 01-03-2024 Albumin [Mass/Vol] 4.1 g/dL Normal 3.2-5.3 [facility] Comment on above: Performed By: #### C MINNIE, CMP, #### [facility] ([id number]) [address] [place] [address] ALP [Catalytic activity/Vol] 71 U/L Normal 39-130 [facility] Comment on above: Performed By: #### C BCA, CMP, #### [facility] ([id number]) [address] [place] [address]42 ALT [Catalytic activity/Vol] 34 U/L High 0-31 [facility] Comment on above: Performed By: #### C BCA, CMP, #### [facility] ([id number]) [address] [place] [address] Anion gap [Moles/Vol] 11 mmol/L Normal 5-15 [facility] Comment on above: Performed By: #### C BCA, CMP, #### [facility] ([id number]) [address] [place] [address] AST [Catalytic activity/Vol] 25 U/L Normal 0-41 [facility] Comment on above: Performed By: #### C BCA, CMP, #### [facility] ([id number]) [address] [place] [address]26 Bilirubin [Mass/Vol] 0.5 mg/dL Normal 0.3-1.2 [facility] Comment on above: Performed By: #### C BCA, CMP, #### [facility] ([id number]) [address] [place] [address]86 Calcium [Mass/Vol] 8.3 mg/dL Low 8.5-10.5 [facility] Comment on above: Performed By: #### C BCA, CMP, #### [facility] ([id number]) [address] [place] [address] 10072 Chloride [Moles/Vol] 102 mmol/L Normal 98-109 [facility] Comment on above: Performed By: #### C BCA, CMP, #### [facility] ([id number]) [address] [place] [address]271 CO2 [Moles/Vol] 19 mmol/L Low 22-32 [facility] Comment on above: Performed By: #### C BCA, CMP, #### [facility] ([id number]) [address] [place] [address]256 Creatinine [Mass/Vol] 0.56 mg/dL Normal 0.40-1.00 [facility] Comment on above: Result Comment: METH OD TRACEABLE TO IDMS STANDARD Performed By: #### C BCA, CMP, #### [facility] ([id number]) [address] [place] [address]61 eGFR (CKD-EPI) NON-RACE DEPENDENT >90 Normal >59 [facility] Comment on above: Result Comment: Reported eGFR is based on the CKD-EPI 2020 equation that does not use a race coefficient. Performed By: #### C MINNIE CMP, 97642-6 #### [facility] ([id number]) [address] [place] [address]3515 Glucose [Mass/Vol] 94 mg/dL Normal 65-99 [facility] Comment on above: Performed By: #### C MONALISA HARTMAN, #### [facility] ([id number]) [address] [place] [address] 28961 Potassium [Moles/Vol] 3.4 mmol/L Low 3.5-5.0 [facility] Comment on above: Performed By: #### C MONALISA HARTMAN, #### [facility] ([id number]) [address] [place] [address]178 Protein [Mass/Vol] 7.9 g/dL Normal 6.0-8.0 [facility] Comment on above: Performed By: #### C MINNIE CMP, #### [facility] ([id number]) [address] [place] [address] 19492 Sodium [Moles/Vol] 132 mmol/L Low 134-146 [facility] Comment on above: Performed By: #### C MINNIE CMP, #### [facility] ([id number]) [address] [place] [address] 07906 Urea nitrogen [Mass/Vol] 10 mg/dL Normal 5-23 [facility] Comment on above: Performed By: #### C BCA, CMP, #### [facility] ([id number]) [address] [place] [address] 26164 HCG ( test) Ql (U)o n 01-03-2024 Beta HCG ( test) Ql (U) Positive Abnormal NEG [facility] Comment on above: Performed By: #### 2 106-3 #### [facility] ([id number]) [address] [place] [address] 85461 HCG.beta subunit IA 3rd IS Q non 01-03-2024 HCG.beta subunit Qn 82 m[IU]/mL Normal [facility] Comment on above: Result Comment: NEW REFERENCE RANGE WEEKS (SINCE LMP) MIU/mL 3 WEEKS 5 - 50 4 WEEKS 5 - 426 5 WEEKS 18 - 7,340 6 WEEKS 1,080 - 56,500 7-8 WEEKS 7,650 - 229,000 9-12 WEEKS 25,700 - 288,000 13-16 WEEKS 13,300 - 254,000 17-24 WEEKS 4,060 - 165,400 25-40 WEEKS 3,640 - 117,000 MALES AND NON- FEMALES - <5 MIU/mL This test has been FDA approved for use in only. Elevated levels are not necessarily diagnostic for trophoblastic or nontrophoblastic neoplasms. Performed By: #### C BCA, [facility], 62840-8 #### [facility] ([id number]) [address] [place] [address] 43087 URN MACROSCOPIC NURon 2023 BILIRUBIN VICKI MODERATE Abnormal NEG [facility] Comment on above: Performed By: #### N UM #### [facility] ([id number]) [address] [place] [address] 21749 BLOOD/HGB VICKI Negative Normal NEG [facility] Comment on above: Performed By: #### N UM #### [facility] ([id number]) [address] [place] [address] 00519 GLUCOSE VICKI Negative Normal NEG [facility] Comment on above: Performed By: #### N UM #### [facility] ([id number]) [address] [place] [address] 07547 KETONES VICKI 80 mg/dL Abnormal NEG [facility] Comment on above: Performed By: #### N UM #### [facility] ([id number]) [address] [place] [address] 46914 LEUKOCYTE ESTERASE VICKI Negative Normal NEG [facility] Comment on above: Performed By: #### N UM #### [facility] ([id number]) [address] [place] [address] 62216 NITRITE VICKI Negative Normal NEG [facility] Comment on above: Performed By: #### N UM #### [facility] ([id number]) [address] [place] [address] 75209 PH VICKI 6.0 Normal 5.0-8.5 [facility] Comment on above: Performed By: #### N UM #### [facility] ([id number]) [address] [place] [address] 85218 PROTEIN VICKI 30 mg/dL Abnormal NEG [facility] Comment on above: Performed By: #### N UM #### [facility] ([id number]) [address] [place] [address] [place] [address] SPECIFIC GRAVITY VICKI >=1.030 Normal 1.003-1.035 [facility] Comment on above: Performed By: #### N UM #### [facility] ([id number]) [address] [place] [address] 41375 UROBILINOGEN VICKI 1.0 eu/dL Normal <1.1 [facility] Comment on above: Performed By: #### N UM #### [facility] ([id number]) [address] [place] [address]378 [place] PREG LESS THAN 14 WKS WIT H TRANSVAGINALon 01-03-2024 US PREG LESS THAN 14 WKS WITH TRANSVAGINAL US PREG LESS THAN 14 WKS WITH TRANSVAGINAL EXAM: Ultrasound Less Than 14 Weeks. TECHNIQUE: Transabdominal and transvaginal sonographic evaluation of the pelvis. No prior studies are available for comparison. INDICATION: Right-sided pelvic pain for one to 2 days. Last menstrual period is dated December 06, 2023. FINDINGS: The uterus measures 8.2 x 4.5 x 5.9 cm. Normal contour without focal lesions. Endometrial stripe measures 12.2 mm which is normal for menstruating female and no definite gestational sac seen .The right ovary measures 4.3 x 2.1 x 2.4 cm.The left ovary measures 5.7 x 4.2 x 4.1 cm with dominant follicle versus corpus luteal cyst seen measuring 3.5 x 3.5 x 3.3 cm. No adnexal masses. Color Doppler demonstrates arterial and venous flow in both ovaries The bladder is within normal limits. Small amount of free fluid is seen in the posterior cul-de-sac and adjacent to the uterus. IMPRESSION: 1. No definite intrauterine gestational sac to suggest early . patient has positive test and beta hCG of 82 which is very low, findings could be secondary to very early not yet visualized and follow-up ultrasound in one week can be obtained for further evaluation. Differential diagnosis includes early ectopic and complete in the proper clinical setting. Serial beta-hCG is suggested for further evaluation Finalized by Jean Johnson MD on 01/03/2024 4:20 PM Normal [facility] Encounters Encounter Date Encounter Type Care Provider Facility Start: 11-19-2024 End: 11-19-2024 ambulatory JAREK WILKES [facility] Start: 10-31-2024 End: 10-31-2024 Emergency department patient visit NOT IN SYSTEM [facility] Start: 09-20-2024 End: 09-20-2024 Emergency department patient visit NOT IN SYSTEM [facility] Start: 04-13-2024 End: 04-13-2024 Evaluation and management of inpatient YAMEL Candy JAY [facility] Start: 04-13-2024 End: 04-13-2024 Evaluation and management of inpatient TOMI SERRANO [facility] Start: 04-05-2024 End: 04-05-2024 ambulatory TOMI Jurado ZACH [facility] Start: 03-22-2024 End: 03-22-[address] [facility] Gamaliel [facility] Start: 03-15-2024 End: 03-15-[address] [facility] Gamaliel [facility] Start: 03-14-2024 End: 03-15-2024 Emergency department patient visit DIANELorin JOSE [facility] Start: 03-14-2024 End: 03-15-2024 Emergency department patient visit RANJITH KIRBY [facility] Start: 03-14-2024 End: 03-15-2024 Emergency department patient visit RANJITH KIRBY [facility] Start: 03-02-2024 End: 03-02-2024 ambulatory MOISÉS DIALLO [facility] Start: 03-01-2024 ambulatory NOT IN SYSTEM [facility] Start: 03-01-2024 End: 03-01-2024 Evaluation and management of inpatient ACE SERNA [facility] Start: 03-01-2024 ambulatory NOT IN SYSTEM [facility] Start: 02-29-2024 End: 03-01-2024 Evaluation and management of inpatient ANISHA GEORGE [facility] Start: 02-26-2024 End: 02-26-2024 Emergency department patient visit Scott Toney Facility:[facility] Start: 02-04-2024 End: 02-04-2024 ambulatory MELISSA Allen SULEMA [facility] Start: 02-04-2024 End: 02-04-2024 Subsequent hospital visit by physician [facility] Comment on above: Amenorrhea; 6 weeks gestation of ; Encounter for supervision of other normal in first trimester Start: 01-03-2024 End: 01-04-2024 Emergency department patient visit SKY GUERRA [facility] Start: 01-03-2024 End: 01-03-2024 Emergency department patient visit [facility] Procedures Date Procedure Procedure Detail Performing Clinician Start: 02-04-2024 Assay of free thyroxine Melissa Bajwa DO Work Phone: Start: 02-04-2024 End: 02-04-2024 Antibody hiv-1&hiv-2 single result Melissa Alejandro Sulema Bajwa DO Work Phone: Plan of Treatment Date Care Activity Detail Author Start: 10-25-2031 DTaP/Tdap/Td vaccine (8 - Td or Tdap) DTaP/Tdap/Td vaccine (8 - Td or Tdap) [facility] Start: 08-04-2024 Respiratory Syncytia l Virus (RSV) or age 60 yrs+ (1 - Risk 1-dose series) Respiratory Syncytial Virus (RSV) or age 60 yrs+ (1 - Risk 1-dose series) [facility] Start: 03-11-2024 Influenza vaccination Flu vacc ine (Season Ended) [facility] Start: 02-10-2024 End: 02-10-2024 Patient encounter procedure 02/10/2024 9:30 AM EDT Routine [facility] [address] [place] [address] Melissa Hernandez, DO [address] [place] [address] Repeat dating [facility]ST[facility] GYNECOLOG[facility] Comment on above: Repeat dating Start: 02-10-2024 End: 02-10-2024 Professional / ancillary services management 02/10/2024 9:00 AM EDT Ancillary Procedure [facility] [address] [place] [address] Repeat dating/OB [facility] Comment on above: Repeat dating/OB Start: 2022 Screening for malign ant neoplasm of cervix Pap smear [facility] Start: 12-02-2019 Hepatitis C screening Hepatitis C sc reen [facility] Start: 2017 Screening for Chlamy koki trachomatis Chlamydia/GC screen [facility] Start: 2016 HIV screening HIV screen [facility] Start: 2013 Depression [facility] Start: 06-02-2002 COVID-19 Vaccine (#1) COVID-19 Vacci ne (#1) [facility] Start: 2001 Hepatitis B vaccine (1 of 3 - 3-dose series) Hepatitis B vaccine (1 of 3 - 3-dose series) [facility] End: 02-04-2024 C.trachomatis N.gonorrhoeae DNA, Urine [facility] Comment on above: 1 Occurrences starti ng 02/04/2024 until 02/04/2024 End: 02-04-2024 Culture, Urine [facility] [employer] Comment on above: 1 Occurrences starti ng 02/04/2024 until 02/04/2024 End: 02-04-2024 Hemoglobin A1c/Hemoglobin.total in Blood [facility] [employer] Work Phone: Comment on above: 1 Occurrences starti ng 02/04/2024 until 02/04/2024 Payers Date Payer Category Payer Medicaid [id number] 2022 Private Health Insurance [id number] 2001 Unknown [id number] 2.16.8 [id number] 2001 Unknown [id number] 2.16.8 40.1.571591.3.579.2.6 2001 Unknown [id number] 2.16.8 40.1.319147.3.579.2.1286 2001 Unknown [id number] 2.16.8 40.1.737566.3.579.2.1286 2001 Unknown [id number] 2.16.8 40.1.330826.3.579.2.718 2001 Unknown [id number] 2.16.8 40.1.259875.3.579.2. 2001 Unknown [id number] 2.16.8 40.1.089314.3.579.2.1285 2001 Unknown [id number] 2.16.8 40.1.124685.3.579.2.1285 2001 Unknown [id number] 2.16.8 40.1.902967.3.579.2.1285 2001 Unknown [id number] 2.16.8 40.1.620983.3.579.2.1285 2001 Unknown [id number] 2.16.8 40.1.261852.3.579.2.1285 2001 Unknown [id number] 2.16.8 40.1.834930.3.579.2.1285 2001 Unknown [id number] 2.16. 840.1.405593.3.579.2.1285 2001 Unknown [id number] 2.16.8 40.1.063792.3.579.2.1285 2001 Unknown [id number] 2.16.8 40.1.849052.3.579.2.1285 2001 Unknown [id number] 2.16.8 40.1.320148.3.579.2.1285 2001 Unknown [id number] 2.16.8 40.1.807029.3.579.2.1285 2001 Unknown [id number] 2.16.8 40.1.536827.3.579.2.1285 2001 Unknown [id number] 2.16.8 40.1.986113.3.579.2.1285 2001 Unknown [id number] 2.16.8 40.1.465764.3.579.2.1285 2001 Unknown [id number] 2.16.8 40.1.392395.3.579.2.1286 Social History Date Type Detail Facility Start: 02-04-2024 Tobacco smoking stat [facility] Never smoked tobacco [facility] Start: 02-04-2024 Tobacco use and exposure Smokeless tobacco non-user [facility] Start: 02-04-2024 Alcohol intake Ex-drinker (finding) [facility] Start: 02-04-2024 History of Social function [facility] Start: 02-04-2024 Tobacco use panel [facility] Start: 01-07-2024 [facility] Start: 2001 Sex Assigned At Not on file [facility] Clinical Note 02-26-2024 Note Date & Type Note Facility 02-26-2024 Note Education Materials Obstetrics and Gynecology Incomplete Miscarriage An incomplete miscarriage happens when tissue from or part of the placenta, known as products of conception, remain in the body after a miscarriage. A miscarriage is the loss of before the 20th week. Most miscarriages happen in the first 3 months of . Sometimes, a miscarriage happens before a woman knows she is . Having a miscarriage can be an emotional experience. If you have had a miscarriage, talk with your health care provider about any questions you may have about: ? The loss of your baby. ? The grieving process. ? Your future plans. What are the causes? Many times, the cause of an incomplete miscarriage is not known. What increases the risk? The following factors may make a woman more likely to have an incomplete miscarriage: ? Using a ccbze-gvn-vrcb approach (expectant management) to treat a miscarriage. ? Using medicine to treat a miscarriage. What are the signs or symptoms? Symptoms of this condition include: ? Vaginal bleeding or spotting, with or without cramps or pain. ? Pain or cramping in the abdomen or lower back. ? Fluid or tissue coming out of the vagina. How is this diagnosed? This condition may be diagnosed based on: ? A physical exam. ? Ultrasound. How is this treated? An incomplete miscarriage may be treated with: ? Dilation and curettage (D&C). In this procedure, the cervix is stretched open and any remaining tissue is removed from the lining of the uterus (endometrium). The cervix is the lowest part of the uterus, which opens into the vagina. ? Medicines. These may include: ? Antibiotic medicine, to treat infection. ? Medicine to help any remaining tissue come out of the uterus. ? Medicine to reduce (contract) the size of the uterus. These medicines may be given if there is a lot of bleeding. If you have Rh-negative blood, you may be given an injection of Rho(D) immune globulin to help prevent problems with future pregnancies. Follow these instructions at home: Medicines ? Take pqqg-fbg-zdwyeqn and prescription medicines only as told by your health care provider. ? If you were prescribed antibiotic medicine, take your antibiotic as told by your health care provider. Do not stop taking the antibiotic even if you start to feel better. Activity ? Rest as told by your health care provider. Ask your health care provider what activities are safe for you. ? Have someone help with home and family responsibilities during this time. General instructions ? Monitor how much tissue or blood comes out of the vagina. ? Do not have sex, douche, or put anything in your vagina, such as tampons, until your health care provider says it is okay. ? To help you and your partner with the grieving process, talk with your health care provider or get counseling to help deal with the loss. ? When you are ready, meet with your health care provider to discuss any important steps you should take for your health. Also, discuss steps you should take to have a healthy in the future. ? Keep all follow-up visits. This is important. Where to find more information ? The [employer]: acog.org ? U.[place]. Department of Health and Human Services Office of Women's Health: hrsa.gov/pknxkf-phhaii-iwlmiu Contact a health care provider if: ? You have a fever or chills. ? There is bad-smelling fluid coming from your vagina. ? You have more bleeding instead of less. ? Tissue or blood clots come out of your vagina. Get help right away if: ? You have severe cramps or pain in your back or abdomen. ? Heavy bleeding soaks through 2 large sanitary pads an hour for more than 2 hours. ? You become light-headed or weak. ? You faint. ? You feel sad, and your sadness takes over your thoughts. ? You think about hurting yourself. If you ever feel like you may hurt yourself or others, or have thoughts about taking your own life, get help right away. Go to your nearest emergency department or: ? Call your local emergency services (911 in the [place] ? Call a suicide crisis helpline, such as the National Suicide Prevention Lifeline at or 141 in the [place] This is open 24 hours a day in the [place] ? Text the Crisis Text Line at 290431 (in the [place] Summary ? An incomplete miscarriage happens when tissue from or part of the placenta, known as products of conception, remain in the body after a miscarriage. ? Treatment may include a dilation and curettage (D&C) procedure or medicines. In a D&C procedure, tissue is removed from the uterus. ? Rest as told by your health care provider. Ask your health care provider what activities are safe for you. ? To help you and your partner with the grieving process, talk with your health care provider or get counseling to help de (more content not included)... [facility] Evaluation note Note Date & Type Note Facility Evaluation note Diagnosis Amenorrhea Absence of menstruation 6 weeks gestation of Encounter for supervision of other normal in first trimester documented in this encounter [facility] Summary Purpose Family History No Family History Records FoundNo Family History Records FoundNo Family History Records FoundNo Family History Records FoundNo Family History Records FoundNo Family History Records Found Advance Directives No Advanced Directives Records FoundNo Advanced Directives Records FoundNo Advanced Directives Records FoundNo Advanced Directives Records FoundNo Advanced Directives Records FoundNo Advanced Directives Records Found Additional Source Comments INFORMATION SOURCE (unrecogn ized section and content) DATE CREATED AUTHOR 02/05/2024 [facility] DATE CREATED AUTHOR AUTHOR'S ORGANIZ ATION 03/02/2024 [facility] DATE CREATED AUTHOR AUTHOR'S ORGANIZ ATION 03/10/2024 [facility] DATE CREATED AUTHOR AUTHOR'S ORGANIZ ATION 03/17/2024 [facility] DATE CREATED AUTHOR AUTHOR'S ORGANIZ ATION 04/21/2024 [facility] DATE CREATED AUTHOR AUTHOR'S ORGANIZ ATION 11/21/2024 [facility] FOR RECORDS PERTAINING TO PATIENTS WHO ARE OR HAVE BEEN ENROLLED IN A CHEMICAL DEPENDENCY/SUBSTANCEABUSE PROGRAM, SOME INFORMATION MAY BE OMITTED. This clinical summary was aggregated from multiple sources. Caution should be exercised in using it in the provision of clinical care. This summary normalizes information from multiple sources, and as a consequence, information in this document may materially change the coding, format and clinical context of patient data. In addition, data may be omitted in some cases. CLINICAL DECISIONS SHOULD BE BASED ON THE PRIMARY CLINICAL RECORDS. [facility]. provides no warranty or guarantee of the accuracy or completeness of information in this document.
[2024-11-23 10:03] LABS: HCG Quantitative <1 mIU/mL
--- NOTE | 2024-11-23 10:17 | ED_ITS ---
HPI HPI - General Adult General Chief complaint: Abdominal Pain Stated complaint: 4-6 WEEKS POSSIBLE MISCARRIAGE Time Seen by Provider: 11/23/24 09:48 Source: patient Mode of arrival: walk-in Limitations: no limitations History of Present Illness HPI narrative: This 23-year-old female presents to the ED with chief complaint abnormal vaginal bleeding. She states her last normal. Was on September 25 and on November 07 fourth she had a positive home test. She went to an emergency department 1 week ago and had a quantitative hCG level the result of which I have seen on her phone and it was less than 5. She was to get another level in 72 hours but was not able to do that. She states that around 23 October she had a small amount of spotting and yesterday started spotting and today passed some clots from the vagina. She denies lower abdominal cramping or bleeding. She is 5 para 1 AB 3 counting this . Related Data Home Medications ?Medication ?Instructions ?Recorded ?Confirmed ketorolac 10 mg tablet 10 mg PO BID 03/03/24 03/03/24 levothyroxine 50 mcg tablet 50 mcg PO DAILY 03/03/24 03/03/24 Allergies Allergy/AdvReac Type Severity Reaction Status Date / Time No Known Drug Allergies Allergy Verified 11/23/24 09:16 Opioid HPI Opioid Management Most Recent Opioid Data: Last Pain Scale 7 03/03/24 12:18 03/03/24 Last ORT Total Score 4 02/28/24 16:12 02/28/24 Last ORT Risk Category Moderate Risk 02/28/24 16:12 02/28/24 Review of Systems ROS0 Status of ROS 10 or more systems reviewed and unremark able except as noted in history and below [facility] Medical History Symptomatic anemia ?D64.9 - Anemia, unspecified (ICD-10) Acute blood loss anemia ?D62 - Acute posthemorrhagic anemia (ICD-10) Incomplete miscarriage ?O03.4 - Incomplete spontaneous without complication (ICD-10) Abnormal vaginal bleeding ?N93.9 - Abnormal uterine and vaginal bleeding, unspecified (ICD-10) Acute hypotension ?I95.9 - Hypotension, unspecified (ICD-10) Hypothyroidism ?E03.9 - Hypothyroidism, unspecified (ICD-10) SAB (spontaneous ) ?O03.9 - Complete or unspecified spontaneous without complication (ICD-10) Social History Highest level of school completed/degree received: Associate degree: occupational, technical, vocational program Little interest or pleasure in doing things: not at all Feeling down, depressed, or hopeless: not at all Exam Narrative Exam Narrative: Afebrile and nondistressed. Vital signs are stable. HEENT exam is normal to inspection. Neck supple. Lung sounds are clear to auscultation bilaterally with good air entry. Heart has regular rate and rhythm. Abdomen soft nontender. She moves all extremities actively. Constitutional Vital Signs, click to edit/add: Last Vital Signs Temp 98.4 F 11/23/24 09:17 Pulse 74 11/23/24 09:17 Resp 18 11/23/24 09:17 BP 99/73 11/23/24 09:17 Pulse Ox 100 11/23/24 09:17 O2 Del Method Room Air 11/23/24 09:17 Course Vital Signs Vital signs: Vital Signs Temperature 98.4 F 11/23/24 09:17 Pulse Rate 74 11/23/24 09:17 Respiratory Rate 18 11/23/24 09:17 Blood Pressure 99/73 11/23/24 09:17 Pulse Oximetry 100 11/23/24 09:17 Oxygen Delivery Method Room Air 11/23/24 09:17 Temperature 98.4 F 11/23/24 09:17 Pulse Rate 74 11/23/24 09:17 Respiratory Rate 18 11/23/24 09:17 Blood Pressure 99/73 11/23/24 09:17 Pulse Oximetry 100 11/23/24 09:17 Oxygen Delivery Method Room Air 11/23/24 09:17 Medical Decision Making MDM Narrative Medical decision making narrative: Patient presents stating she is and is concerned about some vaginal bleeding and spotting that started yesterday. Her hCG level today is less than 1. She is reassured that she is definitely not right now. She has an appointment with her maintenance pipefitter tomorrow and may keep that appointment for further workup. She is to return for worsening symptoms. Lab Data Labs: Lab Results 11/23/24 Range/Units 09:34 HCG, Quant <1 mIU/mL Discharge Plan Discharge Chief Complaint: Abdominal Pain Clinical Impression: Oligomenorrhea Qualifiers: Oligomenorrhea type: unspecified type Qualified Code(s): N91.5 - Oligomenorrhea, unspecified Patient Disposition: Home, Self-Care Time of Disposition Decision: 10:16 Condition: Good Mode of Transportation: Private Vehicle Prescriptions / Home Meds: No Action ketorolac 10 mg tablet 10 mg PO BID levothyroxine 50 mcg tablet 50 mcg PO DAILY Print Language: [place] Instructions: Abnormal (Dysfunctional) Uterine Bleeding (ED) Additional Instructions: Follow-up with your maintenance pipefitter tomorrow as scheduled. Return for worsening symptoms. Referrals: Physician,Non-Staff, MD [Primary Care Provider] - 1 week
== END 2024-11-23 10:25 | disposition home or self-care (01) ==
PROVIDERS: Emergency Provider Emergency Medicine
DX: N91.5 Oligomenorrhea, unspecified (principal)
CPT/HCPCS: 36415; 84702; 99283

== ENCOUNTER 2025-05-02 10:28 | Outpatient (OUT) | payer MEDICAID, SELFPAY ==
--- OUTSIDE RECORDS SUMMARY | 2025-04-22 10:00 | XMS_ITS | Encounter Summary ---
Author Organization [facility] Address [address] [place] [address] Care Team Providers Care Sewer Separation Designer Name Role Phone Villa Overton Primary Care Provider [phone] Encounter Details Date Type Department Care Team (Latest Contact Info) Description 04/22/2025 10:00 AM EDT Ancillary Procedure [facility] [address] [place] [address] [place] [id number] Missed menses; Positive urine test ([facility] Social History Tobacco Use Types Packs/Day Years Used Date Smoking Tobacco: Never Assessed Comments Unknown Sex and Gender Information Value Date Recorded Sex Assigned at Not on file Legal Sex Female 12:26 PM EDT Gender Identity Not on file Sexual Orientation Not on file documented as of this encounter Plan of Treatment Upcoming Encounters Date Type Department Care Team (Late st Contact Info) Description 05/26/2025 11:40 AM EDT Routine [facility] [address] [place] [address] [place] [id number] David South DO [address] [place] [address] [place] [address] documented as of this encounter Procedures Procedure Name Priority Date/Time Associated Diagnosis Comments US OB TRANSVAGINAL Routine 04/22/2025 10 :26 AM EDT Missed menses Positive urine test ([facility]) documented in this encounter Results * US OB transvaginal (04/22/2025 10:26 AM EDT) Anatomical Region Laterality Modality Body Ultrasound 04/22/2025 2:15 PM EDT Impressions 04/25/2025 7:25 AM EDT Findings consistent with a live intrauterine gestation, current sonographic age of 8 weeks and 5 days resulting in an estimated date of delivery of November 27, 2025 TRANSCRIBED BY: ELECTRONICALLY SIGNED BY: Antony Ferrara MD Narrative 04/25/2025 7:25 AM EDT FINDINGS: A single intrauterine gestational sac is present. No subchorionic hemorrhage. A single pole is present. Normal heart rate at 155 beats per minute. Yolk sac also is seen. Current sonographic age is 8 weeks and 5 days based on the crown-rump length measurement of 2.1 cm. Based on this age, current estimated date of delivery is November 27, 2025. No pelvic fluid or adnexal mass present. Cervix is closed, 4 cm length Procedure Note Antony Ferrara MD - 04/25/2025 FINDINGS: A single intrauterine gestational sac is present. No subchorionichemorrhage. A single pole is present. Normal heart rate at155 beats per minute. Yolk sac also is seen. Current sonographic age is8 weeks and 5 days based on the crown-rump length measurement of 2.1 cm.Based on this age, current estimated date of delivery is November 27, 2025.No pelvic fluid or adnexal mass present. Cervix is closed, 4 cm length IMPRESSION: Findings consistent with a live intrauterine gestation, currentsonographic age of 8 weeks and 5 days resulting in an estimated date ofdelivery of November 27, 2025 TRANSCRIBED BY: ELECTRONICALLY SIGNED BY: Antony Ferrara MD us David Brannon DO IMG OB US PROCEDURES Final Resul t documented in this encounter Visit Diagnoses Diagnosis Missed menses Positive urine test ([facility]) documented in this encounter Care Teams Sewer Separation Designer Relationship Specialty Start Date End Date Villa Overton PA [address] [place] [address] PCP - General Family Medicine 04/22/25 documented as of this encounter
--- OUTSIDE RECORDS SUMMARY | 2025-04-22 10:30 | XMS_ITS | Encounter Summary ---
Author Organization [facility] Address [address] [place] [address] Care Team Providers Care Aids Nurse Name Role Phone Villa Overton Primary Care Provider [phone] Reason for Visit * Reason Comments Amenorrhea Encounter Details Date Type Department Care Team (Late st Contact Info) Description 04/22/2025 10:30 AM EDT Initial [facility] [address] [place] [address] [place] [address] GA: [id number] Social History Tobacco Use Types Packs/Day Years Used Date Smoking Tobacco: Never Assessed Comments Unknown Sex and Gender Information Value Date Recorded Sex Assigned at Not on file Legal Sex Female 12:26 PM EDT Gender Identity Not on file Sexual Orientation Not on file documented as of this encounter Progress Notes * Kaitlin Corado MA - 04/22/2025 10:30 AM EDT Reason for Appointment: Patient ID: Priscilla Albarran is a 24 y.o. female who presents for No chief complaint on file. Patient presents today for a Nurse OB Intake appointment. Patient is Unknown with a Estimated Date of Delivery: None noted. OB History No obstetric history on file. Current Medications: has a current medication list which includes the following prescription(s): ondansetron. Medical History: Active Ambulatory Problems Diagnosis Date Noted No Active Ambulatory Problems Resolved Ambulatory Problems Diagnosis Date Noted No Resolved Ambulatory Problems No Additional Past Medical History No family history on file. Social History Tobacco Use Smoking status: Not on file Smokeless tobacco: Not on file Substance Use Topics Alcohol use: Not on file Drug use: Not on file Past Surgical History: Procedure Laterality Date CT ANGIOGRAM HEART CORONARY 03/14/2024 CT ANGIOGRAM TAVR 03/14/2024 CT ANGIOGRAM HEART CORONARY 03/14/2024 CT ANGIOGRAM TAVR 03/14/2024 No Known Allergies Vitals: There is no height or weight on file to calculate BMI. BP: No LMP recorded. Assessment/Plan Diagnoses and all orders for this visit: Missed menses - US OB transvaginal; Future - Type and screen; Future - ABO/Rh; Future - CBC and differential - Hemoglobin A1c - RPR - Rubella antibody, IgG - Hepatitis B surface antigen - Hepatitis C antibody - HIV-1 and HIV-2 antibodies - Urine culture - POCT , urine manually resulted - POCT urinalysis dipstick manually resulted Positive urine test ([facility]) - US OB transvaginal; Future , unspecified gestational age ([facility]) - Type and screen; Future - ABO/Rh; Future - CBC and differential - Hemoglobin A1c - RPR - Rubella antibody, IgG - Hepatitis B surface antigen - Hepatitis C antibody - HIV-1 and HIV-2 antibodies - Rapid drug screen, urine; Future Encounter for supervision of normal first in first trimester ([facility]) - Rapid drug screen, urine; Future Nausea and vomiting in ([facility]) - ondansetron (Zofran) 4 MG tablet; Take 1 tablet (4 mg) by mouth every 6 (six) hours if needed fornausea or vomiting for up to 120 doses Take 1 tablet by mouth every 6 hours as needed for nausea. Thyroid disease - TSH; Future Nurse Note: OB Intake: Patient presents today for first OB visit. Patients history has been reviewed in great detail including any potential risks. Patient signed consent forms and patient desires testing in both trimesters. Patient currently has no complaints and has been advised to drink 6-8 glasses of water a day, eatno raw or undercooked meat, and stay away from [facility]. Patient has also been advised to not change litter boxes and eat 6 small meals a day. Patient has been consulted regarding the do's and don'ts ofpregnancy. Patient was given labs and all questions and concerns were answered. Follow Up: Patient is to have labs drawn at directed and return to office for initial OB appointment with provider. Patient may call office as needed with any concerns or questions. Nurse Visit Completed by: Kaitlin Corado MA documented in this encounter Plan of Treatment Upcoming Encounters Date Type Department Care Team (Late st Contact Info) Description 05/26/2025 11:40 AM EDT Routine [facility] [address] [facility] [address] David South DO [address] [place] [address] Scheduled Orders Name Type Priority Associated Diagnoses Orde r Schedule Type and screen Lab Routine Missed menses , unspecified gestational age ([facility]) Expected: 04/22/2025 (Approximate), Expires: 04/22/2026 ABO/Rh Lab Routine Missed menses , unspecified gestational age ([facility]) Expected: 04/22/2025 (Approximate), Expires: 04/22/2026 CBC and differential Lab Routine Missed menses , unspecified gestational age ([facility]) Ordered: 04/22/2025 Hemoglobin A1c Lab Routine Missed menses , unspecified gestational age ([facility]) Ordered: 04/22/2025 RPR Lab Routine Missed menses , unspecified gestational age ([facility]) Ordered: 04/22/2025 Rubella antibody, IgG Lab Routine Missed menses , unspecified gestational age ([facility]) Ordered: 04/22/2025 Hepatitis B surface antigen Lab Routine Missed menses , unspecified gestational age ([facility]) Ordered: 04/22/2025 Hepatitis C antibody Lab Routine Missed menses , unspecified gestational age ([facility]) Ordered: 04/22/2025 HIV-1 and HIV-2 antibodies Lab Routine Missed menses , unspecified gestational age ([facility]) Ordered: 04/22/2025 Urine culture Microbiology Routine Missed menses Ordered: 04/22/2025 Rapid drug screen, urine Lab Routine , unspecified gestational age ([facility]) Encounter for supervision of normal first in first trimester ([facility]) Expected: 04/22/2025 (Approximate), Expires: 04/22/2026 TSH Lab Routine Thyroid disease Expected: 04/22/2025 (Approximate), Expires: 04/22/2026 documented as of this encounter Procedures Procedure Name Priority Date/Time Associated Diagnosis Comments POCT , URINE Routine 04/28/2025 2:46 PM EDT Missed menses POCT URINALYSIS DIPSTICK Routine 04/28/2025 2:45 PM EDT Missed menses documented in this encounter Results * (ABNORMAL) POCT , urine manually resulted (04/28/2025 2:46 PM EDT) Preg Test, Ur Positive Negative Urine 04/28/2025 2:46 PM EDT David Brannon DO POINT OF CARE TEST ENTER/EDIT OR DERABLES Final Result * POCT urinalysis dipstick manually resulted (04/28/2025 2:45 PM EDT) Color, UA Yellow Clarity, UA Clear Glucose, UA Negative Negative - 2000(110) ++++ mg/dL Bilirubin, UA Negative Negative - 4(70) +++ mg/dL Ketones, UA Negative Negative - 160(16) ++++ mg/dL Spec Grav, UA 1.010 1 - 1.03 Blood, UA Negative Negative - 50 Byron/mcL pH, UA 6.5 5 - 9 Protein, UA Negative Negative - 2000(20) ++++ mg/dL Urobilinogen, UA 0.2 0.2 - 12 mg/dL Leukocytes, UA Negative Negative - 500+++ Robby/mcL Nitrite, UA Negative Negative - Positive Urine 04/28/2025 2:45 PM EDT David Brannon DO POINT OF CARE TEST ENTER/EDIT OR DERABLES Final Result * US OB transvaginal (04/22/2025 10:26 AM [...] Diagnoses Diagnosis Missed menses Positive urine test ([facility]) Missed menses Positive urine test ([facility]) , unspecified gestational age ([facility]) Encounter for supervision of normal first in first trimester ([facility]) Nausea and vomiting in ([facility]) Unspecified vomiting of , unspecified as to episode of care Thyroid disease Unspecified disorder of thyroid documented in this encounter Care Teams Aids Nurse Relationship Specialty Start Date End Date Villa Overton PA [address] [place] [address] PCP - General Family Medicine 04/22/25 documented as of this encounter
--- OUTSIDE RECORDS SUMMARY | 2025-05-02 10:38 | XMS_ITS | Clinical Summary ---
Author Organization [facility] Address [address] [place] [address] Care Team Providers Care Crisis Clinician Name Role Phone Noah Mata MD Primary Care Provider [phone] Allergies No known active allergies Medications No known medications Immunizations Immunization Administration Dates Next Due Hepatitis B (Ped/Adol) 2001 Social History Tobacco Use Types Packs/Day Years Used Date Smoking Tobacco: Never Smokeless Tobacco: Never Alcohol Use Standard Drinks/Week Comments Never 0 (1 standard drink = 0.6 oz pur e alcohol) Comments No Sex and Gender Information Value Date Recorded Sex Assigned at Not on file Legal Sex Female 10:31 AM EDT Gender Identity Not on file Sexual Orientation Not on file Last Filed Vital Signs Vital Sign Reading Time Taken Comments Blood Pressure 108/76 06/29/2024 11:23 PM EST Pulse 92 06/29/2024 11:23 PM EST Temperature 36.6 C (97.9 F) 06/29/2024 11:23 PM EST Respiratory Rate 18 06/29/2024 11:58 PM EST Oxygen Saturation 100% 06/29/2024 11:23 PM EST Inhaled Oxygen Concentration - - Weight 80.3 kg (177 lb) 06/29/2024 11:23 PM EST Height 160 cm (5' 3 ) 06/29/2024 11:23 PM EST Body Mass Index 31.35 06/29/2024 11:23 PM EST Plan of Treatment Health Maintenance Due Date Last Done Comments SDOH FOOD 2001 Social Determinants of Health 2002 All Patients [place] HIV Screening Ages 15-65 2016 Cervical Cancer Screening 2022 COVID- 19 Vaccine ( season) 2024 07/02/2023, 05/12/2021 CHLAMYDIA SCREENING 08/11/2024 08/05/2023, Depression Screening 08/11/2024 INFLUENZA VACCINE (#1) 2025 3, 11/27/2020, 04/29/2019, Additional history exists BMI/BMI PERCENTILE ANNUAL MEASUREMENT 06/29/2025 06/29/2024 Adult Tdap/Td Vaccine 10/25/2031 10/24/2021, 018 SHINGRIX VACCINE SERIES (1 of 2) 12/02/2051 Pneumococcal Vaccine Aged Out 04/07/2002, 01/28/20 02 No longer eligible based on patient's age to complete this topic HEPATITIS B VACCINES Completed 06/09/2002, 01/27/2002, 2001 HPV VACCINES Completed 04/27/2018, 12/09, 07/16/2017 Meningococcal B Serotype Vaccines Completed 06/30/2018, 04/27/2018 Adolescent Tdap Vaccine Discontinued 10/24/2021, 12/19 HEPATITIS C SCREENING Completed 02/04/2024, 022 Insurance [place]ICAID [place] [id number] Care Teams Crisis Clinician Relationship Specialty [place] [id number] [facility] [place] [address] PCP - General Family Medicine 06/29/24
--- OUTSIDE RECORDS SUMMARY | 2025-05-02 10:38 | XMS_ITS | Encounter Summary ---
Author Organization [facility] Address [address] [place] [address] Care Team Providers Care Car Pick Up Driver Name Role Phone Buzz Bland MD Primary Care Provider [phone] Phys, Self-Refer Or No Pcp/Referring Primary Car e Provider Unavailable Noah Mata MD Primary Care Provide r Unavailable Francia Forrest DO Primary Care Provider [phone] Encounter Details Date Type Department Care Team (Late st Contact Info) Description 08/13/2021 Order Ice [facility] [address] [place] [address] [place] [address] Hermila Stone MD [address] [place] [address] [facility] [place] [address] Encounter for routine laboratory testing Social History Tobacco Use Types Packs/Day Years Used Date Smoking Tobacco: Never Smokeless Tobacco: Never Alcohol Use Standard Drinks/Week Comments Not Currently 0 (1 standard drink = 0.6 oz pur e alcohol) Comments Yes Sex and Gender Information Value Date Recorded Sex Assigned at Not on file Legal Sex Female 12:33 PM EST Gender Identity Not on file Sexual Orientation Not on file 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 Not on file Not on file documented as of this encounter Plan of Treatment Not on file documented as of this encounter Visit Diagnoses Diagnosis Encounter for routine laboratory testing Laboratory examination ordered as part of a routine general medical examination documented in this encounter Additional Health Concerns Infection Onset Date Last Indicated Resolved Time COVID-19 08/13/2021 08/13/2021 08/23/2021 12:4 4 AM EST Rule Out COVID-19 12/04/2021 12/04/2021 12/04/2021 8:33 PM EDT Rule Out COVID-19 12/04/2021 12/04/2021 12/05/2021 1:02 AM EDT documented as of this encounter Care Teams Car Pick Up Driver Relationship Specialty Start Date End Date Buzz Bland MD PCP - General Pediatrics 07/30/21 09/04/22 Phys, Self-Refer Or No Pcp/Referring PCP - General 09/05/22 09/04/23 Noah Mata MD PCP - General Family Medicine 09/05/23 03/01/25 Francia Forrest DO [facility] [place] [address] PCP - General 03/02/25 documented as of this encounter
--- OUTSIDE RECORDS SUMMARY | 2025-05-02 10:38 | XMS_ITS | Clinical Summary ---
Author Organization [facility] Address [address] [place] [address] Care Team Providers Care Material Stress Tester Name Role Phone Lon Francia Jurado DO Primary Care Provider [phone] Allergies Active Allergy Reactions Criticality Noted Date Comments Peanuts Rash-Severe,Respirat ory Difficulty,Rash-Mild High 08/20/2021 Medications norgestimate-et hinyl estradioL (SPRINTEC) 0.25-35 mg-mcg tablet Take 1 tablet by mouth once daily. 84 tablet 5 11/09/2023 Active semaglutide (OZEMPIC) 0.25 mg or 0.5 mg (2 mg/3 mL) injection penIndications: BMI 36.0-36.9,adult Inject 0.25 mg into the skin once a week. 2 mL 2023 Active phentermine (ADIPEX-P) 37.5 mg capsuleIndicati ons:BMI 36.0-36.9,adult Take 1 capsule (37.5 mg) by mouth once daily. 30 capsule 12/03/2023 Active VITAMIN ORAL Active citalopram (CeleXA) 10 mg tabletIndicatio ns:Current severe episode of major depressive disorder without psychotic features without prior episode (CMS/HCC) Take 4 tablets (40 mg) by mouth once daily. 120 tablet 03/12/2024 Active hydrOXYzine HCL (ATARAX) 25 mg tabletIndicatio ns:Panic attack Take 1 tablet (25 mg) by mouth every eight hours as needed for anxiety. 30 tablet 03/12/2024 Active buPROPion 150 mg 24 hr extended release XL tabletIndicatio ns:Current severe episode of major depressive disorder without psychotic features without prior episode (CMS/HCC),Inatt ention Take 1 tablet (150 mg) by mouth every morning. 90 tablet 4 03/12/2024 5 Active levothyroxine 75 mcg tablet Take 1 tablet (75 mcg) by mouth once daily, 30 min prior to meal. 90 tablet 4 01/25/2025 6 Active Hospital, Clinic, or Other Facility Administered Medication Ordered Dose Route Frequency Start Date End Date Status azithromycin (ZITHROMAX) tablet 1,000 mg 1000 mg Oral ONCE 02/22/2024 Active Active Problems Problem Noted Date Diagnosed Date Current severe episode of ma deborah depressive disorder without psychotic features without prior episode 10/08/2023 Resolved Problems Problem Noted Date Diagnosed Date Resolved Date (spontaneous vaginal delivery) 12/06/2021 11/09/2023 Second degree perineal laceration 12/06/2021 11/09/2023 PPH ( hemorrhage) 12/06/2021 11/09/2023 anemia 12/06/2021 11/09/2023 High-risk in third trimester 10/24/2021 11/09/2023 History of 2019 novel michael virus disease (COVID-19) 08/23/2021 11/09/2023 Overview (08/23/2021): Added automatically due to COVID-19 infection resolution History of 2019 novel michael virus disease (COVID-19) 08/17/2021 06/30/2024 Pleural effusion, , aff ecting care of mother, antepartum 08/13/2021 11/09/2023 Immunizations Immunization Administration Dates Next Due DTaP (pediatric) 02/26/2006, 3,06/09/2002,04/07,01/27/2002 Hepatitis A (pediatric)(12 m onths through 18 years) 07/16/2017,03/27/2007 Hepatitis B (pediatric)(riky h through 19 years) 06/09/2002,01/27/2002,2001 Hib (Unspecified) 01/27/2002 Hib-HibTITER (HBOC)(historic) 02/02/2003, 002,04/07/2002 Human Papillomavirus 9-marilee t, Recombinant (Age 9-26) (Gardasil 9) 04/27/2018,12/19/2017,07/16/2017 Influenza, Quadrivalent (P-f ree) (6 Mo And Older) (Inject) (Seasonal Historic) 04/29/2019,04/27/2018,07/16/2017 Influenza, quadrivalent, (vi al, multi-dose)(6 mos and older)(inject) - (Seasonal Historic) 11/27/2020 MMR 02/26/2006,02/02/2003 Meningococcal B (Age 10-adul t) (Bexsero) 06/30/2018,04/27/2018 Meningococcal conjugate (age 9 mo-55 yrs)(Menactra) (historic) 12/19/2017 Pneumococcal conjugate (Prev jason 7) (Historic only) 04/07/2002,01/27/2002 Polio (IPV) 02/26/2006,04/07/2002,01/27/2002 Polio (oral) (historic only) 02/02/2003 Tetanus+Diphtheria+Pertussis (age 7 years and older) 10/24/2021,12/19/2017 Varicella 07/16/2017,02/02/2003 Family History Medical History Relation Name Comments No Known Problems Brother 1 No Known Problems Brother 2 No Known Problems Father No Known Problems Father of the baby Diabetes Maternal Grandfather Hypertension Maternal Grandmother Stroke Maternal Grandmother Anemia Mother No Known Problems Paternal Grandfather No Known Problems Paternal Grandmother Asthma Sister 1 No Known Problems Sister 2 No Known Problems Son Alpha Thalassemia Neg Hx Anesth problems Neg Hx [employer]azi [employer] Neg Hx Beta Thalassemia Neg Hx defects Neg Hx Breast cancer Neg Hx Clotting disorder Neg Hx Congenital heart disease/defect Neg Hx Cystic fibrosis Neg Hx Heart disease Neg Hx Intellectual disability Neg Hx Bahamian/Chilean/Mediterranean Background Neg Hx Muscular Dystrophy Neg Hx Neural tube defect Neg Hx Ovarian cancer Neg Hx Ben-Sachs disease Neg Hx Relation Name Status Comments Brother 1 Alive Brother 2 Alive Father Father of the baby Alive Maternal Grandfather Alive Maternal Grandmother Mother Alive Paternal Grandfather Paternal Grandmother Alive Sister 1 Alive Sister 2 Alive Son Alive Social History Tobacco Use Types Packs/Day Years Used Date Smoking Tobacco: Former Hookah Smokeless Tobacco: Never Tobacco Cessation:Counseling Given: Not Answered Alcohol Use Standard Drinks/Week Comments Not Currently 0 (1 standard drink = 0.6 oz pur e alcohol) AUDIT-C Answer Date Recorded Q1: How often do you have a drink containing alc ohol? Never 01/23/2024 Average Number of Drinks Not on file 024 Frequency of Binge Drinking Not on file 01/09 Hunger Vital Sign Answer Date Recorded Within the past 12 months, y ou worried that your food would run out before you got the money to buy more. Sometimes true Within the past 12 months, t he food you bought just didn't last and you didn't have money to get more. Sometimes true 06/2024 PRAPARE - Transportation Answer Date Re corded In the past 12 months, has l ack of transportation kept you from medical appointments or from getting medications? No 09/21/2023 Lack of Transportation (Non-Medical) Not on file 09/21/2023 Patten Depression Scale Answer Date Recorded Patten Depression Score 12 01/16/2024 10. The thought of harming myself has occurred t o me Never 01/16/2024 Intimate Partner Violence Answer Date R ecorded Within the last year, have y ou felt unsafe in your home or been afraid of someone close to you? No 09/21/2023 Humiliation Not on file 09/21/2023 Within the last year, have y ou been kicked, hit, slapped, or otherwise physically hurt by someone close to you? No 09/21/2023 Within the past 12 months, h ave you been raped or forced to have any kind of sexual activity by someone? No Job Training Answer Date Recorded Do you have a hard time find ing work or another steady source of income? No 09/21/2023 Do you need help finding a [facility] career center and/or job training? No 09/21/2023 Child or Elder Care Answer Date Recorde d In the last 4 weeks, did get ting early childhood educator aide, elder care, or care for another person make it difficult to work, study, or get to medical visits? 2 Yes 09/21/2023 Depression (PHQ-9) Answer Date Recorded Last PHQ-9 Score 0 06/30/2024 Depression Symptoms Severity Score: 0 06/30/2024 Virtual Care Answer Date Recorded How would you describe your comfort level with using technology (smart phones, mobile apps, patient portals) to access your health care? Very comfortable 09/21/2023 Do you have internet access in your home that would allow you to participate in a realtime video visit with your provider? Yes 09/21/2023 Do you have access to a emory ce that would allow you to participate in virtual care with your provider, such as a laptop, computer, smart phone or tablet? Yes 09/21/19 24 Social Isolation Answer Date Recorded Within the last 12 months, h ow often do you feel isolated from others? 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 on file Not on file Not on file Last Filed Vital Signs Vital Sign Reading Time Taken Comments Blood Pressure 96/60 01/26/2024 9:05 AM EDT Pulse 85 01/26/2024 9:05 AM EDT Temperature 37 C (98.6 F) 01/23/2024 6:28 PM EDT Respiratory Rate 14 01/23/2024 6:28 PM EDT Oxygen Saturation 95% 01/23/2024 6:28 PM EDT Inhaled Oxygen Concentration - - Weight 91.2 kg (201 lb) 01/26/2024 9:05 AM EDT Height 160 cm (5' 3 ) 01/23/2024 2:03 PM EDT Body Mass Index 35.61 01/23/2024 2:03 PM EDT Plan of Treatment Health Maintenance Due Date Last Done Comments Cervical Cancer Screening: Cytology 10/09/2024 10/10/2023 COVID-19 Vaccine ( season) 2025 07/02/2023, 05/12/2021 Influenza Vaccine (#1) 2025 , 11/27/2020, 04/29/2019, Additional history exists DTaP,Tdap,and Td Vaccines (8 - Td or Tdap) 10/25/2031 10/24/2021, 12/19/2017, 02/26/2006, Additional history exists Respiratory Syncytial Virus (RSV) or ages 60 years and older (1 - 1-dose 75+ series) 2076 Pneumococcal Combined Aged Out 04/07/2002, 002 No longer eligible based on patient's age to complete this topic Hepatitis B Vaccine ages 19 years and older Completed 06/09/2002, 01/27/2002, 2001 Human Papillomavirus HPV Vaccine Completed 04/27/2018, 12/19/2017, 07/16/2017 Hepatitis C Screening Completed 11/08/2021 Respiratory Syncytial Virus (RSV) ages 0 thru 19 months Aged Out No longer el igible based on patient's age to complete this topic Medical Devices Implanted Type Area Hardwood Floor Sander Device Identifier Shelf Expiration Date Model / Serial / Lot Shunt, Alonzo 5fr X 1.5-3.5cm - [id number] Implanted:Qty: 1 on 08/20/2021 by Mary Dickens MD at [facility] [id number] / / Procedures Procedure Name Priority Date/Time Associated Diagnosis Comments CYTOLOGY POULTRY PROCESSING SUPERVISOR, SCREENING Routine 10/10/2023 9:50 AM EST Encounter for screening for malignant neoplasm of cervix HEPATITIS C ANTIBODY Routine 11/08/2021 11:26 AM EDT with 25 completed weeks gestation from Last 3 Months or Most Recently Relevant to Health Maintenance Results * (ABNORMAL) Thin Prep Pap, Screening (10/10/2023 9:50 AM EST) Pap Test, Screening CYTOPATHOLOGY GYNECOLOGIC REPORT Order Number: [id number] Date Received: 10/10/2023 2:34 PM Date Completed: 10/13/2023 12:11 PM Date Collected: 10/10/2023 9:50 AM Diagnosis: Low grade squamous intraepithelial lesion (ARMANDO I). Signing Rayray Case M.D. Cytopathologist: Adequacy: Satisfactory for evaluation. Transformation zone absent. Specimen: ThinPrep Pap Test, Screening Cervical/Endocervi kaylynn History: Electronically Signed By: Rayray Case M.D. I, the above named pathologist, have personally viewed and interpreted the slides from this patient's specimen. Electrotyper Apprentice(s ): JENN NICHOLSON , CPT Codes: Specimen CPT Code Number of Charges A 85676 1 A 89575 1 Performing site: [facility] Department of Pathology and Clinical Laboratories [address] [facility] [place] [address] KAT Wolfe MD Director: KAT Number: [id number] Performing site: [facility] [address] [place] [address] KAT Wolfe MD Director: KAT Number: [id number]) [facility] Cervix 10/10/2023 9:50 AM EST 10/10/2023 2:34 PM EST us Sunita Pedraza PRODUCTION METAL SPRAYER PATH/[facility] LABS Final Result Performing Organization Address City/[facility]/ZIP Co de Phone Number [facility] [address] [place] [address], [place] [phone] [facility] [address] [place] [address] * Hepatitis C Antibody (11/08/2021 11:26 AM EDT) Hepatitis C Ab, Qualitative Non-React mohinder Non-React [facility] Blood. 11/08/2021 11:2 6 AM EDT 11/08/2021 11:55 AM EDT us [place] MD LAB BLOOD TESTS Final Result [facility] [address] [place] [address], [place] [phone] from Last 3 Months or Most Recently Relevant to Health Maintenance Care Teams Material Stress Tester Relationship Specialty [place] [address] [facility] [place] [address] [facility] - General 03/02/25
--- OUTSIDE RECORDS SUMMARY | 2025-05-02 10:38 | XMS_ITS | Clinical Summary ---
Author Organization [facility] Address [id number] [place] [address] Care Team Providers Care Biology Lecturer Name Role Phone Edu Morales MD Primary Care Provider [phone] Allergies Active Allergy Reactions Criticality Noted Date Comments Peanut Rash,Shortness Of Breath High 08/20/2021 Medications famotidine (PEPCID) 20 mg tablet Take 1 tablet (20 mg total) by mouth in the morning and 1 tablet (20 mg total) before bedtime. 20 tablet 03/05/2025 Active Active Problems Problem Noted Date Diagnosed Date Chronic cholecystitis with calculus 04/05/2024 Gallbladder polyp 04/05/2024 Hypothyroidism 03/01/2024 Orthostatic hypotension 03/01/2024 Establishing care with new doctor, encounter for 03/01/2024 Syncope 02/29/2024 Encounters Date Type Department Care Team Description 03/05/2025 10:20 AM EDT - 03/05/2025 12:51 PM EDT Emergency [facility] - Emergency Department [address] [place] [phone] Sonya Maier DO Epigastric pain (Primary Dx) Discharge Disposition: Home 03/05/2025 Travel from Last 3 Months Family History Medical History Relation Name Comments No Known Problems Father Diabetes Maternal Grandfather Teo Hypertension Maternal Grandmother Pia Anemia Mother Relation Name Status Comments Father Maternal Grandfather Teo Maternal Grandmother Pia Mother Alive Social History Tobacco Use Types Packs/Day Years Used Date Smoking Tobacco: Former Smokeless Tobacco: Never Tobacco Cessation:Counseling Given: Not Answered Alcohol Use Standard Drinks/Week Comments Never 0 (1 standard drink = 0.6 oz pur e alcohol) [facility] Utilities Answer Date Recorded In the past 12 months has th e electric, gas, oil, or water company threatened to shut off services in your home? No 02/29/2024 PRAPARE - Transportation Answer Date Re corded In the past 12 months, has l ack of transportation kept you from medical appointments or from getting medications? No 02/09 In the past 12 months, has l ack of transportation kept you from meetings, work, or from getting things needed for daily living? No 02/29/2024 Housing Instability Answer Date Recorde d Are you worried or concerned that in the next two months you may not have stable housing that you own, rent or stay in as a part of a household? No 02/29/2024 Hunger Screening Answer Date Recorded Within the past 12 months we worried whether our food would run out before we got money to buy more. Never True 03/05/2025 Within the past 12 months th e food we bought just didn't last and we didn't have money to get more. Never True 03/05/2025 Comments No Sex and Gender Information Value Date Recorded Sex Assigned at Not on file Legal Sex Female 8:48 AM EDT Gender Identity Not on file Sexual Orientation Not on file Last Filed Vital Signs Vital Sign Reading Time Taken Comments Blood Pressure 93/48 03/05/2025 12:19 PM EDT Pulse 73 03/05/2025 12:19 PM EDT Temperature 36.9 C (98.4 F) 03/05/2025 10:43 AM EDT Respiratory Rate 22 03/05/2025 12:19 PM EDT Oxygen Saturation 97% 03/05/2025 12:19 PM EDT Inhaled Oxygen Concentration - - Weight 87.1 kg (192 lb) 03/05/2025 10:43 AM EDT Height 160 cm (5' 3 ) 01/24/2025 1:14 PM EDT Body Mass Index 34.01 01/24/2025 1:14 PM EDT Plan of Treatment Upcoming Encounters Date Type Department Care Team (Late st Contact Info) Description 07/19/2025 1:30 PM EST Office Visit [facility], A Department of [facility] [address] [phone] Casi Julio MD [address] [address] Health Maintenance Due Date Last Done Comments Depression Screening 2013 Adult BMI Follow Up Plan 12/02/2019 Pap Smear 2022 COVID-19 Vaccine (2 6 season) 2025 07/02/2023, 05/12/2021 Influenza Vaccine 04/11/2025 07/02/2023, , 04/29/2019, Additional history exists Adult BMI Screening 03/05/2026 03/05/2025 Tobacco Screening 03/05/2026 03/05/2025 DTaP,Tdap and Td Vaccines (8 - Td or Tdap) 10/25/2031 10/24/2021, 12/19/2017, 02/26/2006, Additional history exists Goals Goal Patient Goal Type Associated Problems Recent Progress Patient-Stated? Author <enter goal here> General Yes Nhung Jj, RN Note: Evaluation of progress towards goal: Patient plans for a safe discharge home self care with significant other support. Medical Devices Not on file Procedures Procedure Name Priority Date/Time Associated Diagnosis Comments ER EXTRA URINE STAT 03/05/2025 12:29 PM EDT TROP I, HIGH SENSITIVITY 1 HOUR STAT 03/05/2025 12:15 PM EDT XR CHEST 1 VW STAT 03/05/2025 12:07 PM EDT POCT , URINE (NUCG) Routine 03/05/2025 10:53 AM EDT BLUE TOP STAT 03/05/2025 10:48 AM EDT POCT NURSING URINE MACROSCOPIC UA Routine 03/05/2025 10:48 AM EDT LIPASE STAT Add-on 03/05/2025 10:48 AM EDT RAINBOW DRAW STAT 03/05/2025 10:48 AM EDT TROPONIN I, HIGH SENSITIVITY 0 HOUR STAT 03/05/2025 10:48 AM EDT MAGNESIUM STAT 03/05/2025 10:48 AM EDT TROPONIN I, HIGH SENSITIVITY 0 HOUR STAT 03/05/2025 10:48 AM EDT COMPREHENSIVE METABOLIC PANEL STAT 03/05/2025 10:48 AM EDT CBC WITH AUTO DIFFERENTIAL STAT 03/05/2025 10:48 AM EDT ECG 12-LEAD STAT 03/05/2025 10:19 AM EDT from Last 3 Months Results * Er Extra Urine (03/05/2025 12:29 PM EDT) Extra Tube Auto Resulted 03/05/2025 2:01 PM EDT [facility] Urine Urine / Unknown 03/05/2025 1 2:29 PM EDT 03/05/2025 12:29 PM EDT us Sonya Maier DO URINE ORDERABLES Final Result [facility] [address] [place] [address], [place] [phone] * Troponin I, High Sensitivity 1 Hour (03/05/2025 12:15 PM EDT) TROPONIN I, HIGH SENSITIVITY <2 <16 ng/L 03/05/2025 12:46 PM EDT [facility] Blood Venous blood / Unknown 03/05/2025 12:15 PM EDT 03/05/2025 12:18 PM EDT us Kayla Gamaliel Pardo CHIEF DIGITAL OFFICER-ANIMAL DAYCARE PROVIDER LAB BLOOD ORDERABLES Fi nal Result [facility] [address] [place] [address], [place] * X-ray chest 1 view (03/05/2025 12:07 PM EDT) Anatomical Region Laterality Modality Body, Chest N/A Computed Radiogr aphy 03/05/2025 12:1 0 PM EDT Narrative 03/05/2025 12:16 PM EDT XR CHEST 1 VW HISTORY: Chest pain COMPARISON: Radiograph 03/14/2024 FINDINGS: AP upright film obtained. The cardiomediastinal silhouette is within normal limits. No significant pleural effusion. No focal consolidation. No measurable pneumothorax. IMPRESSION: No evidence of acute cardiopulmonary process. Approved by Caitie Sinclair DO on 03/05/2025 12:10 PM Jaison Tobar MD have personally reviewed the image(s) and agree with and/or edited the report Finalized by Jaison Gill MD on 03/05/2025 12:16 PM Procedure Note Jaison Gill MD - 03/05/2025 XR CHEST 1 VW HISTORY: Chest pain COMPARISON: Radiograph 03/14/2024 FINDINGS: AP upright film obtained. The cardiomediastinal silhouette is withinnormal limits. No significant pleural effusion. No focal consolidation. Nomeasurable pneumothorax. IMPRESSION: No evidence of acute cardiopulmonary process. Approved by Caitie Sinclair DO on 03/05/2025 12:10 PM Jaison Tobar MD have personally reviewed the image(s) and agreewith and/or edited the report Finalized by Jaison Gill MD on 03/05/2025 12:16 PM us Kayla N Parquette CHIEF DIGITAL OFFICER-ANIMAL DAYCARE PROVIDER IMG DIAGNOSTIC IMAGING ORDERABLES Final Result * POCT , urine (03/05/2025 10:53 AM EDT) [facility] POC Urine Negative Negative, Indeterminate 03/05/2025 10:49 AM EDT [facility] Urine 03/05/2025 10:5 3 AM EDT 03/05/2025 10:49 AM EDT us POINT OF CARE TEST ORDERABLES Fi nal Result Performing Organization Address City/[facility]/ZIP Co de Phone Number [facility] [address] [place] [address], [place] * Troponin I, High Sensitivity 0 Hour (03/05/2025 10:48 AM EDT) [facility] TROPONIN I, HIGH SENSITIVITY <2 <16 ng/L 03/05/2025 11:29 AM EDT [facility] Blood Venous blood / Unknown 03/05/2025 10:48 AM EDT 03/05/2025 11:06 AM EDT us Kayla KIRK LAB BLOOD ORDERABLES Fi nal Result Performing Organization Address City/[facility]/ZIP Co de Phone Number [facility] [address] [place] [address], [place] * (ABNORMAL) POCT Nursing Urine Macroscopic UA (03/05/2025 10:48 AM EDT) [facility] POC Urine Specific [place] 1.025 1.010, 1.015, 1.020, 1.025 03/05/2025 10:45 AM EDT [facility] POC Urine Leukocyte Esterase Trace(A) Negative 03/05/2025 10:45 AM EDT [facility] POC Urine Nitrite Negative Negative 03/05/2025 10:45 AM EDT [facility] POC Urine pH 7.0 5.0, 6.0, 6.5, 7.0, 7.5, 8.0, 8.5, 5.5 03/05/2025 10:45 AM EDT [facility] POC Urine Protein Trace(A) Negative 03/05/2025 10:45 AM EDT [facility] POC Urine Glucose Negative Negative 03/05/2025 10:45 AM EDT [facility] POC Urine Ketones Negative Negative 03/05/2025 10:45 AM EDT [facility] POC Urine Urobilinogen 0.2 E.U./dL 03/05/2025 10:45 AM EDT [facility] POC Urine Bilirubin Negative Negative 03/05/2025 10:45 AM EDT [facility] POC Urine Blood/HGB Small(A) Negative 03/05/2025 10:45 AM EDT [facility] Urine 03/05/2025 10:4 8 AM EDT 03/05/2025 10:45 AM EDT us POINT OF CARE TEST ORDERABLES Fi nal Result Performing Organization Address City/State/[facility] Co de Phone Number [facility] [address] [place] [address], * CBC auto differential (03/05/2025 10:48 AM EDT) WBC 7.8 4 - 11 x10E9/L 03/05/2025 11:13 AM EDT [facility] RBC Count 4.08 3.8 - 5.2 X10E12/L 03/05/2025 11:13 AM EDT [facility] Hemoglobin 12.0 11.7 - 15.5 g/dL 03/05/2025 11:13 AM EDT [facility] Hematocrit 35.5 35 - 47 % 03/05/2025 11:13 AM EDT [facility] MCV 87 80 - 100 fL 03/05/2025 11:13 AM EDT [facility] MCH 29.3 27 - 34 pg 03/05/2025 11:13 AM EDT [facility] MCHC 33.8 32 - 36 g/dL 03/05/2025 11:13 AM EDT [facility] RDW 13.9 11.5 - 15 % 03/05/2025 11:13 AM EDT [facility] Platelet Count 305 150 - 450 X10E9/L 03/05/2025 11:13 AM EDT [facility] MPV 8.1 7 - 12 fL 03/05/2025 11:13 AM EDT [facility] Neutrophils % 60.6 % 03/05/2025 11:13 AM EDT [facility] Lymphocytes % 29.4 % 03/05/2025 11:13 AM EDT [facility] Monocytes % 8.2 % 03/05/2025 11:13 AM EDT [facility] Eosinophils % 1.1 % 03/05/2025 11:13 AM EDT [facility] Basophils % 0.7 % 03/05/2025 11:13 AM EDT [facility] Neutrophils Absolute (A) 4.7 1.5 - 6.6 10*3/uL 03/05/2025 11:13 AM EDT [facility] Lymphocytes Absolute 2.3 1.0 - 3.5 10*3/uL 03/05/2025 11:13 AM EDT [facility] Monocytes Absolute 0.6 0.0 - 0.9 10*3/uL 03/05/2025 11:13 AM EDT [facility] Eosinophils Absolute 0.1 0.0 - 0.4 10*3/uL 03/05/2025 11:13 AM EDT [facility] Basophils Absolute 0.1 0.0 - 0.2 10*3/uL 03/05/2025 11:13 AM EDT [facility] Differential Type AUTOMATED DIFFERENTIAL 03/05/2025 11:13 AM EDT [facility] Blood Venous blood / Unknown 03/05/2025 10:48 AM EDT 03/05/2025 11:08 AM EDT us Kayla N Parquette CHIEF DIGITAL OFFICER-ANIMAL DAYCARE PROVIDER LAB BLOOD ORDERABLES Fi nal Result [facility] [address] [place] [address], [place] [phone] * Light Blue Top (03/05/2025 10:48 AM EDT) Extra Tube Auto Resulted 03/05/2025 12:02 PM EDT [facility] Blood Venous blood / Unknown 03/05/2025 10:48 AM EDT 03/05/2025 11:08 AM EDT Sonya Soto [facility] DO LAB BLOOD ORDERABLES Fi nal Result [facility] [address] [place] [address], * Magnesium (03/05/2025 10:48 AM EDT) MAGNESIUM 1.9 1.8 - 2.6 mg/dL 03/05/2025 12:05 PM EDT [facility] Blood Venous blood / Unknown 03/05/2025 10:48 AM EDT 03/05/2025 11:08 AM EDT Kayla Pardo CHIEF DIGITAL OFFICER-ANIMAL DAYCARE PROVIDER LAB BLOOD ORDERABLES Fi nal Result [facility] [address] [place] [address], [place] [phone] * Lipase (03/05/2025 10:48 AM EDT) LIPASE 16 11 - 82 U/L 03/05/2025 11:49 AM EDT [facility] Blood Venous blood / Unknown 03/05/2025 10:48 AM EDT 03/05/2025 11:08 AM EDT Sonya Huberbarnstead DO LAB BLOOD ORDERABLES Fi nal Result [facility] [address] [place] [address], * (ABNORMAL) Comprehensive metabolic panel (03/05/2025 10:48 AM EDT) SODIUM 139 134 - 146 mmol/L 03/05/2025 11:49 AM EDT [facility] POTASSIUM 3.7 3.5 - 5.0 mmol/L 03/05/2025 11:49 AM EDT [facility] CHLORIDE 107 98 - 109 mmol/L 03/05/2025 11:49 AM EDT [facility] CARBON DIOXIDE 26 22 - 32 mmol/L 03/05/2025 11:49 AM EDT [facility] ANION GAP 6 5 - 15 mmol/L 03/05/2025 11:49 AM EDT [facility] BLOOD UREA NITROGEN 8 5 - 23 mg/dL 03/05/2025 11:49 AM EDT [facility] CREATININE 0.39(L) 0.40 - 1.00 mg/dL 03/05/2025 11:49 AM EDT [facility] Comment:METHOD TRACEABLE TO IDMS STANDARD GLUCOSE 95 65 - 99 mg/dL 03/05/2025 11:49 AM EDT [facility] CALCIUM 8.9 8.5 - 10.5 mg/dL 03/05/2025 11:49 AM EDT [facility] TOTAL PROTEIN 6.9 6.0 - 8.0 g/dL 03/05/2025 11:49 AM EDT [facility] ALBUMIN 4.2 3.2 - 5.3 g/dL 03/05/2025 11:49 AM EDT [facility] ALKALINE PHOSPHATASE 71 39 - 130 U/L 03/05/2025 11:49 AM EDT [facility] AST 23 <=41 U/L 03/05/2025 11:49 AM EDT [facility] ALT 19 <=31 U/L 03/05/2025 11:49 AM EDT [facility] BILIRUBIN,TOTAL 0.3 0.3 - 1.2 mg/dL 03/05/2025 11:49 AM EDT [facility] EGFR Non-Race Dependent >90 >=60 ml/min/1.7 3sq.m 03/05/2025 11:49 AM EDT [facility] Comment: Reported eGFR is based on the CKD-EPI 2020 equation that does not use a race coefficient. Blood Venous blood / Unknown 03/05/2025 10:48 AM EDT 03/05/2025 11:08 AM EDT Kayla Pardo CHIEF DIGITAL OFFICER-ANIMAL DAYCARE PROVIDER LAB BLOOD ORDERABLES Fi nal Result [facility] [address] [place] [address], [place] [phone] * ECG 12 lead (03/05/2025 10:19 AM EDT) 03/05/2025 10:1 9 AM EDT Narrative TRACEMASTERVUE - 03/07/2025 7:55 AM EDT Sonya Maier DO ECG ORDERABLES Final R esult TRACEMASTERVUE from Last 3 Months Insurance [facility] MEDICAID Advance Directives * Full Code (Latest Code Status on File) Date Activated Date Inactivated Comments 02/29/2024 9:03 PM 03/01/2024 7:55 PM Care Teams Biology Lecturer Relationship Specialty Start Date End Date Edu Morales MD [address] [address] PCP - General Internal Medicine 11/19/24
--- OUTSIDE RECORDS SUMMARY | 2025-05-02 10:38 | XMS_ITS | Clinical Summary ---
Author Organization [facility] Healthcare Address [address] [facility] [place] [address] Care Team Providers Care Family Advocate Name Role Phone Villa Overton Primary Care Provider [phone] Allergies No known active allergies Medications ondansetron (Zofran) 4 MG tabletIndicatio ns:Nausea and vomiting in ([facility]) Take 1 tablet (4 mg) by mouth every 6 (six) hours if needed for nausea or vomiting for up to 120 doses Take 1 tablet by mouth every 6 hours as needed for nausea. 30 tablet 3 04/22/2025 Active Encounters Date Type Department Care Team Description 04/22/2025 10:30 AM EDT [place] [address] GA: [id number] 04/22/2025 10:00 AM EDT [place] [address] Missed menses; Positive urine test ([facility]) from Last 3 Months Social History Tobacco Use Types Packs/Day Years Used Date Smoking Tobacco: Never Assessed Estimated Date of Delivery Comme nts Yes 11/28/2025 Based on last me nstrual period of 02/21/2025 Sex and Gender Information Value Date Recorded Sex Assigned at Not on file Legal Sex Female 12:26 PM EDT Gender Identity Not on file Sexual Orientation Not on file Plan of Treatment Upcoming Encounters Date Type Department Care Team (Late st Contact Info) Description 05/26/2025 11:40 AM [place] [address] David South, DO [address] [place] [address] [place] [address] Procedures Procedure Name Priority Date/Time Associated Diagnosis Comments POCT , URINE Routine 04/28/2025 2:46 PM EDT Missed menses POCT URINALYSIS DIPSTICK Routine 04/28/2025 2:45 PM EDT Missed menses US OB TRANSVAGINAL Routine 04/22/2025 10 :26 AM EDT Missed menses Positive urine test ([facility]) from Last 3 Months Results * (ABNORMAL) POCT , urine manually resulted (04/28/2025 2:46 PM EDT) Preg Test, Ur Positive Negative Urine 04/28/2025 2:46 PM EDT David South DO POINT OF CARE TEST ENTER/EDIT OR [...] - Positive Urine 04/28/2025 2:45 PM EDT us David Brannon DO POINT OF CARE TEST [...] IMG OB US PROCEDURES Final Resul t from Last 3 Months Insurance [employer] MED[employer]ID [place] Care Teams Family Advocate Relationship Specialty Start Date End Date Villa Overton PA [address] [place] [address] PCP - General Family Medicine 04/22/25
--- OUTSIDE RECORDS SUMMARY | 2025-05-02 10:38 | XMS_ITS | Encounter Summary ---
Author Organization [facility] Address [id number] [place] [address] Care Team Providers Care Top Former Name Role Phone Edu Morales MD Primary Care Provider [phone] Encounter Details Date Type Department Care Team (Late st Contact Info) Description 03/01/2024 Orders Only [facility] [employer] [address] [place] [phone] Transcribe, Orders Support User Pain (Primary Dx) Social History Tobacco Use Types Packs/Day Years Used Date Smoking Tobacco: Former Cigarettes Smokeless Tobacco: Never Alcohol Use Standard Drinks/Week Comments Never 0 (1 standard drink = 0.6 oz pur e alcohol) [facility] Utilities Answer Date Recorded In the past 12 months has e electric, gas, oil, or water company [...] got money to buy more. Never True 02/29/2024 Within the past 12 months th e food we bought just didn't last and we didn't have money to get more. Never True 02/29/2024 Comments Yes Sex and Gender Information Value Date Recorded Sex Assigned at Not on file Legal Sex Female 8:48 AM EDT Gender Identity Not on file Sexual Orientation Not on file documented as of this encounter Functional Status documented as of this encounter Plan of Treatment Upcoming Encounters Date Type Department Care Team (Late st Contact Info) Description 07/19/2025 1:30 PM EST Office Visit [facility] Adult Endocrinology, A Department of [facility] [address] [phone] Casi Julio MD [address] [address] documented as of this encounter Goals Goal Patient Goal Type Associated Problems Recent Progress Patient-Stated? Author <enter goal here> General Yes Nhung Jj, RN Note: Evaluation of progress towards goal: Patient plans for a safe discharge home self care with significant other support. documented as of this encounter Results * X-ray chest 1 view (02/28/2024 4:45 PM EDT) us Scanning Provider External IMG DIAGNOSTIC IMAGIN G ORDERABLES Final Result * Ultrasound pelvic with transvaginal (02/28/2024 12:40 PM EDT) us Scanning Provider External IMG US ORDERABLES Fin al Result documented in this encounter Visit Diagnoses Diagnosis Pain- Primary Generalized pain documented in this encounter Care Teams Top Former Relationship Specialty Start Date End Date Edu Morales MD [address] [address] PCP - General Internal Medicine 11/19/24 documented as of this encounter
--- OUTSIDE RECORDS SUMMARY | 2025-05-02 10:38 | XMS_ITS | Referral Summary ---
Author Organization [employer] ([facility] 02/29/2024) ([place], [place], [place]) Address [address] [place] [address] Care Team Providers Care Desk Sergeant Name Role Phone Buzz Bland Primary Care Provider [phone] Allergies Active Allergy Reactions Criticality Noted Date Comments Peanut-Containing Drug Products Rash/Itching High Medications Vit-Fe Fumarate-FA ( vitamin) 27-0.8 MG PO Tab take 1 Tablet by mouth once daily. Active silver sulfADIAZINE (Silvadene) 1 % EXTERNAL CreamIndications: Chemical burn apply to affected area twice daily. 50 g Active Social History Tobacco Use Types Packs/Day Years Used Date Smoking Tobacco: Never Smokeless Tobacco: Never Alcohol Use Standard Drinks/Week Comments Never 0 (1 standard drink = 0.6 oz pur e alcohol) [place] Depression Scale Answer Date Recorded [place] Depression Scale Total 0 10/09/2021 The thought of harming myself has occurred to me . Never 10/09/2021 Comments No Sex and Gender Information Value Date Recorded Sex Assigned at Not on file Legal Sex Female 10:48 PM EDT Gender Identity Not on file Sexual Orientation Not on file Last Filed Vital Signs Vital Sign Reading Time Taken Comments Blood Pressure 107/62 03/04/2022 10:09 AM EDT Pulse 87 03/04/2022 10:09 AM EDT Temperature 36.4 C (97.5 F) 03/04/2022 10:09 AM EDT Respiratory Rate 22 03/04/2022 10:09 AM EDT Oxygen Saturation 98% 03/04/2022 10:09 AM EDT Inhaled Oxygen Concentration - - Weight 79.4 kg (175 lb) 03/04/2022 10:09 AM EDT Height 160 cm (5' 3 ) 03/04/2022 10:09 AM EDT Body Mass Index 31 03/04/2022 10:09 AM EDT Functional Status * Pt is deaf or has difficulty hearing? Answer Date of Assessment Author No 10/09/2021 5:21 PM Isabel Langford RN * Pt is blind or has difficulty seeing even when wearing glasses? Answer Date of Assessment Author No 10/09/2021 5:21 PM Isabel Langford RN * Pt has difficulty walking, climbing stairs, or getting in and out of bed? Answer Date of Assessment Author No 10/09/2021 5:21 PM Isabel Langford RN * Pt has difficulty feeding, dressing, bathing, grooming, or toileting? Answer Date of Assessment Author No 10/09/2021 5:21 PM Isabel Langford RN * Pt has difficulty doing errands alone r/t physical/mental/emotional condition? Answer Date of Assessment Author No 10/09/2021 5:21 PM Isabel Langford RN Mental Status * Pt has difficulty w/concentration, memory, or decision-making r/t physical/mental/emotional condition? Answer Entry Date Author No 10/09/2021 5:21 PM Isabel Langford RN Plan of Treatment Not on file Procedures Procedure Name Priority Date/Time Associated Diagnosis Comments CHLAMYDIA TRACHOMATIS NEISSERIA GONORRHOEAE DNA BY MARIELY Routine 01/17/2021 12:01 AM EDT Sexually transmitted disease from Last 3 Months or Most Recently Relevant to Health Maintenance Results * (ABNORMAL) Chlamydia trachomatis, Neisseria gonorrhoeae DNA By Nucleic Acid Amplification (01/17/2021 12:01 AM EDT) Specimen Submitted Cervix 01/19/2021 2:54 PM EDT [facility] (CLIA #: [id number]) Chlamydia trachomatis DNA Indeterminate(A) Not Detected 01/19/2021 2:54 PM EDT [facility] (CLIA #: [id number]) Neisseria gonorrhoeae DNA Indeterminate(A) Not Detected 01/19/2021 2:54 PM EDT [facility] (CLIA #: [id number]) Comment Unable to verify the presence of Neisseria gonorrhoeae. Suggest repeat testing if clinically indicated. 01/19/2021 2:54 PM EDT [facility] (CLIA #: [id number]) Methodology Nucleic acid amplification This test has been approved by the FDA for the qualitative detection of Chlamydia trachomatis and/or Neisseria gonorrhoeae from urogenital specimens. Test performance characteristics using alternate specimen sources (i.e., conjunctiva, rectum, throat) have not been established by this laboratory. Test results should be correlated with the patient's clinical presentation. 01/19/2021 2:54 PM EDT [facility] (CLIA #: [id number]) Swab SPECIMEN FROM UTERINE CERVIX / Unknown 01/17/2021 12:01 AM EDT 01/18/2021 12:59 AM EDT us Francia Carlton CNM LAB MOLECULAR ORDERABLES [facility] Result [facility] (CLIA #: [id number]) [id number] [facility] [place] [id number] from Last 3 Months or Most Recently Relevant to Health Maintenance Care Teams Desk Sergeant Relationship Specialty Start Date End Date Baldo Buzz [address] [place] [phone] PCP - General 12/19/20
--- OUTSIDE RECORDS SUMMARY | 2025-05-02 10:38 | XMS_ITS | Clinical Summary ---
Author Organization [employer] ([facility] 02/29/2024) ([place], [employer]) Address [address] [place] [address] Care Team Providers Care Putty Tinter Maker Name Role Phone Buzz Bland Primary Care Provider [phone] Allergies Active Allergy Reactions Criticality Noted Date [...] drink = 0.6 oz pur e alcohol) [place] Depression Scale Answer Date Recorded [place] Depression Scale Total 0 10/09/2021 The thought [...] Mass Index 31 03/04/2022 10:09 AM EDT Plan of Treatment Health Maintenance Due Date Last Done Comments SCREENING: HEPATITIS C 2001 SCREENING: DEPRESSION 2013 SCREENING:HIV 2016 HEALTH MAINTENANCE EXAM (ADULT) 2020 VACCINE: TETANUS,DIPHTHERIA BOOSTER (TD BOOSTER) EVERY 10 YEARS 2020 VACCINE: TETANUS,DIPHTHERIA,PERTUSSI S (TDAP) FIRST DOSE ADULT 2020 SCREENING: CHLAMYDIA 01/17/2022 01/17/2021 Pap Smear 2022 VACCINE: INFLUENZA (#1) 2025 11/28/19 21, 04/29/2019, 04/27/2018, Additional history exists VACCINE: COVID-19 ( season) 2025 05/12/2021 Pneumococcal Vaccine: Pediatrics (0 to 5 Years) and At-Risk Patients (6 to 64 Years) Aged Out 04/07/2002, 01/27/2002 No longer eligibl e based on patient's age to complete this topic VACCINE: HEPATITIS B Completed 06/09/2002, 01/27/2002, 2001 Vaccines: HIB Completed 02/02/2003, 05/13, 04/07/2002, Additional history exists Vaccines: IPV Completed 02/26/2006, 01/10, 04/07/2002, Additional history exists Vaccines: MMR Discontinued 02/26/2006, 02/02/2003 VACCINE: HEPATITIS A Completed 07/16/2017, 03/27/20 07 Vaccines: Varicella Discontinued 07/16/2017, 3 Vaccines: Meningococcal Completed 12/19/2017 Vaccines: HPV Completed 04/27/2018, 12/09, 07/16/2017 Vaccines: Meningococcal B Completed 06/30/2018, Vaccines: Rotavirus Aged Out No longe r eligible based on patient's age to complete this topic Procedures Procedure Name Priority Date/Time Associated Diagnosis Comments CHLAMYDIA TRACHOMATIS NEISSERIA GONORRHOEAE DNA BY MARIELY Routine 01/17/2021 12:01 AM EDT Sexually transmitted disease from Last 3 Months or Most Recently Relevant to Health Maintenance Results * (ABNORMAL) Chlamydia trachomatis, Neisseria gonorrhoeae DNA By Nucleic Acid Amplification (01/17/2021 12:01 AM EDT) Specimen Submitted Cervix 01/19/2021 2:54 PM EDT [facility] (CLIA #: [id number]) Chlamydia trachomatis DNA Indeterminate(A) Not Detected 01/19/2021 2:54 PM EDT [facility] (CLIA #: [id number]) Neisseria gonorrhoeae DNA Indeterminate(A) Not Detected 01/19/2021 2:54 PM EDT [facility] (CLIA #: [id number]) Comment Unable to verify the presence of Neisseria gonorrhoeae. Suggest repeat testing if clinically indicated. 01/19/2021 2:54 PM EDT [facility] (CLIA #: [id number]) Methodology Nucleic acid amplification This test has been approved by the FDA for the qualitative detection of Chlamydia trachomatis and/or Neisseria gonorrhoeae from urogenital specimens. Test performance characteristics using alternate specimen sources (i.e., conjunctiva, rectum, throat) have not been established by this laboratory. Test results should be correlated with the patient's clinical presentation. 01/19/2021 2:54 PM EDT [facility] (CLIA #: [id number]) Swab SPECIMEN FROM UTERINE CERVIX / Unknown 01/17/2021 12:01 AM EDT 01/18/2021 12:59 AM EDT us Francia Carlton CNM LAB MOLECULAR ORDERABLES [facility] Result [facility] (CLIA #: [id number]) [address] [facility] [place] [id number] from Last 3 Months or Most Recently Relevant to Health Maintenance Care Teams Putty Tinter Maker Relationship Specialty Start Date End Date Buzz Bland [id number] [address] [place] [phone] PCP - General 12/19/20
[2025-05-02 11:26] LABS: Hematocrit 34.8 % (36.0-48.0); Hemoglobin 12.0 g/dL (12.0-16.0); Immature Granulocytes Abs Auto 0.01 10^3/uL (0.00-0.03); Immature Granulocytes Pct Auto 0.1 % (0.0-0.5); Lymphocytes Absolute Auto 1.9 10^3/uL (1.2-3.8); Mean Corpuscular HGB Conc 34.5 g/dL (29.9-35.2); Mean Corpuscular Hemoglobin 30.7 pg (26.7-34.0); Mean Corpuscular Volume 89.0 fL (81.0-99.0); Platelet Count 307 10^3/uL (150-450); Red Blood Count 3.91 10^6/uL (4.20-5.40); White Blood Count 7.0 10^3/uL (4.0-11.0)
[2025-05-02 11:44] LABS: Cannabinoid Screen Urine NEGATIVE (NEGATIVE); Methamphetamines Screen Urine NEGATIVE (NEGATIVE); Tricyclic Antidepressant Urine NEGATIVE (NEGATIVE)
[2025-05-02 11:46] LABS: Thyroid Stimulating Hormone 5.410 uIU/mL (0.358-3.740)
[2025-05-03 07:07] LABS: Rubella Antibodies, IgG 1.04 index (Immune >0.99)
[2025-05-03 13:09] LABS: Rapid Plasma Reagin, Quant Non Reactive titer (NonRea<1:1)
== END 2025-05-02 10:29 | disposition home or self-care (01) ==
PROVIDERS: PCP Physician Assistant; Visit Provider Obstetrics & Gynecology
DX: Z34.01 Encounter for supervision of normal first pregnancy, first trimester (principal); N92.6 Irregular menstruation, unspecified; E07.9 Disorder of thyroid, unspecified
CPT/HCPCS: 36415; 80307; 83036; 84443; 85025; 86592; 86762; 86803; 86850; 86900; 86901; 87086; 87340; 87389

== ENCOUNTER 2025-06-28 19:08 | Outpatient (REF) | payer MEDICAID, SELFPAY ==
--- OUTSIDE RECORDS SUMMARY | 2025-06-28 19:14 | XMS_ITS | CCD ---
Author Organization [facility] Care Team Providers Care Casing Flusher Name Role Phone MELISSA HERNANDEZ Referring Unavail able Le, Scott K Attending Unavailable Le, Scott K Admitting Unavailable Provider, None Primary Care Unavailable ZACH, TOMI M Attending Unavailable GABRIEL BOOKER Referring Unavailable PCP, NOT IN SYSTEM Primary Care Unavailable ZACH, TOMI M Admitting Unavailable ZACH, TOMI M Attending Unavailable ZACH, TOMI M Referring Unavailable PCP, NOT IN SYSTEM Primary Care Unavailable YAMEL JAY Attending Unavailable PCP, NOT IN SYSTEM Primary Care Unavailable Unavailable Primary Care Provider Unavailabl e PCP, NOT IN SYSTEM Primary Care Unavailable JOSEDIANE LARESD Attending Unavailable RANJITH KIRBY Attending Unavailable KIRBY, RANJITH Referring Unavailable PCP, NOT IN SYSTEM Primary Care Unavailable RANJITH KIRBY Attending Unavailable KIRBY, RANJITH Referring Unavailable PCP, NOT IN SYSTEM Primary Care Unavailable DIANE GARCIAD Attending Unavailable JOSE, AHMAD Referring Unavailable PCP, NOT IN SYSTEM Primary Care Unavailable GABRIEL BOOKER Referring Unavailable PCP, NOT IN SYSTEM Primary Care Unavailable GABRIEL BOOKER Referring Unavailable PCP, NOT IN SYSTEM Primary Care Unavailable PCP, NOT IN SYSTEM Primary Care Unavailable PCP, NOT IN SYSTEM Primary Care Unavailable JONATHAN LEMA Attending Unavailable JAREK WILKES Referring Unavailable NARRA, GIL Primary Care Unavailable SAMIRA, CECILY L Referring Unavailable NARRA, GIL Primary Care Unavailable SAMIRA, CECILY L Referring Unavailable NARRA, GIL Primary Care Unavailable PCP, NOT IN SYSTEM Primary Care Unavailable PCP, NOT IN SYSTEM Primary Care Unavailable PCP, NOT IN SYSTEM Primary Care Unavailable PCP, NOT IN SYSTEM Primary Care Unavailable GABRIEL BOOKER Attending Unavailable [place] Referring Unavailable PCP, NOT IN SYSTEM Primary Care Unavailable SAMIRA, CECILY L Attending Unavailable NARRA, GIL Referring Unavailable NARRA, GIL Primary Care Unavailable SAMIRA, CECILY L Attending Unavailable GIL DEWEY Referring Unavailable GIL DEWEY Primary Care Unavailable GIL DEWEY Primary Care Unavailable WILL HARRIS Attending Unavailab Gabriel Jenkins Primary Care Provider [phone] Gabriel Foley Primary Care Provider [phone] DAVID SOUTH Attending Unavailable Allergies Allergy ClassificationReported Allergen(s)Allergy TypeDate of OnsetReaction(s) Facility (6 sources)peanut allergenic extract; Translations: [PEANUT]Drug Allergy 45-46-5990KffSudohb Repository (3 sources)Peanut-Containing Drug ProductsPropensity to adverse reactions to ztko08-41-6091Rinc, Shortness of breathB[facility] Medications Current Medications MedicationDrug Class(es)DatesSig (Normalized)Sig (Original)levothyroxine sodium 0.1 mg oral tablet (8 sources)l-ThyroxineStart: 05-02-2025 End: 48-63-6206sbol 1 tablet by mouth before mealtimelevothyroxine (Synthroid) 100 MCG tablet Indications: Thyroid disease Take 1 tablet (100 mcg) by mouth in the morning. Take before meals. 30 tablet 11 05/02/2025 05/02/2026 Activetake 1 tablet by mouth before mealtimelevothyroxine (Synthroid, Levoxyl) 75 MCG tablet Take 75 mcg by mouth in the morning. Take before meals. Activeondansetron 4 mg oral tablet (6 sources)Serotonin-3 Receptor AntagonistStart: 95-95-3517pidt 1 tablet by mouth every six hours as needed for nausea and nausea, then take 1 tablet by mouthevery six hours as needed for nausea and nauseaondansetron (Zofran) 4 MG tablet Indications: Nausea and vomiting in ([facility]) Take 1 tablet (4 mg) by mouth every 6 (six) hours if needed for nausea or vomiting for up to 120 doses Take 1 tablet by mouth every 6 hours as needed for nausea. 30 tablet 3 04/22/2025 Active Problems Active Problems Problem ClassificationProblemDateDocumented DateEpisodic/ChronicAbdominal pain (7 sources)Unspecified abdominal pain; Translations: [Abdominal pain]Onset: 36-27-0396JzfophscXsxtgsn tract disease (3 sources)Cholesterolosis of gallbladder; Translations: [Calculus of gallbladder without cholecystitis without obstruction]Onset: 33-92-9221Xnhylfkb Female infertility (2 sources)Female infertility, unspecified; Translations: [Female infertility, unspecified]Onset: 78-90-3288UdekemjMpclsfcyy disorders (5 sources)Amenorrhea, unspecified; Translations: [Amenorrhea]Onset: 02-04-2024 45-36-1438RfjktyeVopa disorders (1 source)Severe major depression, single episode, without psychotic features; Translations: [Major depressive disorder, single episode, severe without psychotic features]Onset: 561804-07-5771MvullnoWghgzroiyrh chest pain (6 sources)Chest pain, unspecified; Translations: [Chest pain]Onset: 03-14-2024 EpisodicOther complications of (1 source)Vomiting of , unspecified; Translations: [Unspecified vomiting of , unspecified as to episode of care or not applicable] 94-68-7056PlokayvcGgumd nervous system disorders (1 source)Other acute postprocedural pain; Translations: [Other acute postprocedural pain]Onset: 29-06-3339JbnbdbgxGdjiw and delivery including normal (7 sources)Encounter for supervision of other normal , first trimester; Translations: [Normal ]Onset: 249580-36-3600ChabhtkiTnuycyot codes; unclassified (1 source)Less than 8 weeks gestation of ; Translations: [Less than 8 weeks gestation of ]Onset: 72-21-2328NnfzbvtsVukwrmme codes; unclassified (2 sources)Gestation period, 13 weeks; Translations: [13 weeks gestation of ]90-22-2162QaccgaglNltqjqxajkq; intervertebral disc disorders; other back problems (1 source)BackacheOnset: 62-80-8667YrlptjxxEkebtsq disorders (2 sources)Hypothyroidism, unspecified; Translations: [Hypothyroidism, unspecified]Onset: 05-18-8022KwlxsuzMzkwsgu disorders (3 sources)Disorder of thyroid gland; Translations: [Disorder of thyroid, unspecified]12-15-9817FlrvteezOcyjkjklepni (1 source)CholelithiasisOnset: 88-80-4199Ctabwrldarzi (1 source)InfertilityOnset: 69-91-3292Yebzhdesweie (1 source)New PatientOnset: 03-15-2024 Past or Other Problems Problem ClassificationProblemDateDocumented DateEpisodic/Chronic Administrative/social admission (1 source)Persons encountering health services in other specified circumstances; Translations: [Persons encountering health services in other specified circumstances]Onset: 76-55-6271RxzjjdmlEepbbwtehha deficiencies (2 sources)Deficiency of other specified B group vitamins; Translations: [Deficiency of other specified B group vitamins]Onset: 81-94-6719CyodnyasMcxsq complications of (1 source)Missed ; Translations: [Missed ]Onset: 03-15-2024 EpisodicResidual codes; unclassified (1 source)Gestation period, 6 weeks; Translations: [Less than 8 weeks gestation of ]13-46-8522CybtemljLarcfcub codes; unclassified (1 source)Pain, unspecified; Translations: [Pain, unspecified]Onset: 03-01-2024 Episodic Results Test NameValueInterpretationReference RangeFacilityUrinalysis macro (dipstick) panel (U)on 70-55-0577Ftrnqienu, UANegativeNegative - 4(70) +++ mg/dLNOMS HealthcareBlood, UANegativeNegative - 50 Byron/mcLNOMS HealthcareClarity, UACloudy NOMS HealthcareColor, UALight YellowNOMS HealthcareGlucose, UANegativeNegative - 1999(110) ++++ mg/dLNOMS HealthcareInterpretation and review of laboratory resultsAbnormalNOMS HealthcareKetones, UANegativeNegative - 160(16) ++++ mg/dL NOMS HealthcareLeukocytes, UA3+Negative - 500+++ Robby/mcLNOMS HealthcareNitrite, UANegativeNegative - PositiveNOMS HealthcarepH, UA8.05 - 9N[facility] Healthcare Protein, UANegativeNegative - 2000(20) ++++ mg/dLNOMS HealthcareSpec Grav, UA 1.0151 - 1.03NOMS HealthcareUrobilinogen, UA1.00.2 - 12 mg/dLNOMS HealthcareNOIL HealthcareBOX TESTon 89-42-8604PKO TEST SENT OUTUNITYNOIL MgiwywbyfbMMQ8MYYUJ [facility] JanhjpjwuhDJQ04/22/25NOIL HealthcareCLINISYNCNOMS HealthcareHCG ( test) Ql (U)on 14-71-1572Ssvfbdbezddqov and review of laboratory resultsAbnormal [facility] HealthcarePreg Test, UrPositiveNegativeNOMosaic Life Care at St. JosephNOIL Healthcare Urinalysis macro (dipstick) panel (U)on 53-16-3603Nbvctzkes, UANegativeNegative - 4(70) +++ mg/dLNOMS HealthcareBlood, UANegativeNegative - 50 Byron/mcLNOMS HealthcareClarity, UAClearNOMS HealthcareColor, UAYellowNOMS HealthcareGlucose, UANegativeNegative - 2000(110) ++++ mg/dLNOIL HealthcareInterpretation and review of laboratory resultsNormalNOIL HealthcareKetones, UANegativeNegative - 160(16) ++++ mg/dLNOIL HealthcareLeukocytes, UANegativeNegative - 500+++ Robby/mcL [facility] HealthcareNitrite, UANegativeNegative - PositiveNOMS HealthcarepH, UA6.55 - 9NOMS HealthcareProtein, UANegativeNegative - 2000(20) ++++ mg/dLNOMS Healthcare Spec Grav, UA1.011 - 1.03NOMS HealthcareUrobilinogen, UA0.20.2 - 12 mg/dLNOMS HealthcareNOMS HealthcareUS Pelvis transvaginalon 28-57-4074Kxlrokli consistent with a live intrauterine gestation, current sonographic age of 8 weeks and 5 day s resulting in an estimated date of delivery of November 27, 2025 TRANSCRIBED BY: ELECTRONICALLY SIGNED BY: Antony Ferrara MDIMAGING FINDINGS: A single intrauterine gestational sac is [...] present. Cervix is closed, 4 cm length IMAGINGSpirnaAntony polk MD - 04/25/2025 FINDINGS: A single intrauterine [...] BY: ELECTRONICALLY SIGNED BY: Antony Ferrara MD [facility] Pelvis transvaginalOrdered By: Antony Ferrara on 04-25-[address] [facility] Work Phone: us OB TRANSVAGINALon 37-76-9340QU OB TRANSVAGINAL FINDINGS: A single intrauterine gestational sac is [...] TRANSCRIBED BY: ELECTRONICALLY SIGNED BY: Antony Ferrara MDNoecu health duplin hospitalNot AvailableComment on above:Order Comment: US OB TRANSVAGINAL No LMP recorded.US Pelvis transvaginalon 31-39-4446Tcolswhmw Study observation (narrative)[facility] WITH AUTO DIFFERENTIALon 93-70-9320JBAAYYQBS ABSOLUTE COUNT (10*3/UL) BY AUTOMATED COUNT0.1 10*3/uLNormal0.0-0.2Pro[facility]ultman HospitalComment on above:Performed By: #### CBCA #### [facility] ([facility]) [address] [place] [address] VIRBASOPHILS RELATIVE PERCENT BY AUTOMATED COUNT0.7 %Normal [facility] HospitalComment on above:Performed By: #### CBCA #### [facility] ([facility]) [address] [place] [address] VIRCELLAVISION DIFFERENTIAL TYPEAUTOMATED DIFFERENTIALNormal [facility]MMemorial Health System HospitalComment on above:Performed By: #### CBCA #### [facility] ([facility]) [address] [place] [address] VIREosinophils (Bld) [#/Vol]0.1 10*3/uLNormal0.0-0.4[facility] [place] HospitalComment on above:Performed By: #### CBCA #### [facility] ([facility]) [address] [place] [address] VIREOSINOPHILS RELATIVE PERCENT BY AUTOMATED COUNT1.1 %Normal [facility] HospitalComment on above:Performed By: #### CBCA #### [facility] ([facility]) [address] [place] [address] VIRErythrocyte distribution width (RBC) [Ratio]13.9 %Normal 11.5-15[facility] [place] HospitalComment on above:Performed By: #### CBCA #### [facility] ([facility]) [address] [place] [address] VIRHematocrit (Bld) [Volume fraction]35.5 %Qbamxe91-43FyuPlolus [place] HospitalComment on above:Performed By: #### CBCA #### [facility] ([facility]) [address] [place] [address] VIRHemoglobin (Bld) [Mass/Vol]12.0 g/iXPzfnpa52.7-15.5[facility] [place] HospitalComment on above:Performed By: #### CBCA #### [facility] ([facility]) [address] [place] [address] VIRLYMPHOCYTES ABSOLUTE COUNT (10*3/UL) BY AUTOMATED COUNT2.3 10*3/uLNormal1.0-3.5[facility] [place] HospitalComment on above:Performed By: #### CBCA #### [facility] ([facility]) [address] [place] [address] VIRLYMPHOCYTES RELATIVE PERCENT BY AUTOMATED COUNT29.4 %Normal [facility] [place] HospitalComment on above:Performed By: #### CBCA #### [facility] ([facility]) [address] [place] [address] VIRMCH (RBC) [Entitic mass]29.3 vvRcwwob36-54DmfPwlovs [place] HospitalComment on above:Performed By: #### CBCA #### [facility] ([facility]) [address] [place] [address] VIRMCHC (RBC) [Mass/Vol]33.8 g/tZXufnfl45-11FdzUbhiee [place] HospitalComment on above:Performed By: #### CBCA #### [facility] ([facility]) [address] [place] [address] VIRMCV (RBC) [Entitic vol]87 cRKtnraz47-537ZfoTknxhc [place] HospitalComment on above:Performed By: #### CBCA #### [facility] ([facility]) [address] [place] [address] VIRMONOCYTES ABSOLUTE COUNT (10*3/UL) BY AUTOMATED COUNT0.6 10*3/uLNormal0.0-0.9[facility] [place] HospitalComment on above:Performed By: #### CBCA #### [facility] ([facility]) [address] [place] [address] VIRMONOCYTES RELATIVE PERCENT BY AUTOMATED COUNT8.2 %Normal [facility] [place] HospitalComment on above:Performed By: #### CBCA #### [facility] ([facility]) [address] [place] [address] VIRNEUTROPHILS ABSOLUTE COUNT BY AUTOMATED COUNT4.7 10*3/uL Normal1.5-6.6[facility] HospitalComment on above:Performed By: #### CBCA #### [facility] ([facility]) [address] [place] [address] VIRNEUTROPHILS RELATIVE PERCENT BY AUTOMATED COUNT60.6 %Normal [facility] HospitalComment on above:Performed By: #### CBCA #### [facility] ([facility]) [address] [place] [address] VIRPlatelet mean volume (Bld) [Entitic vol]8.1 fLNormal7-12 [facility]MM[facility] HospitalComment on above:Performed By: #### CBCA #### [facility] ([facility]) [address] [place] [address] VIRPlatelets (Bld) [#/Vol]305 10*3/wZAcslug937-967PilZlfncc [place] HospitalComment on above:Performed By: #### CBCA #### [facility] ([facility]) [address] [place] [address] VIRRBC COUNT4.08 X10E12/LNormal3.8-5.2POhioHealth [facility] Comment on above:Performed By: #### CBCA #### [facility] ([facility]) [address] [place] [address] VIRWBC (Bld) [#/Vol]7.8 10*3/uLNormal4-11ProBar[facility] HospitalComment on above:Performed By: #### CBCA #### [facility] ([facility]) [address] [place] [address] VIRCOMPREHENSIVE METABOLIC PANELon 18-98-8533Iisrarj [Mass/Vol] 4.2 g/dLNormal3.2-5.3POhioHealth Mansfield Hospital HospitalComment on above:Performed By: #### CMP #### [facility] ([facility]) [address] [place] [address] VIRALP [Catalytic activity/Vol]71 U/HFutasd85-687OtaKcbrhy [place] HospitalComment on above:Performed By: #### CMP #### [facility] ([facility]) [address] [place] [address] VIRALT [Catalytic activity/Vol]19 U/LNormal<=31[facility] [place] HospitalComment on above:Performed By: #### CMP #### [facility] ([facility]) [address] [place] [address] VIRAnion gap [Moles/Vol]6 mmol/LNormal5-15[facility] [place] HospitalComment on above:Performed By: #### CMP #### [facility] ([facility]) [address] [place] [address] VIRAST [Catalytic activity/Vol]23 U/LNormal<=41[facility] [place] HospitalComment on above:Performed By: #### CMP #### [facility] ([facility]) [address] [place] [address] VIRBilirubin [Mass/Vol]0.3 mg/dLNormal0.3-1.2[facility] [place] HospitalComment on above:Performed By: #### CMP #### [facility] ([facility]) [address] [place] [address] VIRCalcium [Mass/Vol]8.9 mg/dLNormal8.5-10.5[facility] [place] HospitalComment on above:Performed By: #### CMP #### [facility] ([facility]) [address] [place] [address] VIRChloride [Moles/Vol]107 mmol/YYxcivz30-066RnaRaytsu [place] HospitalComment on above:Performed By: #### CMP #### [facility] ([facility]) [address] [place] [address] VIRCO2 [Moles/Vol]26 mmol/TFgrsdh65-10AxbVbtdgm [facility] Comment on above:Performed By: #### CMP #### [facility] ([facility]) [address] [place] [address] VIRCreatinine [Mass/Vol]0.39 mg/dLLow0.40-1.00ProParkview Health Bryan HospitalComment on above:Result Comment: METHOD TRACEABLE TO IDMS STANDARD Performed By: #### CMP #### [facility] ([facility]) [address] [place] [address] VIREGFR (CKD-EPI) NON-RACE DEPENDENT>^90Normal>=60ProParkview Health Bryan HospitalComment on above:Result Comment: Reported eGFR is based on the CKD-EPI 2020 equation that does not use a race coefficient.Performed By: #### CMP #### [facility] ([facility]) [address] [place] [address] VIRGlucose [Mass/Vol]95 mg/iUFyrhsg61-17SgsMutnak [place] HospitalComment on above:Performed By: #### CMP #### [facility] ([facility]) [address] [place] [address] VIRPotassium [Moles/Vol]3.7 mmol/LNormal3.5-5.0ProParkview Health Bryan HospitalComment on above:Performed By: #### CMP #### [facility] ([facility]) [address] [place] [address] VIRProtein [Mass/Vol]6.9 g/dLNormal6.0-8.0Pro[facility] HospitalComment on above:Performed By: #### CMP #### [facility] ([facility]) [address] [place] [address] VIRSodium [Moles/Vol]139 mmol/JMpvvnc349-870XceBbuhkf [place] HospitalComment on above:Performed By: #### CMP #### [facility] ([facility]) [address] [place] [address] VIRUrea nitrogen [Mass/Vol]8 mg/dLNormal5-23ProGrand Lake Joint Township District Memorial Hospitalca [place] HospitalComment on above:Performed By: #### CMP #### [facility] ([facility]) [address] [place] [address] VIRLIPASEon 43-49-1808Twhmge [Catalytic activity/Vol]16 U/L Wvkboz02-38XihYbihwu [place] HospitalComment on above:Performed By: #### LIPA #### [facility] ([facility]) [address] [place] [address] VIRMAGNESIUMon 97-20-4237Osdfogzxa [Mass/Vol]1.9 mg/dLNormal 1.8-2.6Pro[facility] HospitalComment on above:Performed By: #### MG #### [facility] ([facility]) [address] [place] [address] VIRPOCT NURSING URINE MACROSCOPIC UAon 28-45-0356IPTXVTGSN VICKI NegativeNormalNegativeCleveland Clinic [facility]view [facility] HospitalComment on above:Performed By: #### NUM #### [facility] ([facility]) [address] [place] [address] VIRBLOOD/HGB NURSmallAbnormalNegativeKnox Community Hospital Comment on above:Performed By: #### NUM #### [facility] ([facility]) [address] [place] [address] VIRGLUCOSE NURNegativeNormalNegativeKnox Community Hospital Comment on above:Performed By: #### NUM #### [facility] ([facility]) [address] [place] [address] VIRKETONES NURNegativeNormalNegativeKnox Community Hospital Comment on above:Performed By: #### NUM #### [facility] ([facility]) [address] [place] [address] VIRLEUKOCYTE ESTERASE NURTraceAbnormalNegativeKnox Community HospitalComment on above:Performed By: #### NUM #### [facility] ([facility]) [address] [place] [address] VIRNITRITE NURNegativeNormalNegativeKnox Community Hospital Comment on above:Performed By: #### NUM #### [facility] ([facility]) [address] [place] [address] VIRPH NUR7.0Nuwyet0.0, 6.0, 6.5, 7.0, 7.5, 8.0, 8.5, 5.5 ProMOhio State East HospitalComment on above:Performed By: #### NUM #### [facility] ([facility]) [address] [place] [address] VIRPROTEIN NURTraceAbnormalNegativeKnox Community Hospital Comment on above:Performed By: #### NUM #### [facility] ([facility]) [address] [place] [address] VIRSPECIFIC GRAVITY NUR1.542Mazmpf7.010, 1.015, 1.020, 1.025 [facility] HospitalComment on above:Performed By: #### NUM #### [facility] ([facility]) [address] [place] [address] VIRUROBILINOGEN NUR0.2 E.U./dLNormalKnox Community Hospital Comment on above:Performed By: #### NUM #### [facility] ([facility]) [address] [place] [address] VIRPOCT , URINE (NUCG)on 90-25-1585Zyso HCG ( test) Ql (U)NegativeNormalNegative, IndeterminateKnox Community Hospital Comment on above:Performed By: #### NUCG #### [facility] ([facility]) [address] [place] [address] VIRTROP I, HIGH SENSITIVITY 1 HOURon 66-68-5454QHMOLKJG I, HIGH SENSITIVITY<^2Normal<16[facility] [place] HospitalComment on above:Performed By: #### TNIHS1 #### [facility] ([facility]) [address] [facility] [place] [address] VIRTROPONIN I, HIGH SENSITIVITY 0 HOURon 80-16-8923MZZSIYJL I, HIGH SENSITIVITY<^2Normal<16[facility] [place] HospitalComment on above:Performed By: #### TNIHS0 #### [facility] ([facility]) [address] [place] [place] [address] VIRXR CHEST 1 VWon [id number] CHEST 1 VWXR CHEST 1 VW XR CHEST 1 VW HISTORY: Chest pain COMPARISON: Radiograph 03/14/2024 FINDINGS: AP upright film obtained. The cardiomediastinal silhouette is within normal limits. No significant pleural effusion. No focal consolidation. No measurable pneumothorax. IMPRESSION: No evidence of acute cardiopulmonary process. Approved by Caitie Sinclair DO on 03/05/2025 12:10 PM I, Jaison Gill MD have personally reviewed the image(s) and agree with and/or edited the report Finalized by Jaison Gill MD on 03/05/2025 12:16 PMNormalProMedica Pantoja HospitalUS PELVIC WITH TRANSVAGINAL AND DUPLEXon 65-12-5445CU PELVIC WITH TRANSVAGINAL AND DUPLEXUS PELVIC WITH TRANSVAGINAL AND DUPLEX CLINICAL INFORMATION: Female infertility. TECHNIQUE: Real-time transabdominal and transvaginal sonographic evaluation of the pelvis was performed with olivares scale and color flow imaging. Transabdominal imaging performed to evaluate for extra adnexal pelvic pathology. Transvaginal imaging performed for better delineation of the adnexal and endometrial contents. Real time olivares scale, color flow imaging and duplex spectral Doppler waveform analysis evaluation was performed of the major arterial inflow and venous outflow structures of the ovaries with arterialand venous spectral waveforms obtained and reviewed in view of the clinical history of Female infertility . Duplex spectral Doppler document arterial and venous spectral waveforms documented within the majorarterial inflow and venous outflow of both ovaries. Arterial and venous Doppler duplex spectral waveforms were evaluated. COMPARISON: No relevant prior studies available. FINDINGS: Unremarkable uterus measures 8.8 x 3.9 x 6.5 cm. Homogeneously echogenic endometrium is 7.5 mm in thickness with no internal color flow vascularity. Unremarkable ovaries. Right ovary is 3.5 x 2.4 x 2.7 cm. Left ovary is 4.4 x 2.8 x 3.3 cm. Small amount of cul-de-sac fluid. The arterial and venous waveforms in both ovaries are within normal limits. IMPRESSION: * Sonographically unremarkable uterus and ovaries. Finalized by Eusebio Hutchins MD on 01/20/2025 11:14 AMNormalMagruder Memorial Hospital (NO DIFF)on 66-54-1097Ovspqhytoye distribution width (RBC) [Ratio] 14.8 %Ubdizg34.5-15Bar[facility]ton Citizens HospitalComment on above:Performed By: #### BLANCA, 63899-1, PINR, 52776-2, CMP, 32387-8, 23009-3, 86221-1 #### [facility] ([id number]) [address] [place] [address] 77293Ybxgiguyww (Bld) [Volume fraction]33.6 %Spt64-42WsfAnpzduBarberton Citizens HospitalComment on above:Performed By: #### BLANCA, 35308-0, PINR, 18559- 9, CMP, 48819-9, 27891-5, 81634-4 #### [facility] ([id number]) [address] [place] [address] 26819Kksxrdegui (Bld) [Mass/Vol]11.4 g/dLLow11.7-15.5PMartins Ferry HospitalComment on above:Performed By: #### CBCMonisha, 34033-5, PINR, 13012- 9, CMP, 27839-4, 86876-1, 03321-9 #### [facility] ([id number]) [address] [place] [address] 96072ABJ (RBC) [Entitic mass]29.7 zvAuhvvy48-82KprYdqxelWise Health Surgical Hospital At ParkwayComment on above:Performed By: #### CBCA, 96149-2, PINR, 43731-4, CMP, 88601-0, 75839-0, 45966-0 #### [facility] ([id number]) [address] [place] [address] 81294RAEE (RBC) [Mass/Vol]33.9 g/iMKcqabe10-81OlpDdkxdyWise Health Surgical Hospital At ParkwayComment on above:Performed By: #### CBCA, 19093-0, PINR, 40132-6, CMP, 13942-5, 96958-2, 51434-7 #### [facility] ([id number]) [address] [place] [address] 07720VFW (RBC) [Entitic vol]88 vUJwrctw71-327BuoHlkjar [place] HospitalComment on above:Performed By: #### CBCA, 03093-4, PINR, 21654-2, CMP, 10003-7, 28091-9, 22358-8 #### [facility] ([id number]) [address] [place] [address] 26414Nmzsihvu mean volume (Bld) [Entitic vol]8.9 fLNormal7-12 ProMCentury City HospitalComment on above:Performed By: #### CBCA, 59568-1, PINR, 88785-8, CMP, 44664-7, 17767-6, 31033-1 #### [facility] ([id number]) [address] [place] [address] 27014Sodmalimx (Bld) [#/Vol]296 10*3/yNTideyu287-647CyyJeatkb [place] HospitalComment on above:Performed By: #### CBCA, 93236-7, PINR, 72615- 9, CMP, 69568-7, 09154-4, 86809-9 #### [facility] ([id number]) [address] [place] [address] 24385SBH COUNT3.82 X10E12/LNormal3.8-5.2[facility] Comment on above:Performed By: #### BLANCA, 61016-9, PINR, 17612-8, CMP, 51241-5, 20180-9, #### [facility] ([id number]) [address] [place] [address] 07819KQV (Bld) [#/Vol]6.0 10*3/uLNormal4-11Bar[facility] HospitalComment on above:Performed By: #### BLANCA, 24420-0, PINR, 06924-5, CMP, 28137-8, 11471-5, #### [facility] ([id number]) [address] [place] [address] 19260OTBPCZTS STIMULATING HORMONEon 29-94-0788DEPIEYVW STIM HORMONE 6.7 mIU/mLNormalBarberton Citizens HospitalComment on above:Order Comment: NORMAL FEMALE:Luteal 1.8-5.1 mIU/mLFollicular 3.8-8.8 mIU/mLMid Cycle 4.5-22.5 mIU/mL [place] 16.7-113.6 mIU/mLPerformed By: #### HILDAA, 43166-4, PINR, 82038-8, CMP, 79804-7, 00782-7, #### [facility] ([id number]) [address] [place] [address] 53493CRK-MCPP, SERUMon 22-08-3346FNTBM B HCG,3RD I.S.<^5 NormalBarberton Citizens HospitalComment on above:Order Comment: WEEKS (SINCE LMP) MIU/mL3 WEEKS 5 - 504 WEEKS 5 - 4265 WEEKS 18 - 7,3406 WEEKS 1,080- 56,5007-8 WEEKS 7,650 - 229,0009-12 WEEKS 25,700 - 288,29437-78 WEEKS 13,300 - 254,46494-25 WEEKS4,060 - 165,70010-03 WEEKS 3,640 - 117,000MALES AND NON- FEMALES - <5 MIU/mLThis test has been FDA approved for use inpregnancy only. Elevated levels are notnecessarily diagnostic for trophoblasticor nontrophoblastic neoplasms. Performed By: #### BLANCA, 34346-8, PINR, 88344-3, CMP, 86660-4, 75601-1, #### [facility] ([id number]) [address] [place] [address] 20276TYGKZIOUCQW HORMONEon 63-85-9590AZYZIZVUQDW HORMONE6.3 mIU/mL NormalProMedica Hemet Global Medical CenterComment on above:Order Comment: NORMAL FEMALEFollicular 2.1-10.9 mIU/mLMid Cycle 19.2-103 mIU/mLLuteal 1.2-12.9 mIU/m LPost [place] 10.9-58.6 mIU/mL Performed By: #### HILDAA, 91135-4, PINR, 75822-6, CMP, 52546-3, 63331-9, #### [facility] ([id number]) [address] [place] [address] 21104XMZXCMOBDrt 16-42-9832JGEKAHSVI98.5 ng/mLNormal3.3-26.7 [facility] Medical CenterComment on above:Performed By: #### HILDAA, 99554-2, PINR, 72626-2, CMP, 51804-5, 16014-6, #### [facility] ([id number]) [address] [place] [address] 01851Z6, FREEon 15-39-9209Hrmw T4 [Mass/Vol]0.63 ng/dLNormal 0.61-1.60ProWise Health Surgical Hospital At ParkwayComment on above:Performed By: #### CBCA, 30212-4, PINR, 25866-7, CMP, 56529-8, 24675-3, 30580-4 #### [facility] ([id number]) [address] [place] [address] 35447KCFek 47-94-4686SYY8.63 uIU/mLHigh0.49-4.67ProW[facility] Health Surgical Hospital At ParkwayComment on above:Performed By: #### CBCA, 57829-8, PINR, 76306-2, CMP, 05459-9, 44481-8, #### [facility] ([id number]) [address] [place] [address] 06305PTF.beta subunit IA 3rd IS Qnon 52-32-8947VRFAE B HCG,3RD I.S. <5NormalProWise Health Surgical Hospital At ParkwayComment on above:Result Comment: NEW REFERENCE RANGE WEEKS (SINCE LMP) [...] trophoblastic or nontrophoblastic neoplasms. Performed By: #### CBCA, 25331-0, PINR, 60069-8, CMP, 25212-0, 23003-0, 90874-5 #### [facility] ([id number]) [address] [place] [address] 66243WXI AND AUTO DIFFon 49-83-7262ZDMNKFPN BASOPHIL0.1 X10E9/L Normal0.0-0.2PMartins Ferry HospitalComment on above:Performed By: #### CBCA, 30841-0, PINR, 53665-6, CMP, 50691-2, 17073-0, 31667-7 #### [facility] ([id number]) [address] [place] [address] 92460ZTYDFOFX NEUTROPHIL3.5 X10E9/LNormal1.5-6.6ProWise Health Surgical Hospital At ParkwayComment on above:Performed By: #### CBCA, 80950-1, PINR, 55918-2, CMP, 92256-0, 64781-0, 43995-5 #### [facility] ([id number]) [address] [place] [address] 53363Ttjtasjkz/100 WBC (Bld)0.8 %NormalBarberton Citizens Hospital Comment on above:Performed By: #### CBCA, 33383-7, PINR, 20316-5, CMP, 99488-8, 80114-6, 04591-3 #### [facility] ([id number]) [address] [place] [address] 95511Zhpmseahydy (Bld) [#/Vol]0.1 10*3/uLNormal0.0-0.4ProWise Health Surgical Hospital At ParkwayComment on above:Performed By: #### CBCA, 13565-1, PINR, 71657- 9, CMP, 39011-3, 53209-6, 71151-4 #### [facility] ([id number]) [address] [place] [address] 93008Uvkkszvbkds/100 WBC (Bld)1.7 %NormalProDecatur Morgan Hospitalmont Hospital Comment on above:Performed By: #### CBCA, 13539-5, PINR, 38772-3, CMP, 81948-8, 82952-9, 23378-1 #### [facility] ([id number]) [address] [place] [address] 34128Zfzgncpvddh distribution width (RBC) [Ratio]14.4 %Normal 11.5-15.0ProWise Health Surgical Hospital At ParkwayComment on above:Performed By: #### CBCA, 48443-2, PINR, 43556-8, CMP, 14950-7, 50298-7, 84306-7 #### [facility] ([id number]) [address] [place] [address] 22337Wtbhjfwogp (Bld) [Volume fraction]35.7 %Itqejx57-03XzeHlevlkWise Health Surgical Hospital At ParkwayComment on above:Performed By: #### CBCA, 31913-4, PINR, 95323- 9, CMP, 25544-1, 39115-6, 81779-4 #### [facility] ([id number]) [address] [place] [address] 23286Tictqsoiba (Bld) [Mass/Vol]11.9 g/jPSyvfbi59.7-15.5PMartins Ferry HospitalComment on above:Performed By: #### CBCA, 35282-4, PINR, 42018- 9, CMP, 55604-2, 82806-6, 00403-9 #### [facility] ([id number]) [address] [place] [address] 72170Fpisyvnbeqi (Bld) [#/Vol]3.2 10*3/uLNormal1.0-3.5PMartins Ferry HospitalComment on above:Performed By: #### CBCA, 00743-5, PINR, 49749- 9, CMP, 72484-5, 16475-4, 98136-4 #### [facility] ([id number]) [address] [place] [address] 00561Tnmqfujfdoh/100 WBC (Bld)43.6 %NormalBarberton Citizens Hospital Comment on above:Performed By: #### CBCA, 73047-1, PINR, 36943-2, CMP, 99548-6, 57019-4, 79653-3 #### [facility] ([id number]) [address] [place] [address] 11413YZY (RBC) [Entitic mass]28.7 vhJkneuy10-74UcuUjxbnsWise Health Surgical Hospital At ParkwayComment on above:Performed By: #### CBCA, 10338-9, PINR, 02105-8, CMP, 85734-7, 89326-5, 94797-9 #### [facility] ([id number]) [address] [place] [address] 28684ICNL (RBC) [Mass/Vol]33.5 g/pWJxlkit38-05LxeLxlbozWise Health Surgical Hospital At ParkwayComment on above:Performed By: #### CBCA, 68965-1, PINR, 27996-0, CMP, 37828-4, 89244-3, 39758-5 #### [facility] ([id number]) [address] [place] [address] 73325ZQR (RBC) [Entitic vol]86 fGHdgnuo81-646LfmKlsbme [facility] HospitalComment on above:Performed By: #### CBCA, 37609-9, PINR, 87692-5, CMP, 75029-5, 75975-8, 16432-0 #### [facility] ([id number]) [address] [place] [address] 48074Irllfwczp (Bld) [#/Vol]0.4 10*3/uLNormal0-0.9Bar[facility] Citizens HospitalComment on above:Performed By: #### CBCA, 50505-4, PINR, 59497-9, CMP, 98253-9, 51004-4, 81286-3 #### [facility] ([id number]) [address] [place] [address] 69425Ebedbhiyj/100 WBC (Bld)6.2 %[facility] Comment on above:Performed By: #### CBCA, 13208-2, PINR, 84580-5, CMP, 94987-6, 23404-2, 55248-2 #### [facility] ([id number]) [address] [place] [address] 55878Cgebebltmew/100 WBC (Bld)47.7 %[facility] Comment on above:Performed By: #### CBCA, 29659-4, PINR, 56439-5, CMP, 49804-6, 09666-0, 31378-8 #### [facility] ([id number]) [address] [place] [address] 49138Uphdelsu mean volume (Bld) [Entitic vol]8.5 fLNormal7-12 [facility] HospitalComment on above:Performed By: #### CBCA, 05994-5, PINR, 92653-1, CMP, 99731-1, 13978-0, 60364-9 #### [facility] ([id number]) [address] [place] [address] 49625Ylfyzoius (Bld) [#/Vol]325 10*3/sYBphiwv999-477GcgEochetBarberton Citizens HospitalComment on above:Performed By: #### CBCA, 86423-7, PINR, 97456- 9, CMP, 08114-1, 92711-1, 05630-0 #### [facility] ([id number]) [address] [place] [address] 61733FEO COUNT4.16 X10E12/LNormal3.80-5.20[facility] Comment on above:Performed By: #### CBCA, 15391-8, PINR, 96995-0, CMP, 14372-2, 76119-6, 97940-6 #### [facility] ([id number]) [address] [place] [address] 55353CPM (Bld) [#/Vol]7.3 10*3/uLNormal4.0-11.0Bar[facility] Citizens HospitalComment on above:Performed By: #### CBCA, 74520-3, PINR, 15230-2, CMP, 36412-5, 96779-1, 02066-8 #### [facility] ([id number]) [address] [place] [address] 49779YLQQBAIQMWVUX METABOLIC PANELon 84-13-7945Ampogau [Mass/Vol]4.0 g/dLNormal3.2-5.3PMartins Ferry HospitalComment on above:Performed By: #### CBCA, 09749-2, PINR, 19681-5, CMP, 03732-4, 21607-9, 92823-6 #### [facility] ([id number]) [address] [place] [address] 75957XLO [Catalytic activity/Vol]76 U/VHptiki25-159AlnQijqacWise Health Surgical Hospital At ParkwayComment on above:Performed By: #### CBCA, 41325-8, PINR, 83827-9, CMP, 48488-0, 87586-6, 51754-1 #### [facility] ([id number]) [address] [place] [address] 94015MZU [Catalytic activity/Vol]25 U/LNormal0-31PMartins Ferry HospitalComment on above:Performed By: #### CBCA, 60615-5, PINR, 32385-6, CMP, 32914-2, 48963-7, 42589-7 #### [facility] ([id number]) [address] [place] [address] [place] [address]Wpitz gap [Moles/Vol]7 mmol/LNormal5-15ProW[facility] Health Surgical Hospital At ParkwayComment on above:Performed By: #### CBCA, 16346-7, PINR, 32941-4, CMP, 75901-0, 18609-6, 51020-5 #### [facility] ([id number]) [address] [place] [address] 89027QZO [Catalytic activity/Vol]29 U/LNormal0-41ProW[facility] Health Surgical Hospital At ParkwayComment on above:Performed By: #### BLANCA, 03352-8, PINR, 82774-1, CMP, 89753-8, 51508-0, 69552-0 #### [facility] ([id number]) [address] [place] [address] 38733Puomagpeg [Mass/Vol]0.3 mg/dLNormal0.3-1.2PMartins Ferry HospitalComment on above:Performed By: #### BLANCA, 77193-0, PINR, 23440-3, CMP, 02792-7, 13989-9, 59638-3 #### [facility] ([id number]) [address] [place] [address] 46656Rsfaxcf [Mass/Vol]8.8 mg/dLNormal8.5-10.5PMartins Ferry HospitalComment on above:Performed By: #### CBCA, 54656-1, PINR, 46652-6, CMP, 10055-2, 67241-4, 97012-2 #### [facility] ([id number]) [address] [place] [address], [place] [address]Vtcsfbca [Moles/Vol]106 mmol/VSnpajx97-595RlbWvjqvzWise Health Surgical Hospital At ParkwayComment on above:Performed By: #### CBCA, 38456-6, PINR, 93854-7, CMP, 72056-8, 33419-9, 47946-6 #### [facility] ([id number]) [address] [place] [address] 81092ZA7 [Moles/Vol]25 mmol/LIopwzq20-96EycShdxvaMartins Ferry Hospital Comment on above:Performed By: #### BLANCA, 74989-6, PINR, 71940-7, CMP, 45973-3, 80550-1, 94272-5 #### [facility] ([id number]) [address] [place] [address], [place] 77[address]Vefmswwqyy [Mass/Vol]0.55 mg/dLNormal0.40-1.00Bar[facility] HospitalComment on above:Result Comment: METHOD TRACEABLE TO IDMS STANDARD Performed By: #### BLANCA, 86405-8, PINR, 46510-0, CMP, 55191-8, 73284-0, #### [facility] ([id number]) [address] [place] [address] 23792hNXX (CKD-EPI) NON-RACE DEPENDENT>90Normal>59ProW[facility] Health Surgical Hospital At ParkwayComment on above:Result Comment: Reported eGFR is based on the CKD-EPI 2020 equation that does not use a race coefficient.Performed By: #### BLANCA, 99557-0, PINR, 62445-8, CMP, 35663-1, 67311-6, 74148-0 #### [facility] ([id number]) [address] [place] [address] 28924Jnkqilv [Mass/Vol]97 mg/lRNeokov08-27YlmVjsrvxBarberton Citizens Hospital Comment on above:Performed By: #### BLANCA, 85804-7, PINR, 49229-1, CMP, 11748-3, 44381-8, #### [facility] ([id number]) [address] [place] [address] 41832Hxszygbrj [Moles/Vol]3.9 mmol/LNormal3.5-5.0Bar[facility] HospitalComment on above:Performed By: #### CBCA, 49747-3, PINR, 70902-4, CMP, 37939-1, 95432-1, 29582-5 #### [facility] ([id number]) [address] [place] [address] 72245Ieyepmi [Mass/Vol]7.2 g/dLNormal6.0-8.0ProW[facility] Health Surgical Hospital At ParkwayComment on above:Performed By: #### CBCA, 92819-3, PINR, 99112-7, CMP, 50175-6, 37630-8, 11287-2 #### [facility] ([id number]) [address] [place] [address] 94525Izdttp [Moles/Vol]138 mmol/OTgjvfy761-449WcpJelvfx [facility] HospitalComment on above:Performed By: #### CBCA, 56101-2, PINR, 93723-5, CMP, 25140-9, 74757-6, 77618-3 #### [facility] ([id number]) [address] [place] [address] 89352Fzbs nitrogen [Mass/Vol]10 mg/dLNormal-ProW[facility] Health Surgical Hospital At ParkwayComment on above:Performed By: #### CBCA, 68149-8, PINR, 82582-2, CMP, 82853-5, 94147-2, 21600-9 #### [facility] ([id number]) [address] [place] [address] 85055CTD ( test) Ql (U)on 17-74-7418Vjwp HCG ( test) Ql (U)NegativeNormalNEGProWise Health Surgical Hospital At ParkwayComment on above: Performed By: #### CBCA, 49920-3, PINR, 90089-0, CMP, 11270-7, 51437-5, 98265-4 #### [facility] ([id number]) [address] [place] [address] 37903GDMUTSdv 80-79-8884Zmnwrh [Catalytic activity/Vol]36 U/LNormal 17-40ProW[facility] Health Surgical Hospital At ParkwayComment on above:Performed By: #### CBCA, 54019- 5, PINR, 53456-6, CMP, 24069-2, 63628-3, 11501-9 #### [facility] ([id number]) [address] [place] [address] 69681LYS MACROSCOPIC NURon 64-10-2519UOXCUXUBU NURNegativeNormalNEG [facility] CenterComment on above:Performed By: #### CBCA, 92434-0, PINR, 58375-5, CMP, 21745-0, 67417-2, 04335-0 #### [facility] ([id number]) [address] [place] [address] 07196AFBVX/HGB NURNegativeNormalNEGBarberton Citizens HospitalComment on above:Performed By: #### CBCA, 65041-6, PINR, 49230-3, CMP, 22315-1, 65836-5, 52236-4 #### [facility] ([id number]) [address] [place] [address] 67477RXSOPAK NURNegativeNormalNEGBarberton Citizens HospitalComment on above:Performed By: #### CBCA, 20773-1, PINR, 83439-3, CMP, 67221-7, 50976-9, 73970-7 #### [facility] ([id number]) [address] [place] [address] 45365BIJOZSS NURNegativeNormalNEGProWise Health Surgical Hospital At ParkwayComment on above:Performed By: #### CBCA, 23606-3, PINR, 19774-3, CMP, 96836-2, 05727-1, 09244-8 #### [facility] ([id number]) [address] [place], [place] [address]RQVTWAQGG ESTERASE NURNegativeNormalNEGProWise Health Surgical Hospital At ParkwayComment on above:Performed By: #### BLANCA, 48990-5, PINR, 44885-2, CMP, 91208-1, 10627-5, 58804-8 #### [facility] ([id number]) [address] [place] [address] 03942MXKKNNS NURNegativeNormalNEGProWise Health Surgical Hospital At ParkwayComment on above:Performed By: #### BLANCA, 15126-0, PINR, 22065-7, CMP, 81867-0, 26135-0, 38633-9 #### [facility] ([id number]) [address] [place] [address] 51315DJ NUR5.7Fvmjqv9.0-8.5Pro[facility] Medical CenterComment on above:Performed By: #### BLANCA, 61758-8, PINR, 36311-0, CMP, 29986-1, 01898-2, 68387-2 #### [facility] ([id number]) [address] [place] [address] 06700ZVJGULR NURTraceAbnormalNEGBarberton Citizens HospitalComment on above:Performed By: #### BLANCA, 42195-5, PINR, 35386-3, CMP, 79199-2, 28183-0, 09421-4 #### [facility] ([id number]) [address] [place] [address] 37010IDYXAWFQ GRAVITY VICKI>=1.093Qszmym3.003-1.035ProW[facility] Health Surgical Hospital At ParkwayComment on above:Performed By: #### BLANCA, 42785-9, PINR, 41239-3, CMP, 97600-1, 57870-4, 99587-6 #### [facility] ([id number]) [address] [place] [address] 49101PHYQRAFSMQVC NUR0.2 eu/dLNormal<1.1[facility] Comment on above:Performed By: #### CBCA, 02675-8, PINR, 56544-6, CMP, 27252-2, 23564-8, 60930-9 #### [facility] ([id number]) [address] [facility] [address] FLOOR [place], [place] [address]HNP ( test) Ql (U)on 37-28-1559Ikai HCG ( test) Ql (U)NegativeNormalNEGProGrand Lake Joint Township District Memorial Hospitalca [facility] CenterComment on above: Performed By: #### 2106-3 #### [facility] ([id number]) [address] [place], [place] [address]Sgwuubhj Pathologyon 54-06-4639Ogdjbtrr PathologyNormalProKettering Health Main CampusComment on above:Result Comment: [facility] [address] [place] [address] Surgical Pathology Consultation Patient Name:PRISCILLA TAYLORDOB:2000 (Age: 23)Gender:FTaken:4Reported:4Physician(s):TOMI SERRANO ([id number])Copy To: Rec. #:[id number]: #[id number] Final Pathologic Diagnosis Gallbladder, cholecystectomy: Chronic cholecystitis and cholelithiasis. Report Electronically Signed Out cjb/4Cvimal Rendon MD Interpretation performed at [facility], [address] [place] [address], License number: [id number]. Clinical History Calculus of gallbladder without cholecystitis without obstruction K80.20. Gallbladder polyp K82.4. Gross Description Received in formalin labeled CLAUDIA, gallbladder is an intact gallbladder that measures, 7.4 x 2.9x 2.5 cm with a cystic duct of 0.2 cm. No lymph node is identified adjacent to the cystic duct. Theserosal surface is green-olivares with an area of green-olivares granular soft tissue consistent with hepatic bed. The gallbladder is opened and filled with green tenacious bile. Yellow granular calculi are identified within the lumen, 0.2-1.7 cm. The mucosa is green and velvety with yellow striations. Thegallbladder wall is 0.1-0.2 cm in thickness. Hand Silvering Supervisor cross-sections are submitted within a single cassette. (1, ss, [id number],m2) DM. dm/04/14/2024GR Specimen(s) Received Gallbladder Fee Codes(s): 1; 53651XV ABDOMEN LMTDon [id number] ABDOMEN LMTDUS ABDOMEN LMTD US ABDOMEN LMTD HISTORY: Generalized postprandial abdominal pain COMPARISON: None TECHNIQUE: Multiple real-time grayscale images were obtained in transverse and sagittal projectionsof the right upper quadrant. Color Doppler was used. FINDINGS: Visualized portions of liver are homogenous in echotexture without demonstrated focal lesion. No intrahepatic biliary dilatation. The common duct is not dilated and measures 0.3 cm. Echogenic focus with posterior acoustic shadowing and twinkling artifact in the gallbladder neck measuring 1.5 cm. Multiple echogenic, nonmobile bowel, non- shadowing foci projecting into the gallbladder lumen from the gallbladder wall measuring up to 2 mm. No gallbladder wall thickening or pericholecystic fluid demonstrated. Technologist reports negativesonographic Hankins's sign. The gallbladder wall measures 0.2 cm. Pancreas difficult to visualize secondary to overlying bowel gas. Provided images of the right kidney show no abnormalities. IMPRESSION: * Cholelithiasis without sonographic evidence of acute cholecystitis. If clinical concern for acutecholecystitis, consider HIDA scan. * Multiple tiny gallbladder polyps. Approved by Resident Rolanda Hopper DO on 03/24/2024 10:30 AM Johnny Tobar MD have personally reviewed the image(s) and agree with and/or edited the report Finalized by Johnny Alatorre MD on 03/24/2024 10:48 AMNormalProWise Health Surgical Hospital At ParkwayFREE T4on 93-74-5848Wqhm T4 [Mass/Vol]0.77 ng/dLNormal0.61-1.60ProW[facility] Health Surgical Hospital At ParkwayComment on above:Performed By: #### CBCA, 91455-0, PINR, 77141- 9, CMP, 45890-6, 50594-3, 16990-4 #### [facility] ([id number]) [address] [place] [address]MWI Qnon 99-61-1766LQZ0.04 uIU/mLHigh0.49-4.67[facility] CenterComment on above:Performed By: #### CBCA, 27881-6, PINR, 65455-1, CMP, 77970-7, 91650-2, 13489-8 #### [facility] ([id number]) [address] [place] [address] 24707NQYCTXR B12on 80-64-5434Doajuqbhn (Vitamin B12) [Mass/Vol]207 pg/cQApfmca823-365TjuRrukuu [facility] Medical CenterComment on above:Performed By: #### CBCA, 18341-1, PINR, 81906-2, CMP, 65330-4, 75561-1, 72934-9 #### [facility] ([id number]) [address] [place] [address] 86188PQ CTA CHESTon 98-50-0556QJ CTA CHESTCT CTA CHEST CTA CHEST HISTORY: Chest pain, [...] by Alan Dyer MD on 03/15/2024 12:01 AMNormalMagruder Memorial Hospital AND AUTO DIFFon 40-78-2680YGRIPLAL BASOPHIL0.0 X10E9/LNormal0.0-0.2 [facility] Citizens HospitalComment on above:Performed By: #### CBCA, 52286-4, PINR, 08989-7, CMP, 01943-7, 11947-8, 26667-0 #### [facility] ([id number]) [address] [place] [address] 10507KNLEWWAS NEUTROPHIL4.4 X10E9/LNormal1.5-6.6[facility] HospitalComment on above:Performed By: #### CBCA, 13970-6, PINR, 95673-2, CMP, 90429-6, 99295-1, 47018-2 #### [facility] ([id number]) [address] [place] [address] 12632Bkarrzfmg/100 WBC (Bld)0.5 %NormalBarberton Citizens Hospital Comment on above:Performed By: #### CBCA, 49617-1, PINR, 95033-2, CMP, 70195-1, 55147-5, 94974-2 #### [facility] ([id number]) [address] [place] [address] 49724Dfwlhfiawvu (Bld) [#/Vol]0.1 10*3/uLNormal0.0-0.4[facility] HospitalComment on above:Performed By: #### CBCA, 87453-5, PINR, 34461- 9, CMP, 08839-6, 58754-5, 88916-5 #### [facility] ([id number]) [address] [place] [address] 96685Bzklztjcvbf/100 WBC (Bld)1.2 %NormalBarberton Citizens Hospital Comment on above:Performed By: #### CBCA, 48001-0, PINR, 69697-0, CMP, 10653-2, 61413-7, 74579-1 #### [facility] ([id number]) [address] [place] [address] 53741Azryvdmtqlo distribution width (RBC) [Ratio]13.8 %Normal 11.5-15.0ProWise Health Surgical Hospital At ParkwayComment on above:Performed By: #### CBCA, 61029-5, PINR, 19164-5, CMP, 50851-2, 75380-5, 99233-7 #### [facility] ([id number]) [address] [place] [address] 89142Nkekeuofsy (Bld) [Volume fraction]28.6 %Akl84-43YchXdhizdWise Health Surgical Hospital At ParkwayComment on above:Performed By: #### CBCA, 48055-2, PINR, 80330- 9, CMP, 59664-8, 47457-4, 15886-6 #### [facility] ([id number]) [address] [place] [address] 01496Macuqwkrka (Bld) [Mass/Vol]9.5 g/dLLow11.7-15.5PMartins Ferry HospitalComment on above:Performed By: #### CBCA, 39609-1, PINR, 69438- 9, CMP, 81171-0, 65282-9, 67768-7 #### [facility] ([id number]) [address] [place] [address] 86337Iupoyqernof (Bld) [#/Vol]2.1 10*3/uLNormal1.0-3.5Pro[facility] Global Medical CenterComment on above:Performed By: #### CBCA, 34712-2, PINR, 54555- 9, CMP, 32472-4, 68476-3, 12498-2 #### [facility] ([id number]) [address] [place] [address] 85131Hlzdbvhaydb/100 WBC (Bld)30.1 %NormalProWise Health Surgical Hospital At Parkway Comment on above:Performed By: #### CBCA, 74391-5, PINR, 15640-5, CMP, 46448-3, 25099-1, 26918-7 #### [facility] ([id number]) [address] [place] [address] 85259WDB (RBC) [Entitic mass]29.5 kvQnzvbp49-22IciMlpvrgWise Health Surgical Hospital At ParkwayComment on above:Performed By: #### CBCA, 02745-9, PINR, 55870-8, CMP, 06282-7, 93312-3, 37280-5 #### [facility] ([id number]) [address] [place] [address] 95432NVPR (RBC) [Mass/Vol]33.4 g/lCQhztev80-79AnzMwgskcWise Health Surgical Hospital At ParkwayComment on above:Performed By: #### CBCA, 37036-1, PINR, 78716-5, CMP, 44160-3, 91130-4, 81731-9 #### [facility] ([id number]) [address] [place] [address] 95014SHB (RBC) [Entitic vol]89 uSLqrhuf25-037VcdYhbolc [facility] HospitalComment on above:Performed By: #### CBCA, 33257-6, PINR, 66139-3, CMP, 13959-5, 62096-7, 68199-3 #### [facility] ([id number]) [address] [place] [address] 55419Pqapxlgka (Bld) [#/Vol]0.4 10*3/uLNormal0-0.9Bar[facility] HospitalComment on above:Performed By: #### CBCA, 69173-6, PINR, 72497-8, CMP, 43214-4, 90007-4, 91447-0 #### [facility] ([id number]) [address] [place] [address] 20414Epauicoor/100 WBC (Bld)5.1 %NormalBarberton Citizens Hospital Comment on above:Performed By: #### CBCA, 28699-9, PINR, 78314-4, CMP, 98507-0, 85588-5, #### [facility] ([id number]) [address] [place] [address] 20562Npsheqzdgzd/100 WBC (Bld)63.1 %NormalBarberton Citizens Hospital Comment on above:Performed By: #### CBCA, 50828-5, PINR, 77529-9, CMP, 79657-9, 86745-7, 63185-7 #### [facility] ([id number]) [address] [place] [address] 94442Khlrdfui mean volume (Bld) [Entitic vol]8.1 fLNormal7-12 [facility] HospitalComment on above:Performed By: #### CBCA, 71809-1, PINR, 92785-6, CMP, 08023-1, 72063-2, 72633-1 #### [facility] ([id number]) [address] [place] [address] 80682Tnorbcowc (Bld) [#/Vol]349 10*3/uHPradxl969-785OdjOcqspe [facility] HospitalComment on above:Performed By: #### CBCA, 08028-8, PINR, 00594- 9, CMP, 42230-4, 64552-2, 72886-9 #### [facility] ([id number]) [address] [place] [address] 96996RBD COUNT3.23 X10E12/LLow3.80-5.20[facility] Comment on above:Performed By: #### CBCA, 87407-6, PINR, 42816-3, CMP, 69269-7, 23495-4, 56621-2 #### [facility] ([id number]) [address] [place] [address] 68670LQJ (Bld) [#/Vol]6.9 10*3/uLNormal4.0-11.0ProWise Health Surgical Hospital At ParkwayComment on above:Performed By: #### CBCA, 22083-4, PINR, 87048-5, CMP, 77906-2, 27178-5, 97503-8 #### [facility] ([id number]) [address] [place] [address] 41587PIJZXDTZYCABL METABOLIC PANELon 57-48-8648Ekyogxn [Mass/Vol]3.6 g/dLNormal3.2-5.3ProMedHealthBridge Children's Rehabilitation HospitalComment on above:Performed By: #### CBCA, 97273-8, PINR, 28692-4, CMP, 73168-4, 92488-5, 11974-1 #### [facility] ([id number]) [address] [place] [address] 50131FZP [Catalytic activity/Vol]61 U/QYmougr70-451TtaGlebwhWise Health Surgical Hospital At ParkwayComment on above:Performed By: #### CBCA, 71485-7, PINR, 50518-3, CMP, 02803-8, 23067-4, 10072-0 #### [facility] ([id number]) [address] FLO[address] [place], [place] [address]WYP [Catalytic activity/Vol]21 U/LNormal0-31PMartins Ferry HospitalComment on above:Performed By: #### CBCA, 23578-4, PINR, 38599-5, CMP, 82276-3, 85132-2, 38062-3 #### [facility] ([id number]) [address] [place] [address], [place] [address]Gmufd gap [Moles/Vol]6 mmol/LNormal5-15ProW[facility] Health Surgical Hospital At ParkwayComment on above:Performed By: #### CBCA, 25317-3, PINR, 07797-2, CMP, 82976-1, 00563-9, 17413-3 #### [facility] ([id number]) [address] [place] [address], [place] [address]OGT [Catalytic activity/Vol]21 U/LNormal0-41ProW[facility] Health Surgical Hospital At ParkwayComment on above:Performed By: #### CBCMonisha, 62382-8, PINR, 06009-9, CMP, 75736-6, 45550-8, 68576-7 #### [facility] ([id number]) [address] [place] [address], [place] [address]Fsnbsxszv [Mass/Vol]0.4 mg/dLNormal0.3-1.2PMartins Ferry HospitalComment on above:Performed By: #### CBCA, 28298-9, PINR, 41193-0, CMP, 98532-5, 06973-0, 34390-5 #### [facility] ([id number]) [address] [place] [address], [place] [address]Xzmmehx [Mass/Vol]8.5 mg/dLNormal8.5-10.5PMartins Ferry HospitalComment on above:Performed By: #### CBCA, 00014-7, PINR, 75125-3, CMP, 61087-3, 60757-5, 57236-1 #### [facility] ([id number]) [address] [place] [address], [place] [address]Ajrfovfo [Moles/Vol]107 mmol/BXhaicf42-592YifGcbrdhBarberton Citizens HospitalComment on above:Performed By: #### BLANCA, 87604-8, PINR, 11506-3, CMP, 40390-8, 17266-6, 56714-9 #### [facility] ([id number]) [address] [place] [address] 44385JN4 [Moles/Vol]24 mmol/TPvksvz56-13TcsWlpuztMartins Ferry Hospital Comment on above:Performed By: #### BLANCA, 12353-2, PINR, 27212-8, CMP, 12598-0, 63471-9, 35100-9 #### [facility] ([id number]) [address] [place] [address], [place] [address]Hmokcdytbv [Mass/Vol]0.67 mg/dLNormal0.40-1.00Bar[facility] HospitalComment on above:Result Comment: METHOD TRACEABLE TO IDMS STANDARD Performed By: #### BLANCA, 73385-4, PINR, 98082-8, CMP, 43909-2, 07599-4, 77495-3 #### [facility] ([id number]) [address] [place] [address] 59477kQUG (CKD-EPI) NON-RACE DEPENDENT>90Normal>59ProWise Health Surgical Hospital At ParkwayComment on above:Result Comment: Reported eGFR is based on the CKD-EPI 2021 equation that does not use a race coefficient.Performed By: #### HILDAA, 61782-1, PINR, 69161-0, CMP, 10743-9, 64873-5, 96809-0 #### [facility] ([id number]) [address] [place] [address], [place] [address]Vgjpvsm [Mass/Vol]116 mg/tWOdxn06-59OnxKywravBarberton Citizens Hospital Comment on above:Performed By: #### HILDAA, 90427-0, PINR, 35425-4, CMP, 48077-4, 11154-3, 71027-5 #### [facility] ([id number]) [address] [place] [address] 42815Mndxfcdcn [Moles/Vol]3.4 mmol/LLow3.5-5.0[facility] HospitalComment on above:Performed By: #### CBCA, 65360-3, PINR, 81864-8, CMP, 34497-0, 96187-1, 80515-6 #### [facility] ([id number]) [address] [place] [address] 92102Xmfwphd [Mass/Vol]6.6 g/dLNormal6.0-8.0ProW[facility] Health Surgical Hospital At ParkwayComment on above:Performed By: #### CBCA, 81893-1, PINR, 88899-1, CMP, 78552-5, 01350-4, 40754-7 #### [facility] ([id number]) [address] [place] [address] 54035Esytwj [Moles/Vol]137 mmol/XCsdptp290-481SxwFqkwez [facility] HospitalComment on above:Performed By: #### CBCA, 19694-4, PINR, 35674-3, CMP, 86020-9, 99448-3, 76765-4 #### [facility] ([id number]) [address] [place] [address] 53348Ibho nitrogen [Mass/Vol]9 mg/dLNormal5-23ProW[facility] Health Surgical Hospital At ParkwayComment on above:Performed By: #### CBCA, 57131-8, PINR, 91805-0, CMP, 45989-1, 76857-8, 67961-7 #### [facility] ([id number]) [address] [place] [address] 86528IB CTA CHESTon 59-00-8757SM CTA CHESTCT CTA CHEST STUDY: CT angiography of the [...] by Polo Duran MD on 03/14/2024 9:57 PMNormalBarberton Citizens HospitalFibrin D-dimer DDU (PPP) [Mass/Vol]on 03-14-2024 OICNU801 ng/mL DDUHigh <255Bar[facility]ton Citizens HospitalComment on above:Result Comment: Results >=255ng/mL DDU: Results may be indicative of the presence of VTE. The use of the Wells score and further diagnostic tests should be considered. Elevated D-Dimer levels can also be associated with DIC, neoplasm, , trauma and liver disease. Elevated levels of rheumatoid factor may lead to an overestimation of the D-Dimer level.Performed By: #### CBCA, 24238-2, PINR, 28526-7, CMP, 20613-5, 90812-2, 63492-5 #### [facility] ([id number]) [address] [place] [address], FIRST FLOOR [place], [place] [address]KIO ( test) IA.rapid Ql (S)on 38-18-3635NBZCF PREGNANCYPositiveAbnormalNEGBarberton Citizens HospitalComment on above:Performed By: #### CBCA, 79254-8, PINR, 50342-8, CMP, 61563-3, 79746-7, #### [facility] ([id number]) [address] [place] [address] 71255SOD ( test) Ql (U)on 61-50-4849Gzso HCG ( test) Ql (U)Indeterminate: Repeat in 48-72 hrsAbnormalNEGBarberton Citizens HospitalComment on above:Performed By: #### CBCA, 14286-4, PINR, 77030-3, CMP, 39375-8, 01796-1, #### [facility] ([id number]) [address] [place] [address] 02916DGP.beta subunit IA 3rd IS Qnon 03-52-6915JPB.beta subunit Qn11 m[IU]/mLNormalBarberton Citizens HospitalComment on above:Result Comment: NEW REFERENCE RANGE WEEKS (SINCE LMP) [...] trophoblastic or nontrophoblastic neoplasms. Performed By: #### CBCA, 57445-0, PINR, 78491-5, CMP, 63548-0, 86361-6, #### [facility] ([id number]) [address] [place] [address] 38830PYLGXGFFBag 45-74-2704Cmmpremiq [Mass/Vol]2.1 mg/dLNormal 1.8-2.6Bar[facility] HospitalComment on above:Performed By: #### CBCA, 61821-7, PINR, 73942-4, CMP, 53130-8, 35657-7, 78134-7 #### [facility] ([id number]) [address] [place] [address], [place] [address]THYFOWN AND INRon 55-86-7385FEN Coag (PPP) [Relative time]1.0 {INR}Normal0.8-1.1PMartins Ferry HospitalComment on above:Performed By: #### CBCA, 34159-4, PINR, 65887-8, CMP, 21184-8, 30827-6, 87211-4 #### [facility] ([id number]) [address] [place] [address], [place] 46[address]JE Coag (PPP) [Time]11.9 sNormal9.8-13.2PMartins Ferry HospitalComment on above:Result Comment: NEW REFERENCE RANGEPerformed By: #### CBCA, 10070-3, PINR, 93380-5, CMP, 82320-9, 24264-1, 20517-1 #### [facility] ([id number]) [address] [place] [address], [place] [address]Ivgnfhci I.cardiac High sensitivity method [Mass/Vol]on HOUR TROP I, HIGH SENSITIVITY<2Normal<16[facility] Comment on above:Performed By: #### CBCA, 36710-1, PINR, 52566-4, CMP, 73868-9, 87831-8, 31769-2 #### [facility] ([id number]) [address] [place] [address], [place] 0[address]FECSGHDU I, HIGH SENSITIVITY<2Normal<16ProWise Health Surgical Hospital At ParkwayComment on above:Performed By: #### CBCA, 68842-5, PINR, 82039-2, CMP, 66525-6, 86879-6, 91491-2 #### [facility] ([id number]) [address] [place] [address] [place] [address]ASS MACROSCOPIC NURon 91-05-0704ENDCJOSBZ NURNegativeNormalNEG ProMtanner medical center east alabamaa [facility] Global Medical CenterComment on above:Performed By: #### NUM #### [facility] ([id number]) [address] [place] [address] [place] 34305FOJIW/HGB NURTraceAbnormalNEGProWise Health Surgical Hospital At ParkwayComment on above:Performed By: #### NUM #### [facility] ([id number]) [address] [place] [address] [place] [address]UOYDKXL NURNegativeNormalNEGProWise Health Surgical Hospital At ParkwayCommclaren central [place] on above:Performed By: #### NUM #### [facility] ([id number]) [address] [place] [address] [place] [address]TWPLOMA NURTraceAbnormalNEGProWise Health Surgical Hospital At ParkwayComment on above:Performed By: #### NUM #### [facility] ([id number]) [address] [place] [address] [place] [address]ZYAFKTLFP ESTERASE NURNegativeNormalNEGBarberton Citizens HospitalCommclaren central [place] on above:Performed By: #### NUM #### [facility] ([id number]) [address] [place] [address] [place] [address]PHAAHKE NURNegativeNormalNEGProWise Health Surgical Hospital At ParkwayComment on above:Performed By: #### NUM #### [facility] ([id number]) [address] [place] [address] [place] 615[address]NT NUR6.5Vxxlez6.0-8.5ProMedica [facility] Global Medical CenterComment on above:Performed By: #### NUM #### [facility] ([id number]) [address] [place] [address] 84736YSFFFJV NURNegativeNormalNEGProWise Health Surgical Hospital At ParkwayComment on above:Performed By: #### NUM #### [facility] ([id number]) [address] [place] [address] 15574ILIFYZPE GRAVITY VICKI>=1.975Ltahwm2.003-1.035Bar[facility] Citizens HospitalComment on above:Performed By: #### NUM #### [facility] ([id number]) [address] [place] [address] 85204MGOTBHSOQZPZ NUR0.2 eu/dLNormal<1.1PMartins Ferry Hospital Comment on above:Performed By: #### NUM #### [facility] ([id number]) [address] [place] [address] 73246WI CHEST 1 VWon 84-42-4973IR CHEST 1 VWXR CHEST 1 VW XR CHEST 1 VW: 03/14/2024 6:30 PM CLINICAL INDICATION: Pain TECHNIQUE: AP view of the chest COMPARISON: 02/28/2024. FINDINGS: The cardiomediastinal silhouette and pulmonary vessels are within normal limits. Lungs and pleural spaces are clear. There is no pneumothorax. IMPRESSION: No acute cardiopulmonary process. Finalized by Celestine Mcdonnell MD on 03/14/2024 6:50 PMNormalBarberton Citizens HospitalaPTT Coag (PPP) [Time]on 19-72-4306nPAY Coag (Bld) [Time]35 aDccpec86-51 [facility] HospitalComment on above:Result Comment: NEW REFERENCE RANGE Performed By: #### CBCA, 92854-1, PINR, 68821-9, CMP, 92906-2, 92479-5, 87242-7 #### [facility] ([id number]) [address] [place] [address] 34573Xyjdnb Summaryon 74-84-4591Rkiwuk SummaryMLBase 64 RiqyanwzILz3oPx+PGhlYWQ+QI4TCUHgC26rlLDcmY8aD1WFBKeQCbceRERIDMcFTsHvsmIrIR1zmJAe ZXJu [file] YXB (more content not included)...[facility] HospitalED Clinical Summaryon 99-53-1201BS [facility] SummaryHolzer [facility] - Emergency Department [address] [place] [address] ED Clinical Summary PERSON INFORMATION Name: PRISCILLA TAYLOR Age: 23 Years Sex: FEMALE : 2000 MRN: Acct#: Visit Reason: Vaginal bleeding - < 20 wks ; POSS MISCARRIGE Arrival: 02/26/2024 18:28:31 Discharge: 02/26/2024 20:06:00 LOS: 000 01:38 Check In: 02/26/2024 18:28:31 Checkout:02/26/2024 20:06:00 Address: [address] [address] PCP: Provider, None PROVIDER INFORMATION Provider Role Assigned Unassigned Scott Toney MD ED Provider 02/26/2024 18:34:07 Cathleen Whitney RN ED Nurse 02/26/2024 18:46:23 VITALS INFORMATION Vital Sign Triage Latest Temperature Tympanic Temperature Temporal Artery Pulse Rate O2 Sat 98 % 98 % Respiratory Rate 16 br/min 16 br/min Blood Pressure /73 mmHg /73 mmHg MEDICAL INFORMATION Medications Given: Medication Dose Route ketorolac 10 mg Oral Allergy Information: No known allergies PHYSICIAN DOCUMENTATION Patient: PRISCILLA TAYLOR Age: 23 years Sex: FEMALE : 2000 Associated Diagnoses: demise before 20 weeks with retention of fetus; Incomplete miscarriage Author: Scott Toney MD Basic Information Time seen: Date & time 02/26/2024 18:41:00. History source: Patient. Arrival mode: Private vehicle. History limitation: None. History of Present Illness The patient presents with vaginal bleeding. presents with vaginal bleed. 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 US with 5wk [...] Rh+. Known demise at 5wk. Scheduled for d/c7/ Vag bleed today. Workup: Pelv US shows still retained product. Prelim US - still has product in uterus. ovaries neg. dispo: stable for OP f/u discussed with patient. SUPERVISOR CELLARS f/u Impression and Plan Diagnosis demise before 20 weeks with retention of fetus (LOQ14-YJ O02.1, Discharge, Medical) Incomplete miscarriage (XUA40-MP O03.4, Discharge, Medical) Plan Condition: Stable. Disposition: [...] every 6hr as needed for pain. Contact SUPERVISOR CELLARS for follow up. Return to ER as needed for any concerns. Counseled: Patient, Regarding diagnosis, Regarding diagnostic results, Regarding treatment plan, Re(more content not included)...[facility] HospitalED Note - Physicianon 48-73-2732PJ Note - PhysicianPatient: PRISCILLA TAYLOR Age: 23 years Sex: FEMALE : 2000 Associated Diagnoses: demise before 20 weeks with retention of fetus; Incomplete miscarriage Author: Scott Toney MD Basic Information Time seen: Date & time 02/26/2024 18:41:00. History source: Patient. Arrival mode: Private vehicle. History limitation: None. History of Present Illness The patient presents with vaginal bleeding. presents with vaginal bleed. 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 US with 5wk [...] Rh+. Known demise at 5wk. Scheduled for d/c7// Vag bleed today. Workup: Pelv US shows still retained product. Prelim US - still has product in uterus. ovaries neg. dispo: stable for OP f/u discussed with patient. SUPERVISOR CELLARS f/u Impression and Plan Diagnosis demise before 20 weeks with retention of fetus (OWB54-YN O02.1, Discharge, Medical) Incomplete miscarriage (AUR46-PD O03.4, Discharge, Medical) Plan Condition: Stable. Disposition: [...] every 6hr as needed for pain. Contact SUPERVISOR CELLARS for follow up. Return to ER as needed for any concerns. Counseled: Patient, Regarding diagnosis, Regarding diagnostic results, Regarding treatment plan, Regarding prescription, Patient indicated understanding of instructions. Notes: O+ type - no rhogam needed. [Electronically Signed on: 02/26/2024 19:54 EDT] Scott Toney MD [Verified on: 02/26/2024 19:54 EDT] Scott Toney MDNoLutheran HospitalED Note-Nursingon 03-56-3686ZV Note-Nursing Patient arrives with c/o vaginal bleeding [...] not take any medication. Patient is A+Ox4. [facility] HospitalED Patient Summaryon 31-84-3874UP Patient SummaryHolzer Hospital - Emergency Department [address] [place], [place] [id number] PATIENT DISCHARGE INSTRUCTIONS Patient Information Name: PRISCILLA TAYLOR Age: 23 Years Date of : 2000 Reason For Visit: Vaginal bleeding - < 20 wks ; POSS MISCARRIGE Arrival Time: 02/26/2024 18:28:31 Primary Care Physician: Provider, None Attending Physician: Scott Toney MD Comment: Visit Diagnosis: Diagnoses This Visit demise before 20 weeks with retention of fetus (O02.1) Incomplete miscarriage (O03.4) Vaginal bleeding - < 20 wks ([id number]) The Pharmacy at [facility] is open Friday through Friday from 9A to 6P and Friday and Friday from 9A to 5P Prescription Information: If you have been given a prescription for narcotics, seek immediate medical attention if you have any difficulty breathing or any sudden status changes such as confusion andsleepiness. If you or anyone you know is experiencing suicidal thoughts, mental health, alcohol and/or drug addiction problems; contact the [facility] 03/03 Crisis Hotline -Text 5QXII to [phone]. If you received any narcotics, sedation, or [...] every 6hr as needed for pain. Contact SUPERVISOR CELLARS for follow up. Return to ER as needed for any concerns Medication Information: The exam and treatment you received today in the [facility] Emergency Department were for an urgent problem and are not intended as complete care. It is important for you to follow up with a doctor, nurse practitioner, or physician?s assistant editor for ongoing care. If your symptoms become worse or you donot improve as expected and you are unable [...] so we can reach you if necessary. [facility] has provided you with a complete list of medications post discharge. 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 What increases (more content not included)...NormalWadsworth-Rittman Hospitaluder Park City HospitalUS Limitedon [id number] LimitedEXAM: US Limited HISTORY: first trimester bleed. hx [...] demise. 2. Normal ovaries. Final Dictated by: Duncan Del Cid MD Dictated DT/TM: 02/26/24 8:47 Signed (Electronic Signature): Duncan Del Cid MD 02/26/24 8:57 pm Technologist: [facility] CenterChlamydia/GC DNA, Uron 02-05-2024 Chlamydia Probe, UrNegativeNormalNEGMerJohnson Memorial HospitalComment on above:Result Comment: CHLAMYDIA TRACHOMATIS DNA not detected by nucleic acid [...] positive results by an alternative nucleic acid target.Performed By: #### [facility]P #### [address] [address] Hand Striper: Ferdinand Avelar MDGoarianerrhea Probe, UrNegativeNormalNEGMerJohnson Memorial HospitalComment on above:Result Comment: NEISSERIA GONORRHOEAE DNA not detected by nucleic acid [...] positive results by an alternative nucleic acid target.Performed By: #### [facility]P #### [address] [place], [place] [address] Hand Striper: Philip Saldaña,Urineon [id number],UrineSpecimen Description .CLEAN CATCH URINE Special Requests Site: Urine Culture NO GROWTH Report Status FINAL 02/05/2024NormalMccullough-Hyde Memorial HospitalComment on above: Performed By: #### [facility] #### [address] [address] Hand Striper: Ferdinand Avelar MD [facility] [address] [address] Hand Striper: Duncan Lizarraga MDHIV Ag/Abon [id number] Ag/AbNon-ReactiveNormal NRMccullough-Hyde Memorial HospitalComment on above:Result Comment: No laboratory evidence of HIV infection. If acute HIV infection is suspected, consider testing for HIV-1 RNA.Performed By: #### HIVCMB, GLYHGB, AHCV #### [address] [id number] Hand Striper: Ferdinand Avelar MDHIV Screenon [id number] 1+2 Ab+HIV1 p24 Ag IA QlNon-ReactiveNONREACTIVEBON UNIV[facility]ALS TRIP[facility]INT MEDICAL CENTERComment on above:No laboratory evidence of HIV infection. If acute HIV infection is suspected, consider testing for HIV-1 RNA. [facility] TRIP[facility]INT MEDICAL CENTERHemoglobin A1Con [id number] [Mass/Vol]100 mg/dL [facility], IncCommclaren [facility] [place] on above:Result Comment: The ADA and AACC recommend providing the estimated average glucose result to permit better patient understanding of their HBA1c result.Performed By: #### HIVCMB, GLYHGB, AHCV #### [address] [id number] Hand Striper: Ferdinand Avelar MDHbA1c (Bld) [Mass fraction]5.1 %Normal4.0-6.0 [facility] HospitalComment on above:Performed By: #### HIVCMB, GLYHGB, AHCV #### [facility] [address] [facility] [place] [address] Hand Striper: Manisha Saldaña Abon [id number] C AbNon-ReactiveNormal [facility] on above:Result Comment: The hepatitis C procedure used in [...] is recommended by ordering HCV RNA by PCR.Performed By: #### HIVCMB GLYHGB, AHCV #### [facility] [address] [place] [address] Hand Striper: Radha Saldañatis C Antibodyon [id number] Ab IA Ql Non-ReactiveNONREACTIVESOVAH HEALTH - DANVILLECommclaren central [place] on above: The hepatitis C procedure used [...] recommended by ordering HCV RNA by PCR. [facility] Profileon 02-05-2024T.pallidum Ab Screen Non-ReactiveNormCleveland Clinic Hillcrest HospitalCommclaren central [place] on above:Result Comment: T. pallidum antibodies are not detected. There is no serological evidence of infection with T. pallidum (early primary syphilis cannot be excluded). Retest in 2-4 weeks if syphilis is clinically suspect.Performed By: #### PRENAT #### [address] [address] Hand Striper: Ferdinand Avelar MD [facility] [address] [place] [address] [place] [address] Hand Striper: Duncan Lizarraga [facility] Hospital at Stone Countyatal Profile Ion [id number] (Bld) [#/Vol]0.03 10*3/uLBON SECOURS MERCY HEALTHBasophils/100 WBC (Bld)0 %0 - 2 %[facility] HEALTHEosinophils (Bld) [#/Vol]0.08 10*3/uLBON SECOURS MERCY HEALTHEosinophils/100 WBC (Bld)1 %1 - 4 %[facility] HEALTHErythrocyte distribution width (RBC) [Ratio]14.6 %High11.8 - 14.4 %[facility] HBV surface Ag IA QlNon-ReactiveNONREACTIVEBON [facility]OU[facility]HAVIORAL HOSPITALHematocrit (Bld) [Volume fraction]34.6 %Low36.3 - 47.1 %[facility] HOSPITALHemoglobin (Bld) [Mass/Vol]11.8 g/dLLow11.9 - 15.1 g/dLBON SECOURS GE[facility]GETOWN BEHAVIORAL HOSPITALImmature granulocytes (Bld) [#/Vol][facility] HOSPITALImmature granulocytes/100 WBC (Bld)0 %0[facility] HEALTHInterpretation and review of laboratory results AbnormalB[facility] HEALTHLymphocytes/100 WBC (Bld)31 %24 - 43 %[facility] HEALTHLymphocytes/100 WBC (Bld)2.35 %[facility]OSPITALH (RBC) [Entitic mass]30.1 pg25.2 - 33.5 pgBON SECOURS [facility] VALLEY HOSPITALHC (RBC) [Mass/Vol]34.1 g/dL28.4 - 34.8 g/dLBON SECOURS [facility] VALLEY HOSPITALV (RBC) [Entitic vol]88.3 fL82.6 - 102.9 fLBON SECOURS [facility] HEALTHMonocytes/100 WBC (Bld)8 %3 - 12 %[facility] HEALTHMonocytes/100 WBC (Bld)0.58 %[facility] HEALTHNeutrophils/100 WBC (Bld)60 %36 - 65 %[facility] HOSPITALNucleated RBC/100 WBC (Bld) [Ratio]0.0 %0.0 per 100 WBCBON SECOURS GE[facility]GETOWN BEHAVIORAL HOSPITALPlatelet mean volume (Bld) [Entitic vol]10.5 fL8.1 - 13.5 fLBON SECOURS [facility]ERSITY H[facility]ERY HEALTH Platelets (Bld) [#/Vol]372 10*3/uLSOVAH HEALTH - DANVILLERBC (Bld) [#/Vol]3.92 10*6/uLLow3.95 - 5.11 m/uLSOVAH HEALTH - DANVILLERubella virus IgG IA Ql59.7 IU/mLRiverside Health System on above: <10 NON REACTIVE Negative for Anti-Rubella IgG >=10 REACTIVE Positive for Anti Rubella IgG The presence of IgG antibody to Rubella virus is an indication of previous exposure either by prior infection or vaccination. Segmented neutrophils/100 WBC (Bld)4.53 %SOVAH HEALTH - DANVILLET. pallidum Ab IA Ql (S)Non-ReactiveNONREACTIVERiverside Health System on above: T. pallidum antibodies are not detected. There is no serological evidence of infection with T. pallidum (early primary syphilis cannot be excluded). Retest in 2-4 weeks if syphilis is clinically suspect. WBC other (Bld) [#/Vol]7.6BON ST[facility]ALTH[facility]ARE CENTERT4, [facility] 26-23-9212Fnxw T4 [Mass/Vol]0.8 ng/dLLow0.92 - 1.68 ng/dLBCRITICAL ACCESS HOSPITALInterpretation and review of laboratory resultsAbnormalSOUTHERN VIRGINIA REGIONAL MEDICAL CENTERThyroxine, [facility] 15-63-1119Qebsemush, Free 0.8 ng/dLLow0.92-1.68M[facility]de Memorial HospitalComment on above:Performed By: #### TSHX #### [facility] [address] [place] [address] Hand Striper: Duncan Lizarraga MD #### FT4 #### [facility] [address] [place] [address] Hand Striper: Ferdinand Avelar [facility] CENTERRENATAL TYPE AND SCREENon 22-65-5087MAG and Rh group Nom (Bld)Blood group O Rh(D) positiveSOVAH HEALTH - DANVILLEBlood group antibodies identified NomNegativeBON ST. MARY'S HEALTHCARE CENTERPrenatal Profileon 81-12-9623Tmv B Surf AgNon-ReactiveNormalNRMccullough-Hyde Memorial HospitalComment on above:Performed By: #### PRENAT #### [address] [address] Hand Striper: Ferdinand Avelar MD [address] [place] [phone] Hand Striper: Damaris Gambino, IgG59.7 IU/mLNormalMccullough-Hyde Memorial HospitalComment on above:Result Comment: <10 NON REACTIVE Negative for Anti-Rubella IgG >=10 REACTIVE Positive for Anti Rubella IgG The presence of IgG antibody to Rubella virus is an indication of previous exposure either by prior infection or vaccination.Performed By: #### PRENAT #### [address] [address] Hand Striper: Ferdinand Avelar MD [address] [place] [address] Hand Striper: MDAbs. Maki Basophil0.03 k/uLNormal0.00-0.20M[facility]de Memorial HospitalComment on above:Performed By: #### PRENAT #### [address] [address] Hand Striper: Ferdinand Avelar MD [address] [place] [address] Hand Striper: MDAbs. MakiImm.Granulocyte<0.39Lhvtxa9.00-0.30M[facility]ull[facility]-Hyde Memorial HospitalComment on above:Performed By: #### PRENAT #### [address] [address] Hand Striper: Ferdinand Avelar MD [address] [place] [phone] Hand Striper: MDAbs. MakiNeutrophil (Seg)4.53 k/uLNormal1.50-8.10[facility] on above:Performed By: #### PRENAT #### [address] [place] [address] Hand Striper: Ferdinand Avelar MD [address] [place] [phone] ( Hand Striper: Duncan Lizarraga MDBasophils/100 WBC (Bld)0 %Normal0-2MCleveland Clinic FoundationComment on above:Performed By: #### PRENAT #### [address] [address] Hand Striper: Ferdinand Avelar MD [address] [place] [address] Hand Striper: Duncan Lizarraga MDEosinophils (Bld) [#/Vol]0.08 10*3/uLNormal 0.00-0.44M[facility]-Hy[facility] Memorial HospitalComment on above:Performed By: #### PRENAT #### [address] [address] Hand Striper: Ferdinand Avelar MD [address] [place] [address] Hand Striper: Duncan Lizarraga MDEosinophils/100 WBC (Bld)1 %Normal1-4M[facility]-Hy[facility] Memorial HospitalComment on above:Performed By: #### PRENAT #### [address] [address] Hand Striper: Ferdinand Avelar MD [address] [place] [phone] Hand Striper: Duncan Lizarraga MDErythrocyte distribution width (RBC) [Ratio]14.6 % High11.8-14.4M[facility]-Hy[facility] Memorial HospitalCommclaren central [place] on above:Performed By: #### PRENAT #### [address] [address] Hand Striper: Ferdinand Avelar MD [address] [place], [place] [address]83 Hand Striper: Duncan Lizarraga MDHematocrit (Bld) [Volume fraction]34.6 %Low 36.3-47.1MCleveland Clinic FoundationComment on above:Performed By: #### PRENAT #### [address] [address] Hand Striper: Ferdinand Avelar MD [address] [place] [phone] Hand Striper: Duncan Lizarraga MDHemoglobin (Bld) [Mass/Vol]11.8 g/dLLow11.9-15.1 [facility] Memorial HospitalComment on above:Performed By: #### PRENAT #### [address] [address] Hand Striper: Ferdinand Avelar MD [address] [place] [address] Hand Striper: Duncan Lizarraga MDImmature granulocytes/100 WBC (Bld)0 %Frvuyd6NhbanMccullough-Hyde Memorial HospitalComment on above:Performed By: #### PRENAT #### [address] [address] Hand Striper: Ferdinand Avelar MD [address] [place] [address] Hand Striper: Duncan Lizarraga MDLymphocytes (Bld) [#/Vol]2.35 10*3/uLNormal 1.10-3.70M[facility]ull[facility]-Hyde Memorial HospitalComment on above:Performed By: #### PRENAT #### [address] [address] Hand Striper: Ferdinand Avelar MD [address] [place] [phone] Hand Striper: Cooper Gambinomphocytes/100 WBC (Bld)31 %Rjujbb15-14OlyncMccullough-Hyde Memorial HospitalComment on above:Performed By: #### PRENAT #### [address] [address] Hand Striper: Ferdinand Avelar MD [address] [place] [phone] Hand Striper: AMANDO GambinoCH (RBC) [Entitic mass]30.1 idKeielz58.2-33.5 [facility] HospitalComment on above:Performed By: #### PRENAT #### [address] [address] Hand Striper: Ferdinand Avelar MD [address] [place] [phone] Hand Striper: MELONIE GambinoC (RBC) [Mass/Vol]34.1 g/eCKiache76.4-34.8[facility] HospitalComment on above:Performed By: #### PRENAT #### [address] [address] Hand Striper: Ferdinand Avelar MD [address] [place] [phone] Hand Striper: AMANDO GambinoCV (RBC) [Entitic vol]88.3 jTOydgob80.6-102.9 [facility] Memorial HospitalComment on above:Performed By: #### PRENAT #### [address] [address] Hand Striper: Ferdinand Avelar MD [address] [place] [address] Hand Striper: AMANDO Gambinoonocytes (Bld) [#/Vol]0.58 10*3/uLNormal0.10-1.20 [facility] HospitalComment on above:Performed By: #### PRENAT #### [address] [place] [address] Hand Striper: Ferdinand Avelar MD [address] [place] [phone] Hand Striper: AMANDO Gambinoonocytes/100 WBC (Bld)8 %Normal3-12M[facility]-Hyde Memorial HospitalComment on above:Performed By: #### PRENAT #### [address] [address] Hand Striper: Ferdinand Avelar MD [address] [place] [phone] Hand Striper: Duncan Lizarraga MDNeutrophil (Seg)60 %Wxslhh66-08Xffob Tiffin HospitalComment on above:Performed By: #### PRENAT #### [address] [address] Hand Striper: Ferdinand Avelar MD [address] [place] [phone] Hand Striper: Duncan Lizarraga MDNRBC Automated0.0 per 100 WBCNormal0.0M[facility]ull[facility]-Hyde Memorial HospitalComment on above:Performed By: #### PRENAT #### [facility] [address] [place] [address] Hand Striper: Ferdinand Avelar MD [address] [place] [phone] Hand Striper: Shaquille Gambino mean volume (Bld) [Entitic vol]10.5 fL Normal8.1-13.5M[facility]ull[facility]-Hy[facility] Memorial HospitalComment on above:Performed By: #### PRENAT #### [address] [address] Hand Striper: Ferdinand Avelar MD [address] [place] [phone] Hand Striper: Clyde Gambinotecalos (Bld) [#/Vol]372 10*3/zANcdusi367-542 [facility] HospitalComment on above:Performed By: #### PRENAT #### [facility] [address] [place] [address] Hand Striper: Ferdinand Avelar MD [address] [place] [address] Hand Striper: SHAYY Gambino (d) [#/Vol]3.92 10*6/uLLow3.95-5.11[facility] HospitalComment on above:Performed By: #### PRENAT #### [facility] [address] [place] [address] Hand Striper: Ferdinand Avelar MD [address] [place] [address] Hand Striper: KATELYN Gabmino ([facility]) [#/Vol]7.6 10*3/uLNormal3.5-11.3MWayne Hospital HospitalComment on above:Performed By: #### PRENAT #### [address] [place] [address] Hand Striper: Ferdinand Avelar MD [address] [place] [address] Hand Striper: JESSIKA Gambinorenatal Type + Scrnon 28-68-8040Gvuhxhan Type + ScrnNegativeNormalRegency Hospital Cleveland East HospitalComment on above:Performed By: #### PRTYS #### [address] [place] [phone] Hand Striper: Duncan Lizarraga MDSHRINERS HOSPITAL FOR CHILDREN w/reflex to FT4on 86-80-4309Jdyhomo Stim. Horm.6.24 uIU/mLHigh0.30-5.00[facility] HospitalComment on above:Performed By: #### TSHX #### [address] [place] [address] Hand Striper: Duncan Lizarraga MD #### FT4 #### [employer] [address] [place], [place] [address] Hand Striper: Ferdinand Avelar MDSHRINERS HOSPITAL FOR CHILDREN with Reflexon 56-77-2378Csqcfwxmemnotb and review of laboratory resultsAbnormalBON [facility] Qn6.24 m[IU]/L HighBON ST. [facility]S [facility] Vital Signs Date TimeVital SignValuePerforming IikihinxoNwypzawo98-62-2197 11:48-0400Body tzhpsa05.08 kgCorey Brannon DO Work Phone: NOIL Mcjsvtwezw94-94-4841 11:48-0400Diastolic blood vcaogmml22 mm[Hg]David Brannon DO Work Phone: [facility]OM[facility] JosephQnfbyubpuj50-83-7781 11:48-0400Systolic blood lawptbtr859 mm[Hg]David Brannon DO Work Phone: [facility] Encounters Encounter DateEncounter TypeCare ProviderFacilityStart: 05-26-2025 End: 70-44-8923Edorqx flowsheetCorey Brannon DO Work Phone: [facility] [place] OBGYNStart: 05-26-2025 End: 21-67-7785Giieqk flowsheetCorey Brannon DO Work Phone: noMS [place] OBGYNStart: 05-26-2025 End: 07-56-0769Tbhtyr outpatient visit 15 minutesCorey Brannon DO Work Phone: noMS [place] OBGYNComment on above:Second trimester ([facility]); 13 weeks gestation of ([facility]); Thyroid diseaseStart: 05-26-2025 End: 64-66-0084zyfsuobosiYETXN FAZIONot AvailableStart: 05-05-2025 End: 19-80-4286Mbiwidrji encounterCorey Brannon DO Work Phone: [facility] OBGYNStart: 05-02-2025 End: 91-11-6013Zgiubxbjw Result EncounterEstrellita Joyce CASTANO Work Phone: NO External Department UnsolicitedStart: 05-02-2025 End: 16-01-7343Snnapdngs Result EncounterEstrellita Birdjulius CASTANO Work Phone: NO External Department UnsolicitedStart: 04-22-2025 End: 08-20-6708Zcphrr outpatient visit 5 minutesFazio Nurse Noms Bcp ObNO [place] OBGYNComment on above:GA: 0o0eYaryy: 04-22-2025 End: 42-47-5839nmfmxdtvgtQLCVT FAZIONot AvailableStart: 03-05-2025 End: 21-75-7215Wwpwrvowf department patient visitRAVI NARROhio State East Hospital HospitalStart: 01-24-2025 End: 18-54-9869npovofksnaGKTIRAscension St[facility] Ambulatory PPGStart: 01-19-2025 End: 24-46-6293yuhcyozzcfUQFWC [facility] HospitalStart: 72-68-3219jltqhbfxhqNQTWB [facility] HospitalStart: 01-17-2025 End: 11-77-2469oibenzrcouQXTORAscension St. [facility] Ambulatory PPGStart: 11-19-2024 End: 07-76-7572jwxwiluzsuZKHRV L [facility] HospitalStart: 10-31-2024 End: 83-71-4971Bfauddlke department patient visitNOT IN SYSTEM [facility] HospitalStart: 09-20-2024 End: 81-33-4373Sftyzbbzy department patient visitNOT IN SYSTEM [facility] HospitalStart: 04-13-2024 End: 80-93-4150Paazwkbfiy and management of inpatientEVAN R BASILIAFFEYPMetroHealth Parma Medical Center HospitalStart: 04-13-2024 End: 91-77-0709Xszynnrzuh and management of inpatientLISA M COUGHLINEast [facility] HospitalStart: 04-05-2024 End: 10-65-5723jlfesxqgkqJOUM M COUGHLINEast [facility] HospitalStart: 03-22-2024 End: 21-97-4118obpkcujcjsQOPEDA N [facility] HospitalStart: 03-15-2024 End: 11-66-4334svpunpdvvuCBVIOG N [facility] PPGStart: 03-14-2024 End: 70-17-1492Jzxxkjyak department patient visitAHALAN CEJAPhysicians & Surgeons Hospital HospitalStart: 03-14-2024 End: 26-11-5162Oqfmdxqyv department patient visitAMBER [facility] HospitalStart: 03-14-2024 End: 26-32-1397Zvuyfdrqv department patient visitAMBER [facility] HospitalStart: 36-87-4440lzejasonprZKA IN SYSTEM [facility] Ambulatory PPGStart: 15-49-3527wmbjtnffhzKMM IN SYSTEM [facility] Ambulatory PPGStart: 02-26-2024 End: 35-86-1800Clmzhknnj department patient visitQuadonay Polk LeFacility:Liliam HospitalStart: 02-04-2024 End: 29-58-0372lojwpogtxeBRTYOR Alejandro SULEMA Lynnette [facility] HospitalStart: 02-04-2024 End: 95-61-5066Kgropqkrut hospital visit by physicianOUR LADY [facility] LaboratoryComment on above:Amenorrhea; 6 weeks gestation of ; Encounter for supervision of other normal in first trimester Procedures DateProcedureProcedure DetailPerforming ClinicianStart: 08-17-5916Pemrw dip stick/tablet rgnt non-auto w/o micrscpCorey Brannon DO Work Phone: Start: 70-07-8958OPFRADHA CASTANO Work Phone: Start: 04-28-2025 End: 85-27-9560Lfesp dip stick/tablet rgnt non-auto w/o micrscpCorey Brannon DO Work Phone: Start: 46-52-6808Icgooe-up visitFollow-upCORILexi CALLEVACHStart: 43-84-1101Ljwho of free thyroxineCarelroy Bajwa DO Work Phone: Start: 02-04-2024 End: 11-82-5697Nyourgbc hiv-1&hiv-2 single resultCarelroy Bajwa DO Work Phone: Plan of Treatment DateCare ActivityDetailAuthorStart: 44-60-4002WZbR/Tdap/Td vaccine (8 - Td or Tdap)DTaP/Tdap/Td vaccine (8 - Td or Tdap)[facility] WESTLAURA [facility] HOSPITALStart: 05-26-2025 End: 06-19-6552Audrvaa encounter procedureNOMS Danielle OBGYNComment on above: ArrivedStart: 04-22-2025 End: 29-03-6406FHI/RhABO/Rh Lab Routine Missed menses , unspecified gestational age ([facility]) Expected: 04/22/2025 (Approximate), Expires: 04/22/2026NOMS HealthcareComment on above:Expected: 04/22/2025 (Approximate), Expires: 04/22/2026Start: 04-22-2025 End: 61-66-8587Sgcng type and Indirect antibody screen panel - BloodType and screen Lab Routine Missed menses , unspecified gestational age ([facility]) Expected: 04/22/2025 (Approximate), Expires: 04/22/2026[facility] Work Phone: comment on above:Expected: 04/22/2025 (Approximate), Expires: 04/22/2026Start: 04-22-2025 End: 72-11-3418Yluyf of abuse panel - Urine by Screen methodRapid drug screen, urine Lab Routine , unspecified gestational age ([facility]) Encounter for supervision of normal first in first trimester ([facility]) Expected: 04/22/2025 (Approximate), Expires: 04/22/2026NOIL HealthcareComment on above: Expected: 04/22/2025 (Approximate), Expires: 04/22/2026Start: 04-22-2025 End: 00-62-6125Ovnaaqvhlav [Units/volume] in Serum or PlasmaTSH Lab Routine Thyroid disease Expected: 04/22/2025 (Approximate), Expires: 04/22/2026NOMS HealthcareComment on above:Expected: 04/22/2025 (Approximate), Expires: 04/22/2026Start: 77-52-4738Urxepzqiayz Syncytial Virus (RSV) or age 60 yrs+ (1 - Risk 1-dose series)Respiratory Syncytial Virus (RSV) or age 60 yrs+ (1 - Risk 1-dose series)[facility] DANVILLEStart: 20-34-2167Slfuyppoh vaccinationFlu vaccine (Season Ended)[facility] DAN[facility]ILLEStart: 02-10-2024 End: 48-15-0822Eweamdg encounter fkfbrpzir77/02/2024 9:30 AM EDT Routine [facility] OBSTETRICS & GYNECOLOGY Part of [address] [place] [address] Melissa Hernandez,DO [address] [place] [address] [facility] OBSTETRICS & GYNECOLOGY Part [facility] HospiceComment on above:Repeat datingStart: 02-10-2024 End: 73-85-5561Flkgutowsehk / ancillary services osyopqfhhv49/02/2024 9:00 AM EDT Ancillary Procedure [facility] OBST[facility]YNECOLOGY Part of [address] [place] [address] Repeat dating/OBCHILDREN'S [facility]YN[facility]Y [facility] CenterComment on above:Repeat dating/OBStart: 25-15-1390Wscbgrocm for malignant neoplasm of cervixPap smearSOVAH HEALTH - DANVILLEStart: 12-02-2019 Hepatitis C screeningHepatitis C screenSOVAH HEALTH - DANVILLEStart: 2017 Screening for Chlamydia trachomatisChlamydia/GC screenSOVAH HEALTH - DAN[facility]IL[facility] Start: 71-52-5631LFS screeningHIV screenSOVAH HEALTH - DANVILLEStart: 19-31-1215Axcpvrrqai MonitoringDepression MonitoringSOVAH HEALTH - DANVILLE Start: 62-88-5890PDGEC-19 Vaccine (#1)COVID-19 Vaccine (#1)[facility] DANVILLEStart: 82-44-2174Tomkbosii B vaccine (1 of 3 - 3-dose series)Hepatitis B vaccine (1 of 3 - 3-dose series)[facility] DANVILLEBacteria identified in Urine by CultureUrine culture Microbiology Routine Missed menses Ordered: 04/22/2025[facility] HealthcareComment on above:Ordered: 04/22/2025 End: 02-04-2024.trachomatis N.gonorrhoeae DNA, UrineSOVAH HEALTH - DANVILLE Comment on above:1 Occurrences starting 02/04/2024 until 02/04/2024BC W Auto Differential panel - BloodCBC and differential Lab Routine Missed menses , unspecified gestational age ([facility]) Ordered: 04/22/2025[facility] HealthcareComment on above:Ordered: 04/22/2025 End: 18-96-4648Gjdhzrl, UrineSOVAH HEALTH - DANVILLEComment on above:1 Occurrences starting 02/04/2024 until 02/04/2024 End: 64-79-0868Ywqawnbmct A1c/Hemoglobin.total in Valocor TherapeuticsSOVAH HEALTH - DANVILLE Work Phone: Comment on above:1 Occurrences starting 02/04/2024 until 02/04/2024Hemoglobin A1c/Hemoglobin.total in BloodHemoglobin A1c Lab Routine Missed menses , unspecified gestational age ([facility]) Ordered: 04/22/2025[facility] HealthcareComment on above:Ordered: 04/22/2025Hepatitis B virus surface Ag [Presence] in Serum or Plasma by ImmunoassayHepatitis B surface antigen Lab Routine Missed menses , unspecified gestational age ([facility]) Ordered: 04/22/2025[facility] HealthcareComment on above:Ordered: 04/22/2025 Hepatitis C virus Ab [Presence] in Serum or Plasma by ImmunoassayHepatitis C antibody Lab Routine Missed menses , unspecified gestational age ([facility]) Ordered: 04/22/2025NO[facility] HealthcareComment on above:Ordered: 04/22/2025 HIV-1/HIV-2 antigen/antibody combination immunoassayHIV-1 and HIV-2 antibodies Lab Routine Missed menses , unspecified gestational age ([facility]) Ordered: 04/22/2025[facility] HealthcareComment on above:Ordered: 04/22/2025Reagin Ab [Presence] in Serum by RPRRPR Lab Routine Missed menses , unspecified gestational age ([facility]) Ordered: 04/22/2025NO[facility] HealthcareComment on above: Ordered: 04/22/2025Rubella antibody, IgGRubella antibody, IgG Lab Routine Missed menses , unspecified gestational age ([facility]) Ordered: 04/22/2025NO[facility] HealthcareComment on above:Ordered: 04/22/2025 Payers DatePayer CategoryPayerPolicy ID2025MedicaidHUMANAHUMANA [employer]ALTHY [employer] MEDICAID [place] ..[id number] [id number] [id number] [id number] [id number] .1.529289.3.57[id number] .1.512039.3.57[id number] 2.1.453802.3.57[id number] 2.1.645961.3.57[id number] 2.840.1.278383.3.57[id number] 2.840.1.963925.3.57[id number] 2.840.1.635470.3.57[id number] 2.840.1.996844.3.57[id number] 2.0.1.632557.3.57[id number] 2.840.1.192711.3.57[id number] 2.0.1.848968.3.57[id number] 2.0.1.878859.3.57[id number] 2.840.1.363722.3.57[id number] 2.0.1.060124.3.57[id number] 2.840.1.556541.3.579.2.2[id number] 2.840.1.968619.3.57[id number] 2.840.1.237855.3.57[id number] 2.840.1.479986.3.579.[id number] 2.840.1.573208.3.57[id number] 2.840.1.483902.3.57[id number] 2.0.1.275847.3.57[id number] 2.840.1.209228.3.579.2.1259 Social History DateTypeDetailFacilityStart: 56-88-8684Nlmfgnl smoking status NHISNever smoked tobaccoBON BlackBamboozStudio [facility]Start: 64-35-1783Qbsbzxx use and exposure Smokeless tobacco non-userYUMA [facility]ION[facility] BlackBamboozStudio [facility]ENTERStart: 35-19-7762Rdnlxbo intakeEx-drinker (finding)[facility]ITALOxford Ph[employer] Group [facility]Start: 38-24-9586Qozrtjg of Social functionBON BANNER REHABILITATION HOSPITAL WESTEvoke Pharma [facility]Start: 01-09-3752Foeitoq use panelBRIGHAM AND WOMEN'S FAULKNER HOSPITALEvoke Pharma [facility] [facility]ENTERStart: [id number] [employer] [facility]ENTERStart: [id number] Assigned At BirthNot on fileBRIGHAM AND WOMEN'S FAULKNER HOSPITALEvoke Pharma [facility] smoking status NHISTobacco smoking consumption unknownSTEWARD HEALTH [facility] HealthcareStart: [id number] Healthcare History of Present illness Narrative 05-26-2025 Note Date & [id number] History of Present illness Narrative* OMAIRA Rios - 05/26/2025 11:40 AM EDT Reason for Appointment: Patient ID: Priscilla Taylor is a 24 y.o. female who presents for Routine Visit Patient presents today for Return OB appointment. MEDICATIONS Current Outpatient Medications Medication Instructions levothyroxine (SYNTHROID) 100 mcg, Oral, Daily before breakfast levothyroxine (SYNTHROID, LEVOXYL) 75 mcg, Oral, Daily before breakfast ondansetron (ZOFRAN) 4 mg, Oral, Every 6 hours PRN, Take 1 tablet by mouth every 6 hours as needed for nausea. ALLERGIES Allergies[1] PROBLEMS Active Ambulatory Problems Diagnosis Date Noted No Active Ambulatory Problems Resolved Ambulatory Problems Diagnosis Date Noted No Resolved Ambulatory Problems No Additional Past Medical History HISTORY PAST MEDICAL HISTORY SOCIAL HISTORY Medical History[2] Social History Tobacco Use Smoking status: Not on file Smokeless tobacco: Not on file Substance Use Topics Alcohol use: Not on file Drug use: Not on file FAMILY HISTORY Family History[3] SURGICAL HISTORY Surgical History[4] REVIEW OF SYSTEMS Review of Systems: Review of Systems Constitutional: Negative. HENT: Negative. Eyes: Negative. Respiratory: Negative. Cardiovascular: Negative. Gastrointestinal: Negative. Genitourinary: Negative. Musculoskeletal: Negative. Skin: Negative. Neurological: Negative. All other systems reviewed and are negative. Hematological: Negative. Endocrine: Negative. Allergic/Immunologic: Negative. OBJECTIVE Objective: Physical Exam Constitutional: Appearance: Normal appearance. She is normal weight. HENT: Head: Normocephalic. Cardiovascular: Rate and Rhythm: Normal rate. Pulses: Normal pulses. Pulmonary: Effort: Pulmonary effort is normal. Breath sounds: Normal breath sounds. Abdominal: Palpations: Abdomen is soft. Musculoskeletal: General: Normal range of motion. Neurological: General: No focal deficit present. Mental Status: She is alert and oriented to person, place, and time. Psychiatric: Mood and Affect: Mood normal. Behavior: Behavior normal. Thought Content: Thought content normal. Judgment: Judgment normal. Vitals and nursing note reviewed. Vitals: There is no height or weight on file to calculate BMI. BP: 108/68 Patient's last menstrual period was 02/21/2025. ASSESSMENT & PLAN ICD-10-CM 1. Second trimester ([facility]) Z34.92 POCT urinalysis dipstick manually resulted 2. 13 weeks gestation of ([facility]) Z3A.13 3. Thyroid disease E07.9 Return OB: Patient presents today for a routine obstetrics appointment. Patient is currently 13w3d . Patient states she is doing well but has complaints of being tired due to current . Patient has verbalizes frequent movement. Orders Placed This Encounter Procedures POCT urinalysis dipstick manually resulted Follow Up: Patient is to return to office in 4 week for routine OB appointment. Documented by OMAIRA Rios on behalf of: David South DO [1] Allergies Allergen Reactions Peanut-Containing Drug Products Rash and Shortness of breath Other Reaction(s): Rash-Severe, Respiratory Difficulty [2] No past medical history on file. [3] No family history on file. [4] Past Surgical History: Procedure Laterality Date CT ANGIOGRAM HEART CORONARY 03/14/2024 CT ANGIOGRAM TAVR 03/14/2024 CT ANGIOGRAM HEART CORONARY 03/14/2024 CT ANGIOGRAM TAVR 03/14/2024 documented in this [facility] Telephone encounter Note 05-05-2025 Note Date & [id number] Telephone encounter Note* Telephone Encounter - Faith Herrera - 05/05/2025 3:17 PM EDT Patient called, she is around 9-10 weeks , she is experiencing a sore throat, runny nose, and headache. Patient is also feeling feverish. I spoke with our AUDIO/VIDEO TECHNICIAN here and she suggested Tylenol for now and to call back if she is not any better after a few days, we may phone in medication at thattime. Patient has upcoming appointment with Dr. South in May, Patient voiced understanding. [facility] Healthcare Note 05-05-2025 Note Date & [id number] Miscellaneous Notes* Telephone Encounter - Faith Herrera - 05/05/2025 3:17 PM EDT Patient called, she is around 9-10 weeks , she is experiencing a sore throat, runny nose, and headache. Patient is also feeling feverish. I spoke with our AUDIO/VIDEO TECHNICIAN here and she suggested Tylenol for now and to call back if she is not any better after a few days, we may phone in medication at thattime. Patient has upcoming appointment with Dr. South in May, Patient voiced understanding. documented in this [facility] History of Present illness Narrative 04-22-2025 Note Date & [id number] History of Present illness Narrative* Kaitlin Corado MA - 04/22/2025 10:30 AM EDT Reason for Appointment: Patient ID: Priscilla Taylor is a 24 y.o. female who presents [...] urinalysis dipstick manually resulted Positive urine test ([facility]) - OB transvaginal; Future , unspecified gestational age ([facility]) - Type and screen; Future - ABO/Rh; Future - CBC and differential - Hemoglobin A1c - RPR - Rubella antibody, IgG - Hepatitis B surface antigen - Hepatitis C antibody - HIV-1 and HIV-2 antibodies - Rapid drug screen, urine; Future Encounter for supervision of normal first in first trimester ([facility]) - Rapid drug screen, urine; Future Nausea and vomiting in ([facility]) - ondansetron (Zofran) 4 MG tablet; Take [...] or undercooked meat, and stay away from [facility]. Patient has also been advised to [...] by: Kaitlin Corado MA [facility] 02-26-2024 Note Date & [id number] NoteEducation Materials Obstetrics and Gynecology Incomplete Miscarriage An [...] have an incomplete miscarriage: ? Using a kvhzq-sfp-xmne approach (expectant management) to treat a miscarriage. [...] the uterus (endometrium). The cervix is the lowestpart of the uterus, which opens into the [...] these instructions at home: Medicines ? Take hgjb-agp-stlecqq and prescription medicines only as told by your health care provider. ? If you were prescribed antibiotic medicine, take your antibiotic as told by your health care provider. Do not stop taking the antibiotic even if you start to feel better. Activity ? Rest as told by your health care provider. Ask your health care provider what activities are safefor you. ? Have someone help with home [...] provider to discuss any important steps you shouldtake for your health. Also, discuss steps you should take to have a healthy in the future. ? Keep all follow-up visits. This is important. Where to find more information ? [employer]: acog.org ? [place] Department of Health and Human Services Office of Women's Health: hrsa.gov/nzyyno-wbvjre-eoiatq Contact a health care provider if: ? [...] or have thoughts about taking your own life,get help right away. Go to your nearest emergency department or: ? Call your local emergency services (404 in the [place] ? Call a suicide crisis helpline, such as the National Suicide Prevention Lifeline at or 213 in the [place] This is open 24 hours a day in the [place] ? Text the Crisis Text Line at 124339 (in the [place] Summary ? An incomplete [...] your health care provider what activities are safefor you. ? To help you and your partner with the grieving process, talk with your health care provider or get counseling to help de (more content not included)... [facility] Evaluation note Note Date & TypeNoteFacilityEvaluation note* Diagnosis Amenorrhea Absence of menstruation 6 weeks gestation of Encounter for supervision of other normal in first trimester documented in this encounter [facility] Evaluation note Note Date & TypeNoteFacilityEvaluation note* Diagnosis Missed menses Positive urine test ([facility]) Missed menses Positive urine test ([facility]) , unspecified gestational age ([facility]) Encounter for supervision of normal first in first trimester ([facility]) Nausea and vomiting in ([facility]) Unspecified vomiting of , unspecified as to episode of care Thyroid disease Unspecified disorder of thyroid documented in this encounter [facility] Healthcare Evaluation note Note Date & TypeNoteFacilityEvaluation note* Diagnosis Second trimester ([facility]) state, incidental 13 weeks gestation of ([facility]) Thyroid disease Unspecified disorder of thyroid documented in this encounter [facility] Summary Purpose Family History No Family History [...] section and content) DATE CREATED AUTHOR 02/05/2024 [facility] DATE CREATED AUTHOR AUTHOR'S ORGANIZ ATION 03/10/2024 [facility] DATE CREATED AUTHOR AUTHOR'S ORGANIZ ATION 04/21/2024 [facility] DATE CREATED AUTHOR AUTHOR'S ORGANIZ ATION 01/22/2025 [facility] DATE CREATED AUTHOR AUTHOR'S ORGANIZ ATION 01/26/2025 [facility] DATE CREATED AUTHOR AUTHOR'S ORGANIZ ATION 03/06/2025 [facility] DATE CREATED AUTHOR AUTHOR'S ORGANIZ ATION 05/28/2025 [facility] EPIC Reason for Visit (unrecogniz ed section and content) ReasonCommentsAmenorrheaReasonCommentsRoutine Visit Care Teams (unrecognized sec tion and content) Team MemberRelationshipSpecialtyStart DateEnd Date Gabriel Booker PA [address] [place] [address] PCP - Generalmily Medicine04/22/25Team MemberRelationshipSpecialtyStart DateEnd Date Gabriel Booker PA [address] [place] [address] PCP - GeneralFamily Medicine04/22/25Team MemberRelationshipSpecialtyStart DateEnd Date Gabriel Booker PA [address] [place] [address] PCP - GeneralFamily Medicine04/22/25Te MemberRelationshipSpecialtyStart DateEnd Date Gabriel Booker PA [address] [place] [address] PCP - [facility] Medicine04/22/25Te MemberRelationshipSpecialtyStart DateEnd Date Gabriel Booker PA [address] [place] [address] PCP - [facility]04/22/25 FOR RECORDS PERTAINING TO PATIENTS WHO ARE [...] BE BASED ON THE PRIMARY CLINICAL RECORDS. [facility] [employer] [facility]. provides no warranty or guarantee of the accuracy or completeness of information in this document.
== END 2025-06-28 19:09 | disposition home or self-care (01) ==
LOC: LAB 19:08
PROVIDERS: PCP Physician Assistant; Visit Provider Obstetrics & Gynecology
DX: Z34.92 Encounter for supervision of normal pregnancy, unspecified, second trimester (principal)
CPT/HCPCS: 88175